=== PATIENT | male | born 1990 | race Two or more races ===

== ENCOUNTER 2020-03-27 16:32 | Outpatient (REF) | payer OTHER, SELFPAY ==
--- NOTE | 2020-03-27 | MR_ITS ---
EXAMINATION: MR LUMBAR SPINE WITHOUT CONTRAST CLINICAL INFORMATION: Low back pain. Radiculopathy. COMPARISON: None. TECHNIQUE: MRI of the lumbar spine was obtained using routine sequences without contrast. FINDINGS: VERTEBRAL BODIES AND PARASPINAL STRUCTURES: There is straightening of the normal lumbar lordosis. There is narrowing of and loss of signal from the intervertebral disc at L4-L5 and L5-S1. There are small Schmorl's nodes at multiple adjacent endplates in the lower thoracic and in the mid and upper lumbar spine. Vertebral body heights are maintained. No fractures are demonstrated. Overall, marrow signal is homogenous. The visualized retroperitoneal and pelvic structures are unremarkable. CONUS MEDULLARIS AND CAUDA EQUINA: Normal, terminating at the level of T12. The lower thoracic spinal cord appears normal. The cauda equina nerve roots and filum terminale appear normal. SPINAL LEVELS: L1-L2: The facet joints appear normal bilaterally. Disc contour is normal. There is no central stenosis or foraminal narrowing. L2-L3: The facet joints appear normal bilaterally. Disc contour is normal. There is no central stenosis or foraminal narrowing. L3-L4: The facet joints appear normal bilaterally. Disc contour is normal. There is no central stenosis or foraminal narrowing. L4-L5: The facet joints appear normal. There is a broad-based posterior disc protrusion with an annular fissure which distorts the ventral thecal sac and narrows the bilateral subarticular recesses. There is mild central stenosis. The neural foramina are patent bilaterally. L5-S1: The facet joints appear normal. There is a central and right paracentral disc protrusion with an annular fissure. There is no mass effect on the thecal sac, but there may be impingement on the traversing right S1 nerve root. The neural foramina are patent bilaterally. There is no central stenosis. MR/MR lumbar spine wo con IMPRESSION: 1. There is a posterior disc protrusion at L4-L5 with narrowing of the bilateral subarticular recesses and mild central stenosis. 2. At L5-S1 there is a central and right paracentral disc protrusion. There may be impingement on the traversing right S1 nerve root. There is no central stenosis.
== END 2020-03-27 16:33 | disposition home or self-care (01) ==
LOC: HO.MRI 16:32
PROVIDERS: PCP Nurse Practitioner Family; Visit Provider Nurse Practitioner Family
DX: M54.5 Low back pain (principal)
CPT/HCPCS: 72148

== ENCOUNTER 2020-03-28 13:31 | Outpatient (REF) | payer OTHER, SELFPAY ==
--- NOTE | 2020-03-28 14:41 | XR_ITS ---
EXAMINATION: CR X-RAY HAND THREE-VIEW BILATERAL CLINICAL INFORMATION: Abnormal on the unilateral findings and serum. COMPARISON: None TECHNIQUE: 3 views each of the bilateral hands were obtained. FINDINGS: There is no acute fracture or dislocation. The joint spaces are unremarkable. The carpal bones are normally aligned. The distal radius and ulna are intact. The soft tissues are unremarkable. XR/XR hand LT min 3V IMPRESSION: Unremarkable bilateral hands.
--- NOTE | 2020-03-28 14:41 | XR_ITS ---
EXAMINATION: CR X-RAY HAND THREE-VIEW BILATERAL CLINICAL INFORMATION: Abnormal on the unilateral findings and serum. COMPARISON: None TECHNIQUE: 3 views each of the bilateral hands were obtained. FINDINGS: There is no acute fracture or dislocation. The joint spaces are unremarkable. The carpal bones are normally aligned. The distal radius and ulna are intact. The soft tissues are unremarkable. XR/XR hand RT min 3V IMPRESSION: Unremarkable bilateral hands.
[2020-03-28 14:58] LABS: Basophils Absolute Auto 0.1 X10*3/uL (0.0-0.2); Basophils Percent Auto 0.9 % (0-2); Eosinophils Percent Auto 0.7 % (0-4); Hematocrit 44.8 % (42-52); Hemoglobin 14.9 g/dl (14.0-18.0); Imm Gran Abs Auto 0.01 X10*3/uL (0.00-0.03); Imm Gran Pct Auto 0.2 % (0.0-0.4); Lymphocytes Absolute Auto 1.6 X10*3/uL (1.2-4.9); Lymphocytes Percent Auto 29.6 % (20-40); Mean Corpuscular HGB Conc 33.3 g/dl (31.0-36.0); Mean Corpuscular Hemoglobin 31.8 pg (27.0-33.0); Mean Corpuscular Volume 95.5 fL (80-98); Mean Platelet Volume 10.6 fL (9.4-12.4); Monocytes Absolute Auto 0.5 X10*3/uL (0.1-1.2); Monocytes Percent Auto 8.4 % (2-11); Neutrophils Absolute Auto 3.2 X10*3/uL (2.0-8.3); Neutrophils Percent Auto 60.2 % (45-73); Platelet Count 196 X10*3/uL (160-400); Red Blood Count 4.69 X10*6/uL (4.60-5.80); Red Cell Distribution Width 12.3 % (11.0-16.0); White Blood Count 5.3 X10*3/uL (4.8-10.8)
[2020-03-28 14:59] LABS: MANUAL DIFF FLAG NO
[2020-03-28 15:29] LABS: Alanine Aminotransferase 27 U/L (0-40); Albumin Level 4.8 g/dL (3.5-5.0); Alkaline Phosphatase 56 U/L (39-117); Anion Gap 15 (12-20); Aspartate Amino Transferase 26 U/L (5-37); Bilirubin Total 0.7 mg/dL (0.0-1.0); Blood Urea Nitrogen 13 mg/dL (9-16); C Reactive Protein 0.09 mg/dL (< or = 0.50); Calcium 9.4 mg/dL (8.4-10.2); Carbon Dioxide 26 mmol/L (22-29); Chloride 102 mmol/L (96-108); Estimated Glomerular Filt Rate > 60; Glucose Random 100 mg/dL (60-115); Potassium 4.8 mmol/l (3.3-5.1); Rheumatoid Factor 43.7 IU/mL (<15.0); Sodium 138 mmol/L (135-145); Total Protein 8.3 g/dL (6.5-8.0)
[2020-03-28 15:57] LABS: Erythrocyte Sedimentation Rate 2 MM/HR (0-15)
[2020-03-29 08:24] LABS: HBsAGNum1 0.23 S/CO (0.00-0.99); Hepatitis A Antibody IgM 0.13 Index (0-0.79); Hepatitis B Surface Antigen Negative (Negative); ~HepC Num1 0.13 S/CO (0.00-0.79); ~Hepatitis A Antibody IgM Nonreactive (Nonreactive); ~Hepatitis C Antibody Nonreactive (Nonreactive)
[2020-03-29 08:27] LABS: HBS Num1 > 1000.00 mIU/mL (0-7.99); HBc Num1 0.08 S/CO (0.00-0.79); Hepatitis B Core Antibody Nonreactive (Nonreactive); ~Hepatitis B Surface Antibody REACTIVE (Nonreactive)
[2020-03-29 14:42] LABS: Complement C3 133 mg/dL (82-185)
[2020-03-30 12:03] LABS: Cyclic Citrullinated Peptide <16 UNITS
[2020-03-30 14:03] LABS: Anti DNA DS Antibody 1 IU/mL; Antibody to SS-A Antigen 1.6 POS AI (<1.0 NEG); Antibody to SS-B Antigen <1.0 NEG AI (<1.0 NEG); SM/Ribonucleoprotein Ab <1.0 NEG AI (<1.0 NEG); Smith Protein <1.0 NEG AI (<1.0 NEG)
[2020-03-30 21:47] LABS: Anti Nuclear Antibody Screen POSITIVE (NEGATIVE); Anti Nuclear Antibody Titer 1:40 titer
[2020-03-31 20:57] LABS: TS Negative Control Passed; TS Panel A 0; TS Panel B 1; TS Positive Control Passed; TSpotTB Negative (SeeBelow)
== END 2020-03-28 13:32 | disposition home or self-care (01) ==
LOC: HO.LAB 13:31
PROVIDERS: PCP Family Medicine; Visit Provider Student in an Organized Health Care Education/Training Program
DX: R76.8 Other specified abnormal immunological findings in serum (principal)
CPT/HCPCS: 36415; 73130; 80053; 85025; 85652; 86038; 86039; 86140; 86160; 86200; 86225; 86235; 86431; 86481; 86704; 86706; 86709; 86803; 87340; 99202

== ENCOUNTER → 2020-04-13 14:31 | Outpatient (BNVA) | payer OTHER, SELFPAY | PROVIDERS: PCP Family Medicine; Visit Provider Student in an Organized Health Care Education/Training Program | DX: Z13.89 Encounter for screening for other disorder (principal) ==

== ENCOUNTER → 2020-10-10 15:31 | Outpatient (BNVA) | payer OTHER, SELFPAY | PROVIDERS: PCP Internal Medicine Hematology & Oncology; Visit Provider Student in an Organized Health Care Education/Training Program | DX: M75.81 Other shoulder lesions, right shoulder (principal); M75.82 Other shoulder lesions, left shoulder; R76.8 Other specified abnormal immunological findings in serum | CPT/HCPCS: 99212 ==

== ENCOUNTER 2021-05-06 18:11 | Emergency (ER) | payer OTHER, SELFPAY ==
--- NOTE | ~2021-05-06 | XR_ITS ---
EXAMINATION: XR WRIST, RIGHT XR FOREARM, RIGHT CLINICAL INFORMATION: Fall on ice. Deformity. COMPARISON: Hand radiograph dated 03/28/2020 TECHNIQUE: PA, lateral, and oblique views of the right wrist. AP and lateral views of the right forearm. FINDINGS: There is a transverse Colles fracture of the distal radius with one half shaft width of dorsal displacement of the distal fracture fragment as well as dorsal tilt of the distal radial articular surface (32 degrees). A few comminuted cortical fragments are evident posteriorly. No appreciable articular cortical involvement. Distal ulna is intact. Soft tissues are swollen. Carpal bones are normal. There is soft tissue swelling in the forearm. No proximal fractures are identified at the radius and ulna. Elbow is unremarkable. XR/XR forearm RT 2V IMPRESSION: Angulated, displaced transverse fracture of the distal radius without appreciable articular involvement.
--- NOTE | ~2021-05-06 | XR_ITS ---
EXAMINATION: XR WRIST, RIGHT CLINICAL INFORMATION: Postreduction. COMPARISON: Same date at 6:58 PM TECHNIQUE: PA, lateral, and oblique views of the right wrist. FINDINGS: Splint material is in place. There is persistent dorsal displacement of the distal radial fracture fragment by two thirds of the shaft width (1.5 cm). There is associated fragment impaction. Angulation is improved as compared to prior. No new fractures. Soft tissues are swollen. XR/XR wrist RT min 3V IMPRESSION: Improved alignment of the distal radial fracture status post reduction with persistent dorsal displacement of the distal fracture fragment.
--- NOTE | ~2021-05-06 | XR_ITS ---
EXAMINATION: XR WRIST, RIGHT XR FOREARM, RIGHT CLINICAL INFORMATION: Fall on ice. Deformity. COMPARISON: Hand radiograph dated 03/28/2020 TECHNIQUE: PA, lateral, and oblique views of the right wrist. AP and lateral views of the right forearm. FINDINGS: There is a transverse Colles fracture of the distal radius with one half shaft width of dorsal displacement of the distal fracture fragment as well as dorsal tilt of the distal radial articular surface (32 degrees). A few comminuted cortical fragments are evident posteriorly. No appreciable articular cortical involvement. Distal ulna is intact. Soft tissues are swollen. Carpal bones are normal. There is soft tissue swelling in the forearm. No proximal fractures are identified at the radius and ulna. Elbow is unremarkable. XR/XR wrist RT 2V IMPRESSION: Angulated, displaced transverse fracture of the distal radius without appreciable articular involvement.
[2021-05-06 18:42] VITALS: BP 134/94; PULSE 115; RESP 20; TEMP 36.6; O2SAT 99; BMI 31.5
[2021-05-06] MEDS: Lidocaine HCl 1 % MPF 5 ML VIAL SUBCUT (20:20)
[2021-05-06] MEDS: Lidocaine HCl 1 % MPF 5 ML VIAL 10 ML SUBCUT (20:20)
--- NOTE | 2021-05-06 20:49 | ED_ITS ---
HPI - Extremity Problem General Chief complaint: Extremity Injury, Upper Stated complaint: broken arm? fell on arm Time Seen by Provider: 05/06/21 19:08 History of Present Illness HPI Narrative: Patient is a 31-year-old male status post accidental fall on an outstretched hand. Complaining of pain to the right wrist area. No head injury. Not on blood thinners. Patient tripped in his house. No significant past medical history. No coughing no congestion or upper respiratory symptoms. No diaphoresis. Related Data Previous Rx's Medication Instructions Recorded ibuprofen 400 mg tablet 400 mg PO Q6H PRN #20 tab 05/06/21 oxycodone 5 mg tablet 5 mg PO Q8H PRN #7 tab 05/06/21 Allergies Allergy/AdvReac Type Severity Reaction Status Date / Time No Known Allergies Allergy Verified 10/10/20 15:34 [No Known Allergies*] Review of Systems Verdana 4l Review of Systems: Verdana 4d No fever no chills no chest Verdana 4d pain or shortness of breath no nausea no vomiting. No focal weakness Verdana 4d Yes all other systems are reviewed and are negative [facility] Past Medical History Attestation statement: The following information was validated with the patient. Medical History JERRICA positive PTSD (post-traumatic stress disorder) Surgical History No significant past surgical history Social History Social History Alcohol intake: current Alcohol intake frequency: a few times a week Alcohol type: wine Cigarettes Per Day: 5 Advance Directives: No Physical Exam Verdana 4l Vital Signs: Verdana 4d Verdana 4d Vital Signs: Verdana 4d Verdana 4Bd Last Vital Signs Verdana 4d Crystal Cutter New 4d Crystal Cutter New 4d Temp 98 F 05/06/21 18:42 Crystal Cutter New 4d Pulse 115 H 05/06/21 18:42 Crystal Cutter New 4d Resp 20 05/06/21 18:42 BP 134/94 H 05/06/21 18:42 Pulse Ox 99 05/06/21 18:42 BMI result Body Mass Index 31.5 Appearance: Alert. Oriented X3. No acute distress. Eyes: Pupils equal, round and reactive to light. ENT: Pharynx normal. Neck: Normal inspection. Neck supple. No lymph nodes noted. No crepitus CVS: Normal heart rate and rhythm. Pulses normal. Normal S1 and S2 Respiratory: No respiratory distress. Breath sounds normal. No Wheezing. No rales Abdomen: Soft and nontender. No rigidity. No distention. good BS x4 Skin: Skin warm and dry. Normal skin color. Normal skin turgor. Extremities: Deformity to the distal right wrist. Distal sensation over the median radial ulnar nerve intact. Moving the finger intact. Capillary refill intact. Neurovascular intact to all extremities. No Lacerations. No Rash Neuro: Oriented X 3. No motor deficit. No sensory deficit. Moving all extermities. No slurred speech MDM - Extremity (Nontraumatic) MDM Narrative Medical decision making narrative: X-ray showed a distal radius fracture. The skin was intact distal neurovascularly intact. Patient well-appearing. After consent was obtained. A hematoma block was applied to the wrist. 5 cc of lidocaine was used. The skin was cleaned with Betadine subsequently a 23 gauge needle was inserted. On draw back there is positive blood. 5 cc of the lidocaine was injected. Good anesthesia was achieved. Attempted to reduce the wrist using hyper extension and then full extension. Patient was then placed in a sugar-tong splint. Post reduction x-ray showed the fracture not dramatically improved. The finding was discussed with orthopedics. Will leave the splint in place and have patient follow-up with Ortho tomorrow morning. In stable condition. Discharge Plan Discharge Clinical Impression: Colles' fracture Patient Disposition: Home, Self-Care Instructions: Wrist Fracture in Adults (ED), Splint Care (ED) Prescriptions: New ibuprofen 400 mg tablet 400 mg PO Q6H PRN (Reason: pain) Qty: 20 0RF oxycodone 5 mg tablet 5 mg PO Q8H PRN (Reason: pain) Qty: 7 0RF Referrals: Joon Rodriguez MD [Physician] - 1 day
[2021-05-06 21:07] VITALS: BP 119/82; PULSE 95; RESP 18; TEMP 36.8; O2SAT 97
[2021-05-06] MEDS: HYDROmorphone HCl 2 MG TABLET PO (21:30)
--- NOTE | 2021-05-06 22:02 | PC.NURSE ---
i ASSUMED CARE OF THIS PT UPON HIS ARRIVAL TO BED 16 WHERE HE PRESENTED S/P rue XRAY FOR EVALUATION OF r WRIST/fa PAIN S/O SLIP AND FALL OUTSIDE PRIOR TO ARRVIAL. tHERE IS OBVIOUS SWELLING NOTED TO r WRIST. pT WAS ADMINISTERED A BLOCKING AGENT AND FRACTURE WAS REDUCED AND SPLINTED.
== END 2021-05-06 22:03 | disposition home or self-care (01) ==
PROVIDERS: Emergency Provider Emergency Medicine Emergency Medical Services; PCP Internal Medicine Endocrinology, Diabetes & Metabolism
DX: S52.531A Colles' fracture of right radius, initial encounter for closed fracture (principal); W01.0XXA Fall on same level from slipping, tripping and stumbling without subsequent striking against object, initial encounter; Y93.9 Activity, unspecified; Y92.9 Unspecified place or not applicable; Y99.9 Unspecified external cause status; Z79.899 Other long term (current) drug therapy
CPT/HCPCS: 73090; 73100; 73110; 96372; 99284

== ENCOUNTER 2021-05-09 12:12 | Outpatient (REF) | payer OTHER, SELFPAY ==
--- NOTE | ~2021-05-09 | XR_ITS ---
EXAMINATION: XR WRIST, RIGHT CLINICAL INFORMATION: Fracture, follow-up COMPARISON: Radiographs right wrist 05/06/2021, TECHNIQUE: PA, lateral, and oblique views of the right wrist. FINDINGS: There is a fracture distal radius with dorsal displacement distal fracture fragment by at least one half bone diameter and mild impaction. The oblique view suggests additional fine linear intra-articular extension on the medial side distal radial fracture fragment. There is an overlying fiberglass splint. No dislocation or destructive process. Remainder of the bony structures appear intact. XR/XR wrist RT min 3V IMPRESSION: Displaced fracture distal right radius with probable intra-articular extension and overlying fiberglass splint.
== END 2021-05-09 12:13 | disposition home or self-care (01) ==
LOC: HO.HOSX 12:12
PROVIDERS: PCP Internal Medicine Endocrinology, Diabetes & Metabolism; Visit Provider Orthopaedic Surgery
DX: S52.501A Unspecified fracture of the lower end of right radius, initial encounter for closed fracture (principal)
CPT/HCPCS: 73110; 99202

== ENCOUNTER 2021-05-10 08:08 | Day surgery (SDC) | payer OTHER, SELFPAY ==
[2021-05-10] VITALS (9 sets, daily range): BP systolic 110–134; BP diastolic 68–77; PULSE 56–71; RESP 16–18; TEMP 36.1–36.4; O2SAT 93–97; BMI 31.5
--- NOTE | ~2021-05-10 | FL_ITS ---
EXAMINATION: XR FLUOROSCOPY WITH IMAGES CLINICAL INFORMATION: Reduction distal radius radial fracture. COMPARISON: Radiographs right wrist 05/09/2021, 05/06/2021 TECHNIQUE: Fluoroscopy performed by Dr. Karen Lema. Fluoroscopy time: 1.16 minutes DAP: [id number] Images: 4 FINDINGS: Distal radial fracture is reduced with volar side plate and screws. Fracture fragments are in near-anatomic alignment. Visualized hardware appear intact. FL/FL guidance in OR IMPRESSION: Fluoroscopy for orthopedic procedure.
[2021-05-10] MEDS: Lactated Ringers 1,000 ML 80 ML IVCONT (09:00)
--- NOTE | 2021-05-10 10:11 | HO.ANESPROP2 ---
HPI - Anesthesia Eval Consult details Narrative: 31 M for ORIF right radius PMFSH Active Problems Active Problems: All Active Problems (Updated 05/09/21 @ 12:52 by Karen Lema MD) Distal radius fracture, right (Acute) Tendinitis of both rotator cuffs (Acute) Elevated rheumatoid factor (Acute) JERRICA positive (Acute) Past Medical History Medical History JERRICA positive PTSD (post-traumatic stress disorder) Family History Family history of problems with anesthesia: No Surgical History Surgical History No significant past surgical history History of Problems with Anesthesia: No Social History Social History (Updated 05/09/21 @ 12:54 by GUANAKO Resendez) Alcohol intake: current Alcohol intake frequency: a few times a week Alcohol type: wine Patient Tobacco Use Status: Former Tobacco user Cigarettes Per Day: 5 Use of substances other than those prescribed or required for medical reasons: No Are you DNR?: No Advance Directives: No Advance Directives Information Provided: Yes Current occupational status: employed 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 Allergies Allergy/AdvReac Type Severity Reaction Status Date / Time No Known Allergies Allergy Verified 05/10/21 08:37 [No Known Allergies*] Exam Exam Date and Time: May 10, 2021 1011 Height,Weight and Vital Signs: Height 5 ft 10 in Weight 99.79 kg Last Vital Signs Temp 97.6 F 05/10/21 08:40 Pulse 58 05/10/21 08:40 Resp 18 05/10/21 08:40 BP 134/75 05/10/21 08:40 Pulse Ox 97 05/10/21 08:40 Airway Mallampati Class: III TM Dist: >3cm Neck ROM: Limited Loose/Missing/Broken Teeth: Yes (Chipped lower ) Heart: rrr Lungs: bl breath sounds Assessment and Plan Assessment Anesthesia Assessment: Anesthesia Plan Discussed and Chart Reviewed Final Anesthetic Review Family History of Problems with Anesthesia: No History of Problems with Anesthesia: No NPO: Yes ASA Class: II Final Preanesthetic Review: Meds/Allgs Chart Reviewed, Consent Obtained/Reviewed and Anes Risks/Benef Reviewed Patient Risk: Intermediate Procedure Risk: Intermediate Assessment/Block/Sedation in SS: Assess/Block/Sedation-SS Anesthetic Plan Anesthetic Plan: GA and Regional Block Disposition: Standard PACU
--- NOTE | 2021-05-10 10:54 | MHC.SHP ---
Pre-Procedural Eval Section A Date of Service: 05/10/21 The patient is an INPATIENT: No Changes since office visit: No Cold of Flu in the past 2 weeks, No New Medical Problems, No Changes in Medication and No Patient answered all questions The History & Physical has been completed within 30 days and I have reviewed it.: Yes Section B Chief Complaint: fx of lower end right radius Allergies: Allergies Allergy/AdvReac Type Severity Reaction Status Date / Time No Known Allergies Allergy Verified 05/10/21 08:37 [No Known Allergies*] Plan I have reviewed the history and physical and performed a pertinent physical examination on my patient. No changes have occurred unless specified.
--- NOTE | 2021-05-10 11:00 | P.OP_ITS ---
Operative Note Operative Note Date of Service: 05/10/21 Narrative: Operative Note Narrative: Preop diagnosis: 1.right Distal radius fracture , intra-articular Postop diagnosis: Same Procedure: 1. Right Distal radius fracture open reduction internal fixation, 2 part intra-articular Surgeon: Karen Lema MD Anesthesia: Mac plus regional block Findings: [ ] Implants: A 3 hole Accu Med volar locking plate, with [ ] 2.3 mm locking pegs/screws, and 3 3.5 mm cortical screws Tourniquet time: [ ] minutes EBL: 5.0 ml Specimen: None Drains: None Complications: None Disposition: Brought to the recovery room in stable condition Plan: Follow-up in 10-14 days for wound check, suture removal and postop radiographs The patient will be placed in either a short-arm cast or a volar wrist splint. Encouraged no lifting of anything heavier than a cell phone. Please encourage active and passive range of motion of the digits. Follow-up at 4-5 weeks postop for repeat radiographs. Indications: The patient is a 31 year old man with right intra-articular distal radius fracture with essentially 100% dorsal translocation of the distal radius . The risks and benefits of operative treatment, including but not limited to risk of damage to blood vessels, nerves, tendons, infection, recurrence, persistent pain or numbness, incomplete resolution of preoperative symptoms, or need for further surgery were discussed with the patient and they wished to proceed with surgery. Procedure: Once consent was obtained patient was brought back to the operating suite and placed in the operating table in a supine position. A regional block was performed by the anesthesia team. Perioperative antibiotics and anesthesia was administered by the anesthesia team. A tourniquet was applied to the proximal aspect of the right upper extremity and the limb was prepped and draped in a standard surgical fashion. The limb was elevated exsanguinated with Esmarch bandage and the tourniquet inflated to 250 mm of mercury for a total tourniquet time of [ ] minutes. The FluoroScan was used throughout the case to assess our reduction, and facilitate implant placement. A gentle closed reduction was 1st performed on the patient's right distal radius fracture. Was assessed radiographically before proceeding with the reduction internal fixation. I then made an 8 cm longitudinal incision over the distal aspect of the flexor carpi radialis tendon. The incision was made through the skin to the subcutaneous tissue using a 15. Blade. Then carefully dissected down to flexor carpi radialis tendon she tenotomy scissors. The FCR tendon sheath was then incised longitudinally using tenotomy scissors under direct visualization. The FCR tendon was then retracted ulnarly. I then made a longitudinal incision in the volar forearm fascia through the floor of FCR tendon sheath using tenotomy scissors under direct visualization. I identified the interval between the radial artery and the flexor tendons. This interval was developed further with my index finger, releasing some of the muscular fibers of the flexor pollicis longus. A dull weatlander retractor was then placed. I then created an ulnarly based flap of the pronator quadratus by releasing the radial and distal edges using a 15. Blade. A Sarmiento elevator was used to elevate the pronator quadratus from the volar surface of the distal radius. This then revealed to us our distal radius fr acture. An open reduction was then performed on our distal radius fracture. I then placed a short [narrow] 3 hole Accu Med volar locking plate on the volar surface of the distal radius. I placed a single K-wire through the distal aspect of the plate and into the distal radius. This was assessed using fluoroscopic images. I was satisfied with the placement of our plate. I then placed [ ] 2.3 mm locking screws/pegs in the distal aspect of the plate and distal radius by 1st drilling bicortically with a 1.8 mm drill bit, measuring with a depth gauge, and placing the appropriate length locking screws/pegs. The placement of our plate and screws was then assessed again using fluoroscopic images. The once satisfied with the placement of the volar locking plate and screws on the distal aspect of the distal radius, the plate was then reduced to the shaft of the radius. I then placed 3 3.5 mm cortical screws to the proximal aspect of the plate and into the shaft of the radius. This was done by 1st drilling bicortically with a 2.8 mm drill bit, measuring with a depth gauge, and placing the appropriate length screw. Final radiographs were then obtained. The DRUJ was assessed and found to be stable on exam. I was satisfied with our reduction and placement of all implants. At this point the wound was irrigated with normal saline. The pronator quadratus was reduced back over the volar locking plate using some 3-0 Vicryl suture material. The tourniquet was then deflated and hemostasis was obtained with a brief period of local pressure and bipolar monopolar electrocautery. The subcutaneous layer was then reapproximated using some 4-0 Vicryl suture, and the skin edges were reapproximated using some 5 0 Prolene suture. The wound was then infiltrated with some 1% lidocaine with epinephrine postop pain control. A sterile dressing and a short dorsal splint allowing for active flexion and extension of the digits was applied. The patient appears to have tolerated the procedure well and with no complications. All digits were well vascularized conclusion of the case.
== END 2021-05-10 15:25 ==
LOC: HO.SSS 08:09
PROVIDERS: PCP Nurse Practitioner Family; Visit Provider Orthopaedic Surgery
PROC: (CPT 25608; principal; 2021-05-10 09:30)
DX: S52.571A Other intraarticular fracture of lower end of right radius, initial encounter for closed fracture (principal); W00.0XXA Fall on same level due to ice and snow, initial encounter; Y93.K1 Activity, walking an animal; Y92.9 Unspecified place or not applicable; Y99.8 Other external cause status; F43.10 Post-traumatic stress disorder, unspecified; R76.0 Raised antibody titer
CPT/HCPCS: 25608; C1713; C1769; J0690; J1100; J1170; J2250; J2405; J3010

== ENCOUNTER 2021-05-23 11:13 | Outpatient (REF) | payer OTHER, SELFPAY ==
--- NOTE | ~2021-05-23 | XR_ITS ---
EXAMINATION: XR WRIST, RIGHT CLINICAL INFORMATION: Fracture COMPARISON: Previous x-rays most recent 05/10/2020 TECHNIQUE: PA, lateral, and oblique views of the right wrist. FINDINGS: There is a plate and screws transfixing the right distal radius fracture. Hardware and alignment appears unchanged. Fracture lines are still seen. No other fracture is seen. Joint spaces are normal. There is overlying soft tissue swelling. XR/XR wrist RT min 3V IMPRESSION: ORIF of right distal radius fracture.
== END 2021-05-23 11:14 | disposition home or self-care (01) ==
LOC: HO.HOSX 11:13
PROVIDERS: Visit Provider Physician Assistant
DX: S52.501D Unspecified fracture of the lower end of right radius, subsequent encounter for closed fracture with routine healing (principal)
CPT/HCPCS: 29085; 73110; 99212

== ENCOUNTER 2021-06-04 12:06 | Outpatient (REF) | payer OTHER, SELFPAY ==
[2021-06-05 13:08] LABS: H Pylori Breath Test Negative (Negative)
== END 2021-06-04 12:07 | disposition home or self-care (01) ==
LOC: HO.LNP 12:06
PROVIDERS: PCP Internal Medicine Endocrinology, Diabetes & Metabolism; Visit Provider Nurse Practitioner Family
DX: R10.9 Unspecified abdominal pain (principal); K21.9 Gastro-esophageal reflux disease without esophagitis; K58.1 Irritable bowel syndrome with constipation; R14.0 Abdominal distension (gaseous)
CPT/HCPCS: 83013; 99202

== ENCOUNTER → 2021-06-12 12:32 | Outpatient (BNVA) | payer OTHER, SELFPAY | PROVIDERS: PCP Internal Medicine Endocrinology, Diabetes & Metabolism; Visit Provider Physician Assistant | DX: S52.501D Unspecified fracture of the lower end of right radius, subsequent encounter for closed fracture with routine healing (principal) | CPT/HCPCS: 29085 ==

== ENCOUNTER 2021-06-27 08:41 | Outpatient (REF) | payer OTHER, SELFPAY ==
--- NOTE | ~2021-06-27 | XR_ITS ---
EXAMINATION: XR WRIST, RIGHT CLINICAL INFORMATION: Pain in right wrist. COMPARISON: Right wrist 05/20/2021 TECHNIQUE: PA, lateral, and oblique views of the right wrist. FINDINGS: There is a comminuted distal radial fracture stabilized with volar plate and screws with fracture fragment in alignment. No change since 05/23/2021 exam. No new fractures seen. XR/XR wrist RT min 3V IMPRESSION: Stabilized distal radial comminuted fracture with volar plate and screws.
== END 2021-06-27 08:42 | disposition home or self-care (01) ==
LOC: HO.HOSX 08:41
PROVIDERS: Visit Provider Orthopaedic Surgery
DX: M25.531 Pain in right wrist (principal); S52.571A Other intraarticular fracture of lower end of right radius, initial encounter for closed fracture; W00.0XXA Fall on same level due to ice and snow, initial encounter; Y93.89 Activity, other specified; Y92.89 Other specified places as the place of occurrence of the external cause; Y99.0 Civilian activity done for income or pay; Z87.891 Personal history of nicotine dependence; Z79.1 Long term (current) use of non-steroidal anti-inflammatories (NSAID); Z79.891 Long term (current) use of opiate analgesic; Z79.899 Other long term (current) drug therapy
CPT/HCPCS: 73110; 99212

== ENCOUNTER 2021-07-25 07:08 | Outpatient (REF) | payer OTHER, SELFPAY ==
--- NOTE | ~2021-07-25 | XR_ITS ---
EXAMINATION: XR WRIST, RIGHT CLINICAL INFORMATION: Right wrist pain. COMPARISON: 06/27/2021 right wrist radiographs. TECHNIQUE: PA, lateral, and oblique views of the right wrist. FINDINGS: The patient is status post distal radial ORIF transfixing a comminuted distal radial fracture with good anatomic alignment and no evidence for hardware malfunction. The fracture lines are still visible without significant interval change. XR/XR wrist RT min 3V IMPRESSION: Good anatomic alignment without hardware abnormality or significant change.
== END 2021-07-25 07:09 | disposition home or self-care (01) ==
LOC: HO.HOSX 07:08
PROVIDERS: Visit Provider Physician Assistant
DX: S52.501D Unspecified fracture of the lower end of right radius, subsequent encounter for closed fracture with routine healing (principal)
CPT/HCPCS: 73110; 99212

== ENCOUNTER 2021-09-18 09:17 | Outpatient (REF) | payer OTHER, SELFPAY ==
--- NOTE | ~2021-09-18 | XR_ITS ---
EXAMINATION: XR WRIST, RIGHT CLINICAL INFORMATION: Follow-up fracture COMPARISON: Previous x-rays most recent June 2021 TECHNIQUE: PA, lateral, and oblique views of the right wrist. FINDINGS: There is ORIF of right distal radius fracture. Orthopedic hardware appears intact. Alignment is unchanged. Fracture lines appear more indistinct suggestive of evidence of healing. There are small soft tissue calcifications or ossifications adjacent to the ulnar styloid. Soft tissues are otherwise unremarkable. XR/XR wrist RT min 3V IMPRESSION: Healing right distal radius fracture.
== END 2021-09-18 09:18 | disposition home or self-care (01) ==
LOC: HO.HOSX 09:17
PROVIDERS: Visit Provider Orthopaedic Surgery
DX: S52.501D Unspecified fracture of the lower end of right radius, subsequent encounter for closed fracture with routine healing (principal)
CPT/HCPCS: 73110; 99212

== ENCOUNTER 2021-12-31 12:11 | Emergency (ER) | payer OTHER, SELFPAY ==
[2021-12-31 12:40] VITALS: BP 136/78; PULSE 76; RESP 18; TEMP 36.9; BMI 31.5
--- NOTE | 2021-12-31 15:33 | ED.BACK ---
HPI - Back Pain/Injury General Chief Complaint: Back Pain/Injury Stated Complaint: Back pain sent from [place] Time Seen by Provider: 12/31/21 15:10 Source: patient Mode of arrival: wheelchair Limitations: no limitations History of Present Illness HPI Narrative: Patient presents emergency department for evaluation of diffuse lower back pain right greater than the left. He states that yesterday he was bending forward and upon standing he felt sudden onset of sharp pain to the lower back. Radiates intermittently to the bilateral legs with weight-bearing. He reports a history of similar pain in the past. Over the past approximate 10 years has episodes of severe back pain every 3-6 months. Denies anything ever having worked for his pain in the past. He is unaware of any known injury to his back. Today he trialed ibuprofen without improvement. Yesterday he trialed oxycodone that was left over from a wrist fracture which did not help his pain either. Patient contacted his primary care doctor and was advised to come to the emergency department. Denies fevers, chills, burning with micturition, urinary frequency/urgency/hesitancy, bladder or bowel dysfunction, numbness or tingling of the perineum or bilateral legs. Denies any recent surgical procedures, any known immune compromising conditions, personal history of cancer, or IV drug usage. MD elicited complaint: back pain Related Data Previous Rx's Medication Instructions Recorded ibuprofen 400 mg tablet 400 mg PO Q6H PRN pain #20 tabs 05/06/21 ibuprofen 600 mg tablet 600 mg PO Q6-8H PRN pain #40 tabs 05/10/21 pantoprazole 40 mg tablet,delayed 40 mg PO DAILY #30 tabs 06/04/21 release sennosides 8.6 mg tablet (Natural 8.6 mg PO BEDTIME constipation #30 06/04/21 Senna Laxative) tabs diazepam 5 mg tablet 5 mg PO BID PRN muscle spasm #7 12/31/21 tabs Allergies Allergy/AdvReac Type Severity Reaction Status Date / Time No Known Allergies Allergy Verified 09/18/21 15:04 [No Known Allergies*] Review of Systems Review of Systems: Constitutional: No weight loss, fever, chills, weakness or fatigue. HEENT: No visual loss, blurred vision, double vision. No hearing loss, sneezing, congestion, runny nose or sore throat. Skin: No rash or itching. Cardiovascular: No chest pain, chest pressure or chest discomfort. No palpitations or pedal edema. Respiratory: No shortness of breath, cough or sputum production. Gastrointestinal: No anorexia, nausea, vomiting or diarrhea. No abdominal pain or blood in stool. Genitourinary: No burning micturition. No urinary frequency or incontinence. Neurologic: No headache, dizziness, syncope, unilateral weakness, ataxia, numbness or tingling in the extremities. No change in bowel or bladder control. Musculoskeletal: + Back pain as noted in HPI. No joint pain or stiffness. Hematologic: No bleeding or bruising. Lymphatics: No enlarged lymph nodes. Psychiatric:No depression or anxiety. Endocrine: No polyuria or polydipsia. Yes all other systems are reviewed and are negative [facility] Past Medical History Attestation statement: The following information was validated with the patient. 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 Blood pressure normal.? Heart rate normal.? Respiration rate normal. Temperature normal.? Oxygen saturation normal. Appearance: Alert.?Oriented to person, place and time. No acute distress.?Normal affect. Eyes: Pupils equal, round and reactive to light.? ENT: Pharynx normal.?? Neck: Normal inspection.? Neck supple.?? CVS: Heart sounds normal. Normal heart rate and rhythm.? Pulses normal; bilateral radial pulses 2+, bilateral posterior tibial/dorsalis pedis pulses 2+.? Respiratory: No respiratory distress.? Lung sounds clear to auscultation bilaterally?? Abdomen: Soft and non-tender. Normoactive bowel sounds. No pulsatile mass.?? Skin: Skin warm and dry.? Normal skin color.? Normal skin turgor.?? Extremities: No lower extremity edema.? No calf ttp? Back: + moderate paraspinal muscular tenderness from lumbar region to coccyx. No CVA tenderness. No midline spinal tenderness, step-off's, or deformity. Decreased ROM to bilateral lower extremities. Straight leg test positive on right with minimal movement; Straight leg test positive on left with minimal movement. No rashes, lesions, areas of induration or fluctuance, or signs of infection noted. Neuro: Moves all extremities spontaneously. Sensation to light touch intact bilaterally. Patellar and Achilles reflex 2+ bilaterally. Patient with significant difficulty transferring from wheelchair requiring to assist from staff. No focal neuro deficits. Course Course Course Narrative: Patient is a 31-year-old male with a past medical history PTSD, chronic lower back pain presenting to emergency department today for evaluation of back pain. Onset was yesterday precipitated by bending forward and sudden pain upon standing. Pain is diffuse across the lower back, has palpable tenderness of the paraspinal muscles, at this time pain is most consistent with muscular pain, although cannot completely exclude herniated disc. On neurological exam there are no deficits. Not consistent with spinal fracture, spinal infection, epidural abscess, AAA, or dissection. No high risk past medical history including incontinence, fever, immunosuppression, recent surgery or lumbar puncture, coagulopathy, significant trauma, recent unintentional weight loss, pulsatile mass, history of cancer, history of TB, history of IV drug use that would warrant MRI or CT. Not consistent with pyelonephritis, urinary tract infection, renal calculi. On exam no concern for cauda equina syndrome. Of note patient underwent lumbar spine MRI in February 2020, denies having any more recent MRIs, revealed disc protrusion at L4-L5 and mild central stenosis as well as disc protrusion at L5-S1 with possible nerve root impingement and no central stenosis. At this time will trial diazepam orally and re-evaluate Reevaluation(s) Reevaluation #1: Spoke with patient at this time, he is requesting to have an MRI obtained as he was advised by his primary care provider to come to the emergency department to have an MRI done. Discussed with patient at this time there is no indications for an MRI. Patient declined having rectal examination performed, stating that these have been performed in the past without any abnormalities. Again, based on current available physical exam findings there are no neurological deficits. Patient received diazepam approximately 40 minutes ago without significant improvement at this time. Time: 16:42 Reevaluation #2: Patient noted to be ambulating at this time with slow steady gait and the use of a cane, and a visitor by his side. Reports improvement in pain after diazepam. No imaging is currently indicated at this time. Plan for discharge home with short prescription for diazepam, reviewed worrisome signs and symptoms to return back to the emergency department for, and follow-up with primary care provider, and patient agreed with plan. Discharged home in stable condition. Time: 17:27 MDM - Back Pain/Injury Medical Records Attestation: I reviewed the patient's medical records. Discharge Plan Discharge Clinical Impression: Lumbar radiculopathy Patient Disposition: Home, Self-Care Instructions: Lumbar Radiculopathy (ED), Lower Back Exercises (ED) Additional Instructions: You can take ibuprofen 200 mg, 3 tablets (600mg) every 6-8 hours as needed for pain, in addition to Tylenol 500 mg, 2 tablets (1,000mg) every 4-6 hours as needed for pain, but not to exceed 3 doses daily (3,000mg).? You have been given a new prescription for diazepam to use as needed for severe pain. This medication may make you drowsy, you should not drive, drink alcohol, operate machinery, or work while taking this medication. Please contact your primary care provider and arrange for a follow-up visit. Return to the emergency department with any new or significantly worsening symptoms or concerns Prescriptions: New diazepam 5 mg tablet 5 mg PO BID PRN (Reason: muscle spasm) Qty: 7 0RF No Action ibuprofen 400 mg tablet 400 mg PO Q6H PRN (Reason: pain) Qty: 20 0RF ibuprofen 600 mg tablet 600 mg PO Q6-8H PRN (Reason: pain) Qty: 40 0RF sennosides [Natural Senna Laxative] 8.6 mg tablet 8.6 mg PO BEDTIME Qty: 30 3RF pantoprazole 40 mg tablet,delayed release (DR/EC) 40 mg PO DAILY Qty: 30 2RF Rx Instructions: take one tablet half an hour before breakfast
--- OUTSIDE RECORDS SUMMARY | 2021-12-31 15:55 | XMS_ITS | Encounter Summary ---
:1990 Author Organization [facility] Address [address] [place] [id number] Support Name Relationship Address Phone RESHMA ROUSE Unavailable [address] [place] [address] RESHMA ROUSE Unavailable [address] [place] [address] Selected Encounter This section includes the information on record at [place] for the Encounter. Date/Time Encounter Type Encounter Reason Provider Source Description Feb 02, 2021 PSYCL TST EVAL PSYCHOLOGICAL ICD-10-CM MALINOFSKY,TER 10:30 AM PHYS/QHP EA TESTING F43.12 JESSICA Post-traumatic stress disorder, chronic with Provider Comments: Chronic post-traumatic stress disorder following combat ([facility] [id number]) IHE Encounter Template Text not used by [facility] Assessments - Encounter Diagnoses This section includes the primary and secondary diagnoses documented for the Encounter. 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 This section includes future appointments and future orders which are active, pending orscheduled.Future Appointments This section includes appointments that were scheduled to occur 6 months from the date of the Encounter, up to a maximum of 20 appointments. The data comes from all [place] treatment facilities. Appointment Date/Time Appointment Type Appointment Facili ty Name Feb 28, 2021 11:00 AM AMBULATORY - PSYCHIATRY [place] [facility] [place] [facility] Mar 07, 2021 01:00 PM AMBULATORY - PSYCHIATRY [place] [facility] [place] [facility] Mar 14, 2021 01:00 PM AMBULATORY - PSYCHIATRY [place] [facility] [place] [facility] Apr 27, 2021 11:30 AM AMBULATORY - MEDICINE [place] [facility] [place] [facility] May 07, 2021 08:15 AM AMBULATORY - REHAB MEDICINE [place] [facility] [place] [facility] May 09, 2021 12:15 PM AMBULATORY - MEDICINE [place] [facility] [place] [facility] Jun 04, 2021 12:00 PM AMBULATORY - MEDICINE [place] [facility] [place] [facility] Social History: Smoking Status (Most current) and Tobacco Use (All prior to encounter date) This section includes the most current, and the historical, smoking and tobacco-related health factors from the [facility] facility where the Encounter took place.Current Smoking Status This section includes the most current smoking, or tobacco-related health factor, from the [place] facility where the Encounter took place. Date/Time Current Smoking Status Comment Facility August 03, 2020 02:00 PM VA-TOBACCO USER EVERY DAY [facility] Tobacco Use History This section includes a history of the smoking, or tobacco- related health factors, that were collected on or before the date of the Encounter. The data comes from the [place] facility where the Encounter took place. 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 August 03, 2020 02:00 PM VA-TOBACCO USER EVERY DAY [facility] August 10, 2019 01:26 PM VA-TOBACCO NEVER USED [facility] Jul 15, 2018 03:43 PM VA-TOBACCO FORMER USER [facility] Jul 15, 2018 03:43 PM VA-TOBACCO QUIT 1 TO < 5 V A CNTRL WSTRN YRS [facility] August 22, 2017 03:08 PM QUIT TOBACCO USE 1-7 VA CN TRL WSTRN YEARS AGO [facility] August 22, 2017 03:08 PM V1-QUIT TOBACCO USE > 1 VA [facility] W[facility] YEAR AGO [facility] Dec 31, 2016 01:45 PM QUIT TOBACCO USE IN PAST V A CNTRL WSTRN YEAR quit 11/21/16 [facility] Nov 20, 2016 08:15 PM TOBACCO INPATIENT [facility] DECLINES MEDS [facility] Jun 26, 2016 07:05 AM CURRENT SMOKER [facility] Jun 26, 2016 07:05 AM V1-PT NOT INTERESTED IN [facility] QUIT TOBACCO USE [facility] Feb 28, 2014 01:16 PM CURRENT SMOKER [facility] W STR[facility] < 1 PP week [facility] Feb 28, 2014 01:16 PM V1-PT DECLINES REF TO [facility] C [facility] TOBACCO CESS [facility] Feb 28, 2014 01:16 PM V1-PT DECLINES TOBACCO [facility] CESSATION MEDS [facility] Feb 28, 2014 01:16 PM V1-PT NOT INTERESTED IN [facility] QUIT TOBACCO USE [facility] August 17, 2013 09:43 AM V1-PT DECLINES REF TO VA C [facility] TOBACCO CESS [facility] August 17, 2013 09:43 AM V1-PT DECLINES TOBACCO [facility] CESSATION MEDS [facility] August 17, 2013 09:43 AM V1-PT THINKING ABOUT QUIT [facility] TOBACCO USE [facility] Jan 28, 2013 09:57 AM CURRENT SMOKER [facility] [place] [facility] Jan 28, 2013 09:57 AM V1-PT DECLINES REF TO VA C N[facility]L [facility] TOBACCO CESS [facility] Jan 28, 2013 09:57 AM V1-PT DECLINES TOBACCO [facility] CESSATION MEDS [facility] Jan 28, 2013 09:57 AM V1-PT NOT INTERESTED IN [facility] QUIT TOBACCO USE [facility] Oct 18, 2011 02:45 PM QUIT TOBACCO USE IN PAST V A CNTRL WSTRN YEAR [facility] Oct 18, 2011 12:56 PM CURRENT SMOKER [facility] half pack a week [facility] Encounter Notes: All associated encounter notes This section contains the clinical notes associated to the Encounter. Date/Time Encounter Note(s) Provider Source Feb 02, 2021 10:32 MENTAL HEALTH CONSULT: PREETI MEDRANO [place] [facility] AM LOCAL TITLE: CONSULT REPORT/NEUROPSYCHOLOGY [facility] STANDARD TITLE: MENTAL HEALTH CONSULT DATE OF NOTE: FEB 02, 2021@10:32 ENTRY DATE: FEB 02, 2021@10:32:52 AUTHOR: PREETI MEDRANO EXP COSIGNER: URGENCY: STATUS: COMPLETED NEUROPSYCHOLOGY CONSULTATION Name: GRAYSON ROUSE ID: [id number] : 1990 (age 30) HUSAIN: 02/02/2021 EXAMINER: Preeti Medrano, PhD MODALITY: in person in clinic PROCEDURES: Interview Cognitive Tests: Jlioim-Eevjbm-Qefxlzfkjs (from WAIS-4) D-KEFS Echo Test Personality Inventory: Personality Assessment In ventory Dissociation Inventory: Multidimensional Invento ry of Dissociation (MID 6.0) Symptom Validity: embedded symptom validity test s REFERRAL CONCERN: Grayson Rouse (age 30) was referred b y Dr. aKren Kidd, psychologist. She specified: Vet reports unusua l symptoms; ruling out psychosis and use of validit y measures would be helpful. Vet is very focused on obtaining a diagnosis of and treatment for ADHD. Treatment is deemed inappropriate due to the possibility of activati ng a Vet who has extensive violent fantasies. ADHD testing is not part of t his request. RISK ASSESSMENT: NO SI/HI ideation in the past month. Further, Quick icidality per CARLOS is in the normal range (T47). ASSESSMENT CONCLUSION 1. Grayson Rouse presented straightfo rwardly, within normal limits in interview. 2. Brief cognitive testing revealed intact, norm al scores for working memory, procedural memory, and capacity to learn and sustain rule-following after only a single presentation of the rules. 3. He responded validly to both personality and dissociation inventories. Personality and disociation inventories together suggest the dissociative subtype of PTSD, with auditory hallucinations. I n addition, his particular dissociative experience includes depersonalizati on, time loss, partially- dissociated angry and physic ally aggressive alter, dissociative amnesia, general feeling of memory loss. 4. He has underlying identity confusion and auto biographical memory concerns. He endorsed symptoms of affective inst ability, depression, and anxiety, but is not immediately aware of mood sy mptoms in interview. Obvious manic disorder was ruled out in interview and pe rsonality inventory. INTERVIEW: 's Account of the Concerning Referral Is marion: He has not had physical fight in a long time . No one is going out during the coronavirus. I'll attempt to talk to the person first and buy them a drink afterwards. I have not gone out looking for a fight in a year. I almost did a few weeks ago, when I was cutting my hair, but my gf kept me back. I get this itch inside my head, like I need to. SYMPTOMS and History of Present Illness: (1) Incident with loss of awareness: I was confused why the police were after me [at one time]. (2) Aggressive episodes: like cutting my hair, one of the most common times, I get very aggressive. If there's a knife there, I'll cut myself up crazy, while I'm stuck in the bathroom. Then I'd go to the bad parts of [place] and try to fight someone. I start talking to mys elf. It gets pretty bad. I feel like I change completely and I'm ok with wh at's going on. (3) Hears voices when driving: He hears voices ( a psychotic symptom) when he drives a lot. There's a lot of screaming. The A dderall made that go away. He said he did not have the symptom previously i n his life. 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 I got donald k in 2011. Driving in general makes me nervous. If I can get my gf to drive, I will. T he screaming voices are experienced only when he is driving, no other ti me. It doesn't matter what vehicle he is driving.He did not hear sc reaming [the psychotic symptom] during his deployment. 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 I feel like I am there although he continues to know where he is in the present moment. About the frequency of Flashbacks, not so much . (5) Lower back pain: He has lower back pain and had to take medical leave for one month recently. He still has pain. 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 One time, I was hammering away, and someone screamed ---they're shooting at you---and I did not realize it. I liked it over there--it was re ally fun. He described liking feeling/living on the edge, where it feels like something's going wrong [he leans to one side] and then it's ok again. [facility]ERANS CURRENT CHIEF COMPLAINT: I asked for an ADHD test. Dr. Kidd wants to do a different test first. Dr. Galeas prescribed Adderall. Dr. Schofield wa nts to go a different route. 's Account of his Medication History: He is not taking any medication at this point. He has been off Adderall for one year. He tried another medication but feels he did not get benefit from it. [place]'s Account of his ADHD history: He never was diagnosed with ADHD. With Dr. Galeas, we tried a lot of things and a lot of things did not work. When I was at school, someone mentioned Adderall . Dr. Galeas was willing to try. We saw improvements, and so he was willing to let me continue it. EDUCATIONAL HISTORY: Completed high school at the typical age. 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 ..................................... CAVEAT: Early Background History: Towards a clear presentation to of the dissociation inventory, as much as possible without bias; an d for clarity in this report, early background life history was not obtained today. See the followin g article for a comprehensive review and rationale for this decision: Cognitive Processes in Disso ciation: An Analysis of Core Theoretical Assumptions by MONICA Sauceda SO Lilienfeld, H. Mer ckelbach): Psychological Bulletin, 2008, Vol 134. .................................... 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 Unless I do it 20 ti mes, it doesn't stick. The other [prior] jobs were easier because they were repetitive [manual labor] even in [place]. BEHAVIORAL OBSERVATIONS: Appearance: WNL grooming/hygiene/attire appears stated age Motor : WNL fine/gross motor ambulation Speech/Language: WNL expressive/receptive nonverbals Interpersonal: WNL eye contact Thoughts: WNL logical/linear Perceptual/flashbacks: WNL no intrusions in sess ion Reality testing: WNL during interview/test no intrusions in session Behavior: WNL in this session ................................................................................ COGNITIVE TEST RESULTS: Letter-Number Sequencing (a working memory task) raw score = 20 scaled score= 10 percentile=50 ra ting=Average ................................ D-KEFS Echo Test (an executive function and pro cedural memory task) Total Achievement Score = 19 scaled score=11 per centile=63 rating=Average Mean First Move Time = 5.22 scaled score=9 perce ntile=37 rating=Average Total Rule Violations = 0 Oarll-Mfqquebovv-lpx-Item Ratio = 0 scaled score =11+ percentile=63+ rating=Average ................................................................................ PERSONALITY INVENTORY RESULTS: Personality Assessment Inventory The results are available in [employer] . Embedded symptom validity criteria are within no rmal limits, per indices of malingering and defensiveness. [place]'s responses have a h igh NIM (negative impression management) and low PIM (positive impression management). [place]'s responses statistically best m atch the following clinical diagnostic samples (highest at top, in order): PTSD Auditory hallucinations Treatment with antipsychotic medication Schizophrenia Persecutory delusion Anxiety Disorder Cluster 2 Dysthymia Among the subscales, the following are clinicall y elevated (above T70 or closely approaching T70): Conversion subscales: somatization and health c oncerns, but not conversion Anxiety subscales: cognitive, affective, physio logical Anxiety-related disorders: traumatic stress, bu t not OCD nor phobias Depression subscales: cognitive, affective, phy siological Paranoia subscale: Resentment Schizophrenia subscale: social detachment and t hought disorder but not psychotic experiences Borderline subscales: affective instability, se lf-harm, identity problem but not negative relationships Aggression subscales: aggressive attitude and p hysical aggression but not verbal aggression. The following are entirely within normal limits: All taryn subscales (activity level, grandiosit y, irritability) All antisocial subscales (antisocial behaviors, egocentricity, stimulus-seeking) ................................................................................ DISSOCIATION INVENTORY RESULTS: Multidimensional Inventory of Dissociation Embedded symptom validity results are well withi n acceptable limits. [place]'s responses are NOT typical for PTSD, ty pe I (classic subtype). There is partial dissociative experience. He has concerns about his au tobiographical memory, amnestic disorientation, and general distress about his memory. He has elevations in the following areas: General Dissociation Symptoms: Memory problems Partial Dissociation (Intrusions): Thought insertion 'Made'/Intrusive emotions 'Made'/Intrusive impulses Self-puzzlement Full Dissociation (Amnesia): Time Loss Told of Actions Dissociation Scales: Depersonalization Parts and Alters Scales: I have parts. Angry parts. Characterological Scales: Identity Confusion Functionality/Impairment Cognitive Distraction ASSESSMENT CONCLUSION REFERRAL CONCERN: Grayson Rouse (age 30) was referred b y Dr. Karen Kidd, psychologist. She specified: Vet reports unusua l symptoms; ruling out psychosis and use of validit y measures would be helpful. Vet is very focused on obtaining a diagnosis of and treatment for ADHD. Treatment is deemed inappropriate due to the possibility of activati ng a Vet who has extensive violent fantasies. ADHD testing is not part of t his request. RISK ASSESSMENT: NO SI/HI ideation in the past month. Further, Quick icidality per CARLOS is in the normal range (T47). RESULTS: 1. Grayson Rouse presented straightfo rwardly, within normal limits in interview. 2. Brief cognitive testing revealed intact, norm al scores for working memory, procedural memory, and capacity to learn and sustain rule-following after only a single presentation of the rules. 3. He responded validly to both personality and dissociation inventories. Personality and disociation inventories together suggest the dissociative subtype of PTSD, with auditory hallucinations. I n addition, his particular dissociative experience includes depersonalizati on, time loss, partially- dissociated angry and physic ally aggressive alter, dissociative amnesia, general feeling of memory loss. 4. He has underlying identity confusion and auto biographical memory concerns. He endorsed symptoms of affective inst ability, depression, and anxiety, but is not immediately aware of mood sy mptoms in interview. Obvious manic disorder was ruled out in interview and pe rsonality inventory. 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
--- OUTSIDE RECORDS SUMMARY | 2021-12-31 15:55 | XMS_ITS | Encounter Summary ---
:1990 Author Organization Department [facility] rs Address [address] [place] [id number] Support Name Relationship Address Phone RESHMA BARROW Unavailable [address] [place] [address] RESHMA BARROW Unavailable [address] [place] [address] Selected Encounter This section includes the information on record at OR for the Encounter. Date/Time Encounter Type Encounter Reason Provider Source Description Feb 07, 2021 07:43 Outpatient PRIMARY NITIN RENDON AM Encounter CARE/MEDICINE DHRUV Juan Jose Encounter Template Text not used by OR Plan of Treatment: Future Appointments (+ 6 months) and Future Tests (+/- 45 days) The Plan of Treatment section includes future care activities for the patient from all OR treatmentfacilities. This section includes future appointments and future orders which are active, pending orscheduled.Future Appointments This section includes appointments that were scheduled to occur 6 months from the date of the Encounter, up to a maximum of 20 appointments. The data comes from all OR treatment facilities. Appointment Date/Time Appointment Type Appointment Facili ty Name Feb 28, 2021 11:00 AM AMBULATORY - PSYCHIATRY [place] [facility] [place] [facility] Mar 07, 2021 01:00 PM AMBULATORY - PSYCHIATRY [place] [facility] [place] [facility] Mar 14, 2021 01:00 PM AMBULATORY - PSYCHIATRY [place] [facility] [place] [facility] Apr 27, 2021 11:30 AM AMBULATORY - MEDICINE [place] [facility] [facility] May 07, 2021 08:15 AM AMBULATORY - REHAB MEDICINE [place] [facility] [place] [facility] [place] [facility] May 09, 2021 12:15 PM AMBULATORY - MEDICINE [place] [facility] [facility] Jun 04, 2021 12:00 PM [facility] Social History: Smoking Status (Most current) and Tobacco Use (All prior to encounter date) This section includes the most current, and the historical, smoking and tobacco-related health factors from the OR facility where the Encounter took place.Current Smoking Status This section includes the most current smoking, or tobacco-related health factor, from the OR facility where the Encounter took place. Date/Time Current Smoking Status Comment Facility August 03, 2020 02:00 PM VA-TOBACCO USER EVERY DAY [facility] Tobacco Use History This section includes a history of the smoking, or tobacco- related health factors, that were collected on or before the date of the Encounter. The data comes from the OR facility where the Encounter took place. 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 [facility] [place] [facility] August 03, 2020 02:00 PM VA-TOBACCO USE MED NO OR C [facility] [place] [facility] August 03, 2020 02:00 PM VA-TOBACCO USE WI 30 MIN V A [facility] [place] [facility] August 03, 2020 02:00 PM VA-TOBACCO USER EVERY DAY [facility] [place] [facility] August 10, 2019 01:26 PM VA-TOBACCO NEVER USED VA C [facility] [place] [facility] Jul 15, 2018 03:43 PM VA-TOBACCO FORMER USER [facility] [place] [facility] Jul 15, 2018 03:43 PM VA-TOBACCO QUIT 1 TO < 5 [facility] August 22, 2017 03:08 PM QUIT TOBACCO USE 1-7 [facility] August 22, 2017 03:08 PM V1-QUIT TOBACCO USE > 1 [facility] Dec 31, 2016 01:45 PM QUIT TOBACCO USE IN PAST V A CNTRL W[facility] YEAR quit 11/21/16 [place] [facility] Nov 20, 2016 08:15 PM TOBACCO INPATIENT [facility] DECL[place]ES [facility]S [place] [facility] Jun 26, 2016 07:05 AM CURRENT SMOKER [facility] [place] [facility] Jun 26, 2016 07:05 AM V1-PT NOT INTERESTED IN [facility] QUIT TOBACCO USE [place] [facility] Feb 28, 2014 01:16 PM CURRENT SMOKER VA [facility] < 1 PP week [facility] Feb 28, 2014 01:16 PM V1-PT DECLINES REF TO [facility] C [facility] TOBACCO CESS [facility] [place] Feb 28, 2014 01:16 PM V1-PT DECLINES TOBACCO [facility] Feb 28, 2014 01:16 PM V1-PT NOT INTERESTED IN VA [facility] QUIT TOBACCO USE [facility] August 17, 2013 09:43 AM V1-PT DECLINES REF TO [facility] C [facility]BACCO [facility]ESS [facility] August 17, 2013 09:43 AM V1-PT DECLINES TOBACCO [facility] CESSATION MEDS [facility] August 17, 2013 09:43 AM V1-PT THINKING ABOUT QUIT [facility] TOBACCO USE [facility] Jan 28, 2013 09:57 AM CURRENT SMOKER [facility] [place] [facility] Jan 28, 2013 09:57 AM V1-PT DECLINES REF TO VA C [facility]BACCO [facility]ESS [facility] Jan 28, 2013 09:57 AM V1-PT DECLINES TOBACCO [facility] Jan 28, 2013 09:57 AM V1-PT NOT INTERESTED IN VA [facility] QUIT TOBACCO USE [facility] Oct 18, 2011 02:45 PM QUIT TOBACCO USE IN PAST V A CNTRL W[facility]N YEAR [facility] Oct 18, 2011 12:56 PM CURRENT SMOKER VA CN[facility] W [facility] half pack a week [facility] Encounter Notes: All associated encounter notes This section contains the clinical notes associated to the Encounter. Date/Time Encounter Note(s) Provider Source Feb 07, 2021 07:43 AM PRIMARY CARE SECURE MESSAGING: NATALIE RENDON [facility] LOCAL TITLE: PRIMARY CARE SECURE MESSAGING LIOR RAMOS [facility] STANDARD TITLE: PRIMARY CARE SECURE MESSAGING DATE OF NOTE: FEB 07, 2021@07:43:23 ENTRY DATE: FEB 07, 2021@07:43:24 AUTHOR: NITIN RENDON EXP COSIGNER: URGENCY: STATUS: COMPLETED PRIMARY CARE SECURE MESSAGING Has ADDENDA * ------Original Message Sent: 02/07/2021 07:23 AM From: DRAGAN BARROW To: Valeria LUQUE[facility] Subject: Viagra Good morning, I have talk with Dr. Max tapia about using Viagra in the past and I believe if I remember correct that he said I w ould just need to ask and I could get it ordered for me. I would like to kno w if I can get it ordered for me and I can pick it up at the OR today. Thank y jr /martita/ JOHN CALDERA REGISTERED NURSE Signed: 02/07/2021 07:43 Receipt Acknowledged By: 02/07/2021 07:56 /martita/ CASSIUS Flowers DNP, [facility] Primary Care Nurse Practitioner 02/07/2021 ADDENDUM STATUS: COMPLETED please order viagra for to pick out hand @ [facility] pavithra /martita/ JOHN CALDERA REGISTERED NURSE Signed: 02/07/2021 10:21 Receipt Acknowledged By: 02/07/2021 10:56 /martita/ CASSIUS Flowers DNP, [facility] Primary Care Nurse Practitioner 02/07/2021 ADDENDUM STATUS: COMPLETED Telephone call to , he is having issues w ith ED, no pain. Able to acheive, not maintain. Edcuated on use of silden afil, he is in agreement with trial. /martita/ PEBBLES Flowers DNP-NATALIE, [facility] Primary Care Nurse Practitioner Signed: 02/07/2021 10:57
--- OUTSIDE RECORDS SUMMARY | 2021-12-31 15:55 | XMS_ITS | Continuity of Care Document ---
:1990 Author Organization [facility] Care Team Providers Name Role Phone [facility] Unavailable Unavailable Problems Combined list of problems from Department of Defense and Veterans Affairs facilities. It does not include entries that were removed or entered in error. 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 Patient has had a complete Urological evaluation with Renal US, CT Scan of Abd and Pelvis and Cystoscopy which were all normal. REC : No further Urological evaluation. Would recommmend that the patient be referred to Nephrology. Patient counselled on the above. All questions were answered. Patient verbalized understanding. He will f/u with primary care for possible referral. 20mins. blood in urine Active Condition Possible DoD nephrolithiasis.Wi ll refer to [facility], Dr. Rodríguez Oct, Friday at 1300 upper respiratory Inactive Condition HYDRATE D oD infection acute cystitis acute Inactive Condition DoD acute nephritis Inactive Condition DoD visit for: Active Condition DoD services physical visit for: Inactive Condition DoD administrative purpose Adult screening Active Condition Apr 14 0 [facility] status Entered By: CAMERON ALLEN [facility] Comment: 04/12/2019 H CS - Pre op screening EKG- NSR/ cxr - neg Alcohol abuse Active Condition [facility] CNT RL (SNOMED CT [facility]N [id number]) [place] [facility] Chronic Active Condition Oct 14, 2018 [facility] C NTRL post-traumatic Entered By: CARLOS RN stress disorder MARY TRAVISCHUSEANTOLIN following Comment: Re viewed HCS combat Depersonalization Active Condition [facility] disorder [facility] [place] [facility] Depressive disorder Active Condition Oct 14, 2018 [facility] Entered By: HUGH TRAVIS,MARY H [place] Comment: Reviewed HC S Diarrhea Active Condition [facility] [place] [facility] Erectile Active Condition [facility] dysfunction [facility] [place] [facility] Hyperlipidemia Active Condition [facility] CN TRL [facility] [place] [facility] Hypersomnia Active Condition [facility] [place] [facility] Intermittent Active Condition Oct 14, 2018 V A CNTRL explosive disorder Entered By: HUGH TRAVIS,MARY H [place] Comment: Reviewed HC S Joint pain Active Condition [facility] [place] [facility] Low back pain Active Condition [facility] CNT RL [facility] [place] [facility] Reduced libido Active Condition [facility] CN TRL [facility] [place] [facility] Tinnitus Active Condition [facility] [place] [facility] Attention deficit Inactive Condition 10/09/2020 Oct 14, 2018 [facility] hyperactivity Entered By: JOJO N jelly, THADDEUS,MARY H [place] predominantly Comment: Reviewe d HCS inattentive type Apr 07, 2019 Entered By: CAMERON FENG Comment: AMPHETAMINE/DEXTRO AMPHET 30MG SA CAP ( UDS/ M[place] - ordered 04/07/2019 Oct 09, 2020 Entered By: JOSÉ SINGH Comment: This diagnosis being inactivated due to clinical inadvisibility of treating for ADHD Hematuria, Inactive Condition 08/22/2017 Oct 18, 2011 [facility] unspecified Entered By: GEORGE LOZANO Comment: -- gross HC S hematuria 2007 with negative evaluation HOUSING/ECONO Inactive Condition 08/22/2017 [facility] CIRCUM NEC [facility] [place] [facility] Knee: arthralgia Inactive Condition 07/21/2018 [facility] [place] [facility] Liver function Inactive Condition 08/22/2017 [facility] C [facility]L tests abnormal [facility] [place] [facility] Neck Pain Inactive Condition 07/21/2018 [facility] [place] [facility] Tobacco dependence, Inactive Condition 08/22/2017 [facility] continuous (SNOMED W STRN CT [id number]) [place] [facility] Diagnosis: Active Diagnosis [facility] ICD-10-CM Z02.89 WST RN Encounter for other [place] administrative HCS examinationswith Provider Comments: Encounter for other Administrative Examinations Diagnosis: Active Diagnosis [facility] ICD-10-CM M79.642 WS TRN Pain in left [place] handwith Provider HC S Comments: Pain in left Hand Diagnosis: Active Diagnosis [facility] ICD-10-CM M25.542 WS TRN Pain in joints of [place] left handwith HCS Provider Comments: Pain in joints of left hand Diagnosis: Active Diagnosis [facility] ICD-10-CM I10 WSTRN Essential (primary) [place] hypertensionwith HCS Provider Comments: Hypertension Diagnosis: Active Diagnosis [facility] ICD-10-CM R19.7 WSTR N Diarrhea, [place] unspecifiedwith [facility] Provider Comments: Diarrhea (SNOMED CT [id number]) Diagnosis: Active Diagnosis [facility] ICD-10-CM F48.1 WSTR N Depersonalization-d [place] erealization HCS syndromewith Provider Comments: Depersonalization disorder ([facility] [id number]) Diagnosis: Active Diagnosis [facility] ICD-10-CM F43.12 WST RN Post-traumatic [place] stress disorder, [facility] chronicwith Provider Comments: Chronic post-traumatic stress disorder following combat ([facility] [id number]) Diagnosis: Active Diagnosis [facility] ICD-10-CM M25.50 WST RN Pain in unspecified [place] jointwith Provider H CS Comments: Joint pain ([facility] [id number]) Diagnosis: Active Diagnosis [facility] ICD-10-CM Z23 WSTRN Encounter for [place] immunizationwith [facility] Provider Comments: Encounter for Immunization Diagnosis: Active Diagnosis [facility] ICD-10-CM M54.5 Low WSTRN back painwith [place] Provider Comments: H CS Low back pain ([facility] [id number]) Diagnosis: Active Diagnosis [facility] ICD-10-CM F90.8 WSTR N Attention-deficit [place] hyperactivity HCS disorder, other typewith Provider Comments: Attention deficit hyperactivity disorder, predominantly inattentive type ([facility] [phone]) Medications Combined list of outpatient medications from Department of Defense and Veterans Affairs facilities. Medications provided include 1) outpatient medications from the last 15 months, and 2) patient-reported medications. Medication Details Route Status Patient Prescription Prescription Last Ordering Order Source Instructions Expires Number Dispense Provider Date Date CYCLOBENZAP TAKE ONE ORAL 11/05/2020 [id number] Juliette REID, 10/06/ [facility] RINE HCL TABLET 1 [facility] 2020 CNTRL 10MG TAB BY MOUTH WSTRN AT [place] BEDTIME SETS HCS NEEDED MELATONIN TAKE TWO ORAL ACTIVE 09/26/2022 [id number] FRANCOISE N, 09/27/ VA 1MG CAP/TAB CAPSULE/ 2 [facility] 2021 C NTRL TABLET WSTRN BY MOUTH [place] AT SETS BEDTIME HCS NEEDED SILDENAFIL TAKE ONE ORAL DISCONT 04/28/2022 [id number] SULOBDULIO LOMAS, 04/27/ VA CITRATE TABLET INUED 2 [facility] 2021 CNTRL 100MG TAB BY MOUTH WSTRN ONCE [place] DAILY SETS NEEDED HCS TAKE 1 HOUR PRIOR TO SEXUAL ACTIVITY SILDENAFIL TAKE ONE ORAL ACTIVE 12/11/2022 [id number] SULOBDULIOV AN, 12/10/ VA CITRATE TABLET 2 [facility] 2021 CNTRL 50MG TAB BY MOUTH WSTRN ONCE [place]ILY [place] NEEDED HCS TAKE 1 HOUR PRIOR TO SEXUAL ACTIVITY SILDENAFIL TAKE ONE ORAL DISCONT 02/08/2022 [id number] SULLI VAN, 02/07/ VA CITRATE TABLET INUED 1 [facility] 2020 CNTRL 50MG TAB BY MOUTH (EDIT) WSTRN ONCE [place] DAILY SETS NEEDED HCS TAKE 1 HOUR PRIOR TO SEXUAL ACTIVITY Allergies, Adverse Reactions, Alerts Combined list of allergies from Department of Defense and Veterans Affairs facilities. It does not include entries that were removed or entered in error. Substance Category Reaction Severity Reaction Status Date Comments S ource type Reported No Known Drug Drug active [facility] Allergies allergy allergy [address] [place] [address] on Immunizations Combined list of available immunizations from the Department of Defense and Veterans Affairs facilities. Immunization Series Date Administered Site Reaction Lot CVX Drug St atus Comments Source Given By Number Code Engine Specialist COVID-19 2 complet MOD; VA (MODERNA), 2020 ed [id number]; CNTRL MUKESH, LNP-S, 02 WSTRN PF, 100 1 [place] MCG/0.5 ML SET S DOSE HCS COVID-19 1 complet MOD; [facility] (MODERNA), 2020 ed [id number]; CNTRL MRNA, LNP-S, 02 WSTRN PF, 100 1 [place] MCG/0.5 ML SET S DOSE HCS INFLUENZA, complet Site: [facility] INJECTABLE, 2019 ed Left CN TRL QUADRIVALENT, Deltoi d WSTRN PRESERVATIVE M ASSCHU FREE SETS HCS FLU,3 YRS complet P ROVIDE (HISTORICAL) 2011 ed N CE [facility] anthrax 3 04/22/ [id number] 24 (EBS) complet anthrax DoD vaccine 2011 ed vaccine FLU,3 YRS complet V A (HISTORICAL) 2010 ed C NTRL [facility]N [place] [facility] Influenza, 0 01/16/ UNK 140 MedImmune, complet I nfluenza DoD seasonal, 2010 Inc. (MED) ed , injectable, seasonal , preservative injecta bl free e, preservat carmelo free vaccinia 0 12/10/ UNK 75 (IZABELA) complet vaccinia DoD (smallpox) 2010 ed (smallpox vaccine ) vaccine DTAP, complet PROVI DE UNSPECIFIED 2010 ed NC E FORMULATION [facility] anthrax 2 11/05/ UNK 24 (EBS) complet anthrax D oD vaccine 2010 ed vaccine anthrax 1 09/25/ UNK 24 (EBS) complet anthrax D oD vaccine 2010 ed vaccine tetanus and 0 08/18/ UNK 09 Unknown (UNK) compl et tetanus DoD diphtheria 2010 ed and toxoids, diphtheri adsorbed, a preservative toxoids , free, for adsorbed, adult use (2 preserv at Lf of tetanus carmelo fr ee, toxoid and 2 for walt lt Lf of use (2 Lf diphtheria of toxoid) tetanus toxoid and 2 Lf of diphtheri a toxoid) typhoid Vi 1 07/30/ UNK 101 [facility] complet typhoid DoD capsular 2010 (WAL) ed Vi polysaccharid capsul ar e vaccine polysacch aride vaccine TD(ADULT) complet V A UNSPECIFIED 2010 ed CN TRL FORMULATION WS TRN [place] [facility] influenza 0 02/16/ UNK 111 MedImmune, complet in fluenza DoD virus 2010 Inc. (MED) ed virus vaccine, vaccine, live, live, attenuated, attenuat e for d, for intranasal intranasa use l use influenza 0 01/22/ [id number] 111 MedImmune, complet influenza DoD virus 2009 Inc. (MED) ed virus vaccine, vaccine, live, live, attenuated, attenuat e for d, for intranasal intranasa use l use influenza 0 02/04/ [id number] 111 MedImmune, complet influenza DoD virus 2008 Inc. (MED) ed virus vaccine, vaccine, live, live, attenuated, attenuat e for d, for intranasal intranasa use l use hepatitis A 3 10/30/ UNK 104 [employer] complet hepatitis DoD and hepatitis 2007 (SKB) ed A and B vaccine hepatitis B vaccine influenza 0 03/15/ UNK 111 (TRN) complet influen za DoD virus 2007 ed virus vaccine, vaccine, live, live, attenuated, attenuat e for d, for intranasal intranasa use l use measles, 0 11/13/ 0490M 03 (TRN) complet measles, DoD mumps and 2007 ed mumps and rubella virus rubell a vaccine virus vaccine poliovirus 0 11/13/ R0301 10 (TRN) complet poliov iru DoD vaccine, 2007 ed s inactivated vaccine, inactivat ed yellow fever 0 11/13/ [id number] 37 (TRN) complet ye llow DoD vaccine 2007 ed fever vaccine hepatitis A 2 11/13/ AHABB05 104 [employer] comple t hepatitis DoD and hepatitis 2007 AA (SKB) ed A and B vaccine hepatitis B vaccine tetanus and 0 10/15/ [id number] 09 (TRN) complet tet anus DoD diphtheria 2007 ed and toxoids, diphtheri adsorbed, a preservative toxoids , free, for adsorbed, adult use (2 preserv at Lf of tetanus carmelo fr ee, toxoid and 2 for walt lt Lf of use (2 Lf diphtheria of toxoid) tetanus toxoid and 2 Lf of diphtheri a toxoid) hepatitis A 1 10/15/ AHABB05 104 [employer] comple t hepatitis DoD and hepatitis 2007 5AA (SKB) ed A and B vaccine hepatitis B vaccine meningococcal 0 10/15/ [id number] 114 (TRN) complet m eningoco DoD polysaccharid 2007 ed ccal e (groups A, polysac ch C, Y and aride W-135) (groups diphtheria A, C, Y toxoid and conjugate W-135) vaccine diphtheri (MCV4P) a toxoid conjugate vaccine (MCV4P) DTAP, complet VA UNSPECIFIED 2006 ed CN TRL FORMULATION WS TRN [place] HCS Results Combined list of recent chemistry, hematology and other laboratory results from Department of Defense and Veterans Affairs, ranging from 15 months to all on record, depending upon the facility. Order Results Value Reference Date Interpretation Specimen Commen ts Source Name Range COVID-19 SARS-COV-2 N 03/26 Specimen Typ e: NASOPHARYNX [facility] CNTR SCREENING (COVID-19) /2020 Comment: T est performed on [employer] Genexpert at [facility]. This test is authorized for emergency use only. It is authorized for the duration of the declaration that circumstances exist just WSTRN PANEL RNA ifying the autho rization for detection and/or diagnosis of COVID- 19. Unless the authorization is terminated or revoked sooner. This test cannot rule out diseases caused by other bacterial or viral patho [place] (CEPHEID) [PRESENCE] gens. False negative results may occur if virus is present at levels below the analytical limit of detection. Negative results do not preclude SARS-CoV-2, infection and should not be used as the sole ba TS HCS IN sis for treatmen t or other patient management decisions. Viral nucleic acid may persist in vivo, independent of virus viability. Detection of analyte target(s) does not imply that the corresponding viru RESPIRATORY s(es) are in fectious or are the causative agents for clinical symptoms. Cepheid FLUVID: HCPs: https://www.fda.gov/media/019376/download Patients: https://www.fda.gov/media/565098/download SPECIMEN BY Ordering Pr ovider: EMORY SAMANIEGO KAT WITH Report Release d Date/Time: Mar 25, 2021 05:11 PM PROBE Reporting Lab: [facility] [place] [facility] DETECTION [address] [facility] [address] Performing Lab: [facility] [place] [facility] [address] [facility] [address] TESTOSTER TESTOSTERON 374.54 220.00 - 08/21 Specimen Type: SERUM [facility] CN[facility] ONE, E 892.00 /2020 No comment enter ed. WSTRN TOTAL [MASS/VOLUM Ordering Pr ovider: GEORGE LUQUE] IN SERUM Report Rele ased Date/Time: August 03, 2020 02:35 PM TS HCS OR PLASMA Reporting [facility] : [facility] [place] [facility] [address] [facility] [address] Performing Lab: [facility] [place] [facility] [address] [facility] [address] VITAMIN COBALAMIN 232 200 - 900 08/21 Specimen Typ e: [facility] B12 (VITAMIN /2020 No comment ente red. WSTRN B12) Ordering Provid er: GEORGE LUQUE [MASS/VOLUM Report Rele ased Date/Time: August 03, 2020 02:35 PM TS HCS E] IN SERUM Reporting L ab: [facility] [place] [facility] OR PLASMA [address] [facility] [address] Per[facility]: [facility] [address] [facility] [address] VITAMIN D 25-HYDROXYV 16 20 - 50 08/21 L Specimen T ype: SERUM [facility] (25-[place]) ITAMIN D3 /2020 No comment ent ered. WSTRN [MASS/VOLUM Ordering Pr ovider: GEORGE LUQUE] IN SERUM Report Rele ased Date/Time: August 03, 2020 02:35 PM TS HCS OR PLASMA Reporting Lab : [facility] [place] [facility] [address] [facility] [address] Performing Lab: [facility] [place] [facility] [address] [facility] [address] HEMOGLOBI HEMOGLOBIN 5.3 4.0 - 5.6 08/21 Specimen Type: BLOOD [facility] CNTRL N A1C A1C/HEMOGLO /2020 Comment: Te sting performed by NGSP certified [employer] with CV <2%. The [employer] HgA1C assay should not be used to diagnose or monitor diabetes in patients with altered red cell lifespan cardenas WSTRN PANEL BIN.TOTAL ch as homozygo us hemoglobin variants, Hb SC, HbF>5% and hemolytic anemia. Heterozygous variants do not affect this assay, HbAS, HbAC, HbAD, HbAE, AbA2 [place] IN BLOOD BY Ordering Pr ovider: GEORGE LUQUE TS HCS HPLC Report Released Date/Time: August 03, 2020 02:35 PM Reporting Lab: [facility] [place] [facility] [address] [facility] [address] Performing Lab: [facility] [place] [facility] [address] [facility] [address] TSH THYROTROPIN 2.42 0.35 - 05 Specimen Typ e: SERUM [facility] [UNITS/VOLU 5.00 No comment e ntered. WSTRN ME] IN Ordering Provid er: GEORGE LUQUE SERUM OR Report Release d Date/Time: August 03, 2020 02:35 PM TS HCS PLASMA Reporting Lab: [facility] [place] [facility] [address] [facility] [address] Performing Lab: [facility] [place] [facility] [address] [facility] [address] CBC LEUKOCYTES 5.58 4.50 - 05 Specimen Type : BLOOD [facility] CN[facility] [#/VOLUME] 11. No comment en tered. WSTRN IN BLOOD BY Ordering Pr ovider: GEORGE LUQUE [place] AUTOMATED Report Releas ed Date/Time: August 03, 2020 02:35 PM TS HCS COUNT Reporting Lab: [facility] [place] [facility] [address] [facility] [address] Performing Lab: [facility] [place] [facility] [address] [facility] [address] CBC ERYTHROCYTE 4.53 4.23 - 05/ Specimen Typ e: BLOOD [facility] CN[facility] S 5.66 No comment enter ed. WSTRN [#/VOLUME] Ordering Pro vider: GEORGE LUQUECHUSE IN BLOOD BY Report Rele ased Date/Time: August 03, 2020 02:35 PM TS HCS AUTOMATED Reporting Lab : [facility] [place] [facility] COUNT [address] [facility] [address] Performing Lab: [facility] [place] [facility] [address] [facility] [address] CBC HEMOGLOBIN 14.3 12.8 - 17 08/21 Specimen Ty pe: BLOOD [facility] [MASS/VOLUM /2020 No comment e ntered. WSTRN E] IN BLOOD Ordering Pr ovider: GEORGE LUQUE Report Released Date/Time: August 03, 2020 02:35 PM TS HCS Reporting Lab: [facility] [place] [facility] [address] [facility] [address] Performing Lab: [facility] [place] [facility] [address] [facility] [address] CBC HEMATOCRIT 43.5 39.2 - 08/21 Specimen Type : BLOOD [facility] [VOLUME 50.4 No comment enter ed. WSTRN FRACTION] Ordering Prov ider: GEORGE LUQUE OF BLOOD BY Report Rele ased Date/Time: August 03, 2020 02:35 PM TS HCS AUTOMATED Reporting Lab : [facility] [place] [facility] COUNT [address] [facility] [address] Performing Lab: [facility] [place] [facility] [address] [facility] [address] CBC MCV 96.0 82 - 99 08/21 Specimen Type: B LOOD [facility] [ENTITIC No comment ente red. WSTRN VOLUME] BY Ordering Pro vider: GEORGE LUQUE AUTOMATED Report Releas ed Date/Time: August 03, 2020 02:35 PM TS HCS COUNT Reporting Lab: [facility] [place] [facility] [address] [facility] [address] Performing Lab: [facility] [place] [facility] [address] [facility] [address] CBC MCHC 32.9 30.8 - 08/21 Specimen Type: B LOOD [facility] [MASS/VOLUM 35.1 No comment e ntered. WSTRN E] BY Ordering Provid er: GEORGE LUQUE AUTOMATED Report Releas ed Date/Time: August 03, 2020 02:35 PM TS HCS COUNT Reporting Lab: [facility] [place] [facility] [address] [facility] [address] Performing Lab: [facility] [place] [facility] [address] [facility] [address] CBC PLATELETS 239 140 - 360 05 Specimen Typ e: BLOOD [facility] [#/VOLUME] /2020 No comment en tered. WSTRN IN BLOOD BY Ordering Pr ovider: GEORGE LUQUE AUTOMATED Report Releas ed Date/Time: August 03, 2020 02:35 PM TS HCS COUNT Reporting Lab: [facility] [place] [facility] [address] [facility] [address] Performing Lab: [facility] [place] [facility] [address] [facility] [address] CBC ERYTHROCYTE 12.8 12.0 - 08/21 Specimen Typ e: BLOOD [facility] DISTRIBUTIO 16.0 No comment e ntered. WSTRN N WIDTH Ordering Provid er: GEORGE LUQUE [RATIO] BY Report Relea sed Date/Time: August 03, 2020 02:35 PM TS HCS AUTOMATED Reporting Lab : [facility] [place] [facility] COUNT [address] [facility] [address] Performing Lab: [facility] [place] [facility] [address] [facility] [address] CBC MCH 31.6 26.2 - 08/21 Specimen Type: B LOOD [facility] [ENTITIC 32.6 /2020 No comment ente red. WSTRN MASS] BY Ordering Provi saroj: GEORGE LUQUE AUTOMATED Report Releas ed Date/Time: August 03, 2020 02:35 PM TS HCS COUNT Reporting Lab: [facility] [place] [facility] [address] [facility] [address] Performing Lab: [facility] [place] [facility] [address] [facility] [address] LDL CHOLESTEROL 151 0 - 129 05/24 H Specimen Typ e: SERUM [facility] DIRECT IN LDL /2020 No comment enter ed. WSTRN [MASS/VOLUM Ordering Pr ovider: GEORGE LUQUE E] IN SERUM Report Rele ased Date/Time: August 03, 2020 02:35 PM TS HCS OR PLASMA Reporting Lab : [facility] BY DIRECT [address] [facility] [address] ASSAY Performing Lab: [facility] [address] [facility] [address] LIVER PROTEIN 8.3 6.0 - 8.3 05 Specimen Type: SERUM [facility] FUNCTION [MASS/VOLUM /2020 No comment entered. WSTRN E] IN SERUM Ordering Pr ovider: GEORGE LUQUECHUSE OR PLASMA Report Releas ed Date/Time: August 03, 2020 02:35 PM TS HCS Reporting Lab: [facility] [address] [facility] [address] Performing Lab: [facility] [address] LIVER ALBUMIN 4.3 3.5 - 5.0 08/21 Specimen Type: SERUM [facility] FUNCTION [MASS/VOLUM No comment entered. WSTRN E] IN SERUM Ordering Pr ovider: GEORGE LUQUECHUSE OR PLASMA Report Releas ed Date/Time: August 03, 2020 02:35 PM TS HCS Reporting Lab: [facility] [address] Performing Lab: [facility] [address] [address] LIVER ALKALINE 46 40 - 150 05 Specimen Type: SERUM [facility] FUNCTION PHOSPHATASE No comment entered. WSTRN [ENZYMATIC Ordering Pro vider: GEORGE LUQUE ACTIVITY/VO Report Rele ased Date/Time: August 03, 2020 02:35 PM TS [facility] LUME] IN Reporting Lab: [facility] WSTR[facility] SERUM OR [address] [place] [address] PLASMA Performing Lab: [facility] [address] LIVER ASPARTATE 29 5 - 34 05 Specimen Type: SERUM [facility] FUNCTION AMINOTRANSF /2020 No comment entered. WSTRN ERASE Ordering Provid er: GEORGE LUQUE [ENZYMATIC Report Relea sed Date/Time: August 03, 2020 02:35 PM TS HCS ACTIVITY/VO Reporting L ab: [facility] [place] [facility] LUME] IN [address] [facility] [address] SERUM OR Performing Lab : [facility] [place] [facility] PLASMA [address] [facility] [address] LIVER ALANINE 40 0 - 55 08/21 Specimen Type: S HILARY [facility] FUNCTION AMINOTRANSF /2020 No comment entered. WSTRN ERASE Ordering Provid er: GEORGE LUQUE [ENZYMATIC Report Relea sed Date/Time: August 03, 2020 02:35 PM TS HCS ACTIVITY/VO Reporting L ab: [facility] [place] [facility] LUME] IN [address] [facility] [address] SERUM OR Performing Lab : [facility] [place] [facility] PLASMA [address] [facility] [address] LIVER BILIRUBIN.T 0.5 0.2 - 1.2 08/21 Specimen T ype: SERUM [facility] FUNCTION OTAL /2020 No comment ente red. WSTRN [MASS/VOLUM Ordering Pr ovider: GEORGE LUQUE E] IN SERUM Report Rele ased Date/Time: August 03, 2020 02:35 PM TS HCS OR PLASMA Reporting Lab : [facility] [place] [facility] [address] [facility] [address] Performing Lab: [facility] [place] [facility] [address] [facility] [address] BASIC UREA 12 7 - 25 08/21 Specimen Type: S HILARY [facility] METABOLIC NITROGEN /2020 No comment en tered. WSTRN PANEL [MASS/VOLUM Ordering Pr ovider: GEORGE LUQUE (non-fast E] IN SERUM Report Re leased Date/Time: August 03, 2020 02:35 PM TS HCS ing) OR PLASMA Reporting Lab : [facility] [place] [facility] [facility] [address] [facility] [address] Performing Lab: [facility] [place] [facility] [address] [facility] [address] BASIC GLUCOSE 99 65 - 100 08/21 Specimen Type: SERUM [facility] METABOLIC [MASS/VOLUM /2020 No comment entered. WSTRN PANEL E] IN SERUM Ordering Pr ovider: GEORGE LUQUE (non-fast OR PLASMA Report Rele ased Date/Time: August 03, 2020 02:35 PM TS HCS ing) Reporting Lab: [facility] [address] [facility] [address] Performing Lab: [facility] [address] [facility] [address] BASIC SODIUM 141 135 - 145 08/21 Specimen Type: SERUM [facility] METABOLIC [MOLES/VOLU /2020 No comment entered. WSTRN PANEL ME] IN Ordering Provid er: GEORGE LUQUE (non-fast SERUM OR Report Relea sed Date/Time: August 03, 2020 02:35 PM TS HCS ing) PLASMA Reporting Lab: [facility] [address] [address] Performing Lab: [facility] [address] [address] BASIC POTASSIUM 4.8 3.5 - 5.0 08/21 Specimen Typ e: SERUM [facility] METABOLIC [MOLES/VOLU No comment entered. WSTRN PANEL ME] IN Ordering Provid er: GEORGE LUQUE (non-fast SERUM OR Report Relea sed Date/Time: August 03, 2020 02:35 PM TS HCS ing) PLASMA Reporting Lab: [facility] TRN [facility] [address] [facility] [address] Performing Lab: [facility] [address] [address] BASIC CHLORIDE 105 100 - 110 08/21 Specimen Type : SERUM [facility] METABOLIC [MOLES/VOLU No comment entered. WSTRN PANEL ME] IN Ordering Provid er: GEORGE LUQUE (non-fast SERUM OR Report Relea sed Date/Time: August 03, 2020 02:35 PM TS HCS ing) PLASMA Reporting Lab: [facility] [place] [address] [place] [address] Performing Lab: [facility] [place] [facility] [address] [facility] [address] BASIC CARBON 27 20 - 30 05/ Specimen Type: S HILARY [facility] METABOLIC DIOXIDE, /2020 No comment en tered. WSTRN PANEL TOTAL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
--- OUTSIDE RECORDS SUMMARY | 2021-12-31 15:56 | XMS_ITS | Encounter Summary ---
:1990 Author Organization Department [facility] rs Address [address] [place] [id number] Support Name Relationship Address Phone RESHMA BARROW Unavailable [address] [place] [address] RESHMA BARROW Unavailable [address] [place] [address] Selected Encounter This section includes the information on record at [place] for the Encounter. Date/Time Encounter Type Encounter Description Reason Provider Source August 24, 2021 11:53 Outpatient Encounter PRIMARY CARE/MEDICINE AM E Encounter Template Text not used by [place] Plan of Treatment: Future Appointments (+ 6 months) and Future Tests (+/- 45 days) The Plan of Treatment section includes future care activities for the patient from all [place] treatmentfacilities. This section includes future appointments and future orders which are active, pending orscheduled.Future Appointments This section includes appointments that were scheduled to occur 6 months from the date of the Encounter, up to a maximum of 20 appointments. The data comes from all [place] treatment facilities. Appointment Date/Time Appointment Type Appointment Facili ty Name August 28, 2021 11:00 AM AMBULATORY - REHAB MEDICINE [facility] Sep 13, 2021 10:00 AM [facility] [place] [facility] Sep 21, 2021 08:00 AM [facility] Nov 16, 2021 09:30 AM AMBULATORY MEDICINE [facility] Active, Pending, and Scheduled Orders This section includes a listing of several types of active, pending, and scheduled orders, including clinic medications orders, diagnostic test orders, procedure orders and consult orders; where the start date of the order is 45 days before the date of the Encounter or 45 days after the date of the Encounter. The data comes from all [place] treatment facilities. Test Date/Time Test Type Test Details Facility Name Oct 02, 2021 12:32 PM Consult Order MENTAL HEALTH/[facility] OUTPT [facility] [place] Cons [facility] Choice Social History: Smoking Status (Most current) and Tobacco Use (All prior to encounter date) This section includes the most current, and the historical, smoking and tobacco-related health factors from the [place] facility where the Encounter took place.Current Smoking Status This section includes the most current smoking, or tobacco-related health factor, from the [place] facility where the Encounter took place. Date/Time Current Smoking Status Comment Facility August 10, 2021 08:15 AM VA-TOBACCO FOR[facility] USER [place] [facility] Tobacco Use History This section includes a history of the smoking, or tobacco- related health factors, that were collected on or before the date of the Encounter. The data comes from the [place] facility where the Encounter took place. 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 [facility] [place] [facility] August 03, 2020 02:00 PM VA-TOBACCO USE MED NO [facility] [place] [facility] August 03, 2020 02:00 PM VA-TOBACCO USE WI 30 MIN V A CN[facility] OF WAKEUP [place] [facility] August 03, 2020 02:00 PM VA-TOBACCO USER EVERY DAY [facility] [place] [facility] August 10, 2019 01:26 PM VA-TOBACCO NEVER USED [facility] [place] [facility] Jul 15, 2018 03:43 PM VA-TOBACCO FORMER USER [facility] [place] [facility] Jul 15, 2018 03:43 PM VA-TOBACCO QUIT 1 TO < 5 [facility] August 22, 2017 03:08 PM QUIT TOBACCO USE 1-7 VA CN TRL [facility] YEARS AGO [facility] August 22, 2017 03:08 PM V1-QUIT TOBACCO USE > 1 [facility] Dec 31, 2016 01:45 PM QUIT TOBACCO USE IN PAST V A CN[facility]L W[facility] YEAR quit 11/21/16 [facility] Nov 20, 2016 08:15 PM TOBACCO INPATIENT [facility]ES [facility] Jun 26, 2016 07:05 AM CURRENT SMOKER [facility] Jun 26, 2016 07:05 AM V1-PT NOT INTERESTED IN [facility] QUIT [facility]BACCO USE [facility] Feb 28, 2014 01:16 PM CURRENT SMOKER VA [facility] < 1 PP week [facility] Feb 28, 2014 01:16 PM V1-PT DECLINES REF TO [facility] C [facility] TOBACCO CESS [facility] Feb 28, 2014 01:16 PM V1-PT DECLINES TOBACCO [facility] CESSATION MEDS [facility] Feb 28, 2014 01:16 PM V1-PT NOT INTERESTED IN [facility] QUIT TOBACCO USE [facility] August 17, 2013 09:43 AM V1-PT DECLINES REF TO [facility] C [facility] TOBACCO CESS [facility] August 17, 2013 09:43 AM V1-PT DECLINES TOBACCO [facility] CESSATION MEDS [facility] August 17, 2013 09:43 AM V1-PT THINKING ABOUT QUIT [facility]ACCO [facility] Jan 28, 2013 09:57 AM CURRENT SMOKER [facility] Jan 28, 2013 09:57 AM V1-PT DECLINES REF TO [facility] TOBACCO CESS [facility] Jan 28, 2013 09:57 AM V1-PT DECLINES TOBACCO [facility] CESSATION MEDS [facility] Jan 28, 2013 09:57 AM V1-PT NOT INTERESTED IN [facility] QUIT TOBACCO USE [facility] Oct 18, 2011 02:45 PM QUIT TOBACCO USE IN PAST V A CNTRL WSTRN YEAR [facility] Oct 18, 2011 12:56 PM CURRENT SMOKER [place] CNTR[facility] [place] STR[facility] half pack a week [facility] Radiology Reports: +/- 30 days of the encounter Radiology Reports For cases when an order for radiology services may have been completed prior to the date of the Encounter, the report list includes the Radiology Reports that were completed up to 30 days before date of the Encounter. For cases when an order for radiology services may have been completed after the date of the Encounter, the report list also includes the Radiology Reports that were completed up to 30days after date of the Encounter. The data comes from all [place] treatment facilities. Date/Time Radiology Report Provider Source August 10, 2021 09:38 AM HAND 3 OR MORE VIEWS(LEFT): EMMANUELLE BATRES [place] [facility] DRAGAN BARROW [phone] [phone] M [facility] Exm Date: AUGUST 10, 2021@09:38 Req Phys: ANGIE REID Pat Loc: CWM/NO/SICK C DIOMEDES KUO (Req'g Loc Img Loc: NHM/BUILDING 1 Service: Unknown (Case [id number] COMPLETE) HAND 3 OR MORE VIEWS(LEFT) ( RAD Detailed) CPT:08808 Proc Modifiers : LEFT CPT Modifiers : LT LEFT SIDE Reason for Study: L hand pain Clinical History: Report Status: Verified Date Reported: AUGUST 10, 2021 Date Verified: AUGUST 10, 2021 Diamond Die Polisher E-Sig:/ES/Emmanuelle Batres MD Report: EXAM: Left HAND, 3 VIEWS HISTORY: pain COMPARISON: None Impression: FINDINGS AND IMPRESSION: No acute fracture or dislocation. No significan t arthritic or degenerative changes. No focal soft tissue abno rmality. Primary Diagnostic Code: No immediate attention required Primary Interpreting Staff: Emmanuelle Batres MD, Chief of Imaging (Diamond Die Polisher ) /[facility] Encounter Notes: All associated encounter notes This section contains the clinical notes associated to the Encounter. Date/Time Encounter Note(s) Provider Source August 24, 2021 11:53 AM PRIMARY CARE NOTE: LILIYA DEVRIES [place] C [facility] LOCAL TITLE: WALK-IN NOTE PRIMARY CARE (T) [facility] STANDARD TITLE: PRIMARY CARE NOTE DATE OF NOTE: AUGUST 24, 2021@11:53 ENTRY DATE: AUGUST 24, 2021@11:53:26 AUTHOR: LILIYA DEVRIES EXP COSIGNER: URGENCY: STATUS: COMPLETED WALK-IN NOTE PRIMARY CARE (T) Has ADDENDA * <====Click to Start Advanced Medical Support [place] presents to the Primary Care clinic with the following request: [ ]Medication Renewal/Refill [ ]Consultation with Team RN [ ]Symptoms [ X ]Other requesting new hand brace for right h and The [place] states they are: [ ]Waiting [ X ]Not Waiting No Walk in visit scheduled with PACT Nurse [ X ] At this encounter the [place]'s demographi cs were verified. [ X ] At this encounter the 's Insurance information was verified. [ X ] At this encounter the below scheduled visi ts for the [place] were discussed and appointment reminder card wa s offered. Future appointments: 08/28/2021 11:00 CWM/NO/OCC UPATIONAL THERA 11/16/2021 09:30 CWM/NO/PACT 7 would like get a new brace for right juan d today if at all possible. Please call to discuss; [phone]. /martita/ LILIYA DEVRIES ADVANCED NATURAL GAS TECHNICIAN Signed: 08/24/2021 11:54 Receipt Acknowledged By: 08/24/2021 13:10 /martita/ HARRISON HUANG RN REGISTERED NURSE * AWAITING SIGNATURE * GEORGE LUQUE 08/24/2021 ADDENDUM STATUS: COMPLETED Spoke to who said his current on e that was issued on 06/28/2021 is very worn out and he would like replacement, prosthet ic request entered. /martita/ HARRISON HUANG RN REGISTERED NURSE Signed: 08/24/2021 13:10
--- OUTSIDE RECORDS SUMMARY | 2021-12-31 15:56 | XMS_ITS | Encounter Summary ---
:1990 Author Organization Department [facility] rs Address [address] [place] [id number] Support Name Relationship Address Phone RESHMA ROUSE Unavailable [address] [place] [address] RESHMA ROUSE Unavailable [address] [place] [address] Selected Encounter This section includes the information on record at [place] for the Encounter. Date/Time Encounter Type Encounter Reason Provider Source Description Dec 10, 2021 12:35 Outpatient PRIMARY PREET WHELAN PM Encounter CARE/MEDICINE A IHE Encounter Template Text not used by [place] Plan of Treatment: Future Appointments (+ 6 months) and Future Tests (+/- 45 days) The Plan of Treatment section includes future care activities for the patient from all [place] treatmentfacilities. This section includes future appointments and future orders which are active, pending orscheduled.Active, Pending, and Scheduled Orders This section includes a listing of several types of active, pending, and scheduled orders, including clinic medications orders, diagnostic test orders, procedure orders and consult orders; where the start date of the order is 45 days before the date of the Encounter or 45 days after the date of the Encounter. The data comes from all [place] treatment facilities. Test Date/Time Test Type Test Details Facility Name Nov 02, 2021 12:00 AM Laboratory - CBC BLOOD (LAV-BLOOD) [place] C [facility] Chemistry Order [facility] Nov 02, 2021 12:00 AM Laboratory - LIVER FUNCTION BLOOD CO CN T[facility] Chemistry Order (SST-SERUM) [facility] Nov 02, 2021 12:00 AM Laboratory - LIPID PANEL FASTING CO CNT RL [facility] Chemistry Order BLOOD (SST-SERUM) [facility] Nov 02, 2021 12:00 AM Laboratory - BASIC METABOLIC PANEL CO C [facility] Chemistry Order (fasting) BLOOD [facility] (SST-SERUM) Nov 02, 2021 12:00 AM Laboratory - THYROID T4 FREE(FT4) [facility] TRL WSTRN Chemistry Order BLOOD (SST-SERUM) [facility] Nov 02, 2021 12:00 AM Laboratory - TSH BLOOD (SST-SERUM) [facility] NTRL WSTRN Chemistry Order [facility] Nov 02, 2021 12:00 AM Laboratory - HEMOGLOBIN A1C PANEL [facility] TRL WSTRN Chemistry Order BLOOD (LAV-BLOOD) [facility] Social History: Smoking Status (Most current) and Tobacco Use (All prior to encounter date) This section includes the most current, and the historical, smoking and tobacco-related health factors from the [place] facility where the Encounter took place.Current Smoking Status This section includes the most current smoking, or tobacco-related health factor, from the [place] facility where the Encounter took place. Date/Time Current Smoking Status Comment Facility August 10, 2021 08:15 AM VA-TOBACCO FORMER USER [place] [facility] Tobacco Use History This section includes a history of the smoking, or tobacco- related health factors, that were collected on or before the date of the Encounter. The data comes from the [place] facility where the Encounter took place. 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 [facility] [place] [facility] August 03, 2020 02:00 PM VA-TOBACCO USE MED NO [facility] [place] [facility] August 03, 2020 02:00 PM VA-TOBACCO USE WI 30 MIN V A CN[facility] W[facility] OF [place] [facility] August 03, 2020 02:00 PM VA-TOBACCO USER EVERY DAY [facility] [place] [facility] August 10, 2019 01:26 PM VA-TOBACCO NEVER USED VA C [facility] [place] [facility] Jul 15, 2018 03:43 PM VA-TOBACCO FORMER USER [facility] [place] [facility] Jul 15, 2018 03:43 PM VA-TOBACCO QUIT 1 TO < 5 V [facility] Y[facility] August 22, 2017 03:08 PM QUIT TOBACCO USE 1-7 VA CN TRL [place] YEARS AGO [place] [facility] August 22, 2017 03:08 PM V1-QUIT TOBACCO USE > 1 VA [facility] YE[place] A[place] [facility] Dec 31, 2016 01:45 PM QUIT TOBACCO USE IN PAST V A CNTRL W[facility] YEAR quit 11/21/16 [facility] Nov 20, 2016 08:15 PM TOBACCO INPATIENT [facility] Jun 26, 2016 07:05 AM CURRENT SMOKER [facility] [place] [facility] Jun 26, 2016 07:05 AM V1-PT NOT INTERESTED IN [facility] QUIT TOBACCO USE [facility] Feb 28, 2014 01:16 PM CURRENT SMOKER [facility] < 1 PP week [facility] Feb 28, 2014 01:16 PM V1-PT DECLINES REF TO VA C [facility] Feb 28, 2014 01:16 PM V1-PT DECLINES TOBACCO [facility] CESSATION MEDS [facility] Feb 28, 2014 01:16 PM V1-PT NOT INTERESTED IN [facility] QUIT TOBACCO USE [place] [facility] August 17, 2013 09:43 AM V1-PT DECLINES REF TO VA C N[facility]L [facility] TOBACCO CESS [facility] August 17, 2013 09:43 AM V1-PT DECLINES TOBACCO [facility] CESSATION MED[facility] August 17, 2013 09:43 AM V1-PT THINKING ABOUT QUIT [facility] TOBACCO USE [facility] Jan 28, 2013 09:57 AM CURRENT SMOKER [facility] [place] [facility] Jan 28, 2013 09:57 AM V1-PT DECLINES REF TO VA C N[facility]L [facility] TOBACCO CESS [facility] [place] [facility] Jan 28, 2013 09:57 AM V1-PT DECLINES TOBACCO [facility] WSTRN CESSATION MEDS [facility] Jan 28, 2013 09:57 AM V1-PT NOT INTERESTED IN CO CNTRL [facility] QUIT TOBACCO USE [facility] Oct 18, 2011 02:45 PM QUIT TOBACCO USE IN PAST V A CNTRL WSTRN YEAR [facility] Oct 18, 2011 12:56 PM CURRENT SMOKER CO CNTR W STRN half pack a week [facility] Encounter Notes: All associated encounter notes This section contains the clinical notes associated to the Encounter. Date/Time Encounter Note(s) Provider Source Dec 10, 2021 12:35 PM PRIMARY CARE SECURE MESSAGING: Perez WHELAN [facility] WSTRN LOCAL TITLE: PRIMARY CARE SECURE MESSAGING [facility] STANDARD TITLE: PRIMARY CARE SECURE MESSAGING DATE OF NOTE: DEC 10, 2021@12:35 ENTRY DATE: DEC 10, 2021@13:35:24 AUTHOR: CHIQUIS WHELAN EXP COSIGNER: URGENCY: STATUS: COMPLETED PRIMARY CARE SECURE MESSAGING Has ADDENDA * ------Original Message Sent: 12/10/2021 12:47 PM ET From: DRAGAN ROUSE To: Valeria MOCTEZUMA_PRIMARY CARE_[facility] Subject: General:Viagra Good afternoon, I wanted to know if I can reques t 50-mg dose of Viagra or the VA equivalent to Viagra. If I could get ten for now and let you know if it helps me that would be great. Thank you. ------Original Message Sent: 12/10/2021 01:35 PM ET From: CHIQUIS WHELAN To: DRAGAN ROUSE Subject: General:Viagra Good Afternoon Mr. Rouse, I will alert RAUL Moctezuma to your request for renewal at the 50mg dose for mail delivery. I looks like you missed your l ast visit with RAUL Moctezuma on 11/16/21. I will have our [facility] reach out to you to resche dule. We have also ordered fasting labs to be done prior to the visit. Respectfully, Chiquis Whelan RN /es/ Chiquis Whelan MSN RN CNL Primary Care RN Signed: 12/10/2021 13:35 Receipt Acknowledged By: 12/10/2021 13:56 /martita/ IVELISSE BOWMAN Advanced Draw Frame Runner * AWAITING SIGNATURE * GEORGE MOCTEZUMA 12/10/2021 ADDENDUM STATUS: COMPLETED MSA left message to call back to r/s appt. /martita/ IVELISSE BOWMAN Advanced Draw Frame Runner Signed: 12/10/2021 13:56
--- OUTSIDE RECORDS SUMMARY | 2021-12-31 15:56 | XMS_ITS ---
:1990 Author Organization Department [facility] rs Address [address] [place] [id number] Support Name Relationship Address Phone RESHMA ROUSE Unavailable [address] [place] [address] RESHMA ROUSE Unavailable [address] [place] [address] Selected Encounter This section includes the information on record at [place] for the Encounter. Date/Time Encounter Type Encounter Reason Provider Source Description Oct 02, 2021 10:31 Outpatient PRIMARY PREET WHELAN AM Encounter CARE/MEDICINE A IHE Encounter Template Text not used by [place] Plan of Treatment: Future Appointments (+ 6 months) and Future Tests (+/- 45 days) The Plan of Treatment section includes future care activities for the patient from all [place] treatmentfacilities. This section includes future appointments and future orders which are active, pending orscheduled.Future Appointments This section includes appointments that were scheduled to occur 6 months from the date of the Encounter, up to a maximum of 20 appointments. The data comes from all [place] treatment facilities. Appointment Date/Time Appointment Type Appointment Facili ty Name Nov 16, 2021 09:30 AM AMBULATORY - MEDICINE [facility] [place] [facility] Active, Pending, and Scheduled Orders This section includes a listing of several types of active, pending, and scheduled orders, including clinic medications orders, diagnostic test orders, procedure orders and consult orders; where the start date of the order is 45 days before the date of the Encounter or 45 days after the date of the Encounter. The data comes from all [place] treatment facilities. Test Date/Time Test Type Test Details Facility Name Oct 02, 2021 12:32 PM Consult Order MENTAL HEALTH/NHM [facility] WSN OUTPT Cons [place] [facility] Insurance Broker's Choice Nov 02, 2021 12:00 AM Laboratory - CBC BLOOD (LAV-BLOOD) [place] C NTRL WSTRN Chemistry Order [facility] Nov 02, 2021 12:00 AM Laboratory - LIPID PANEL FASTING [place] CNT RL WSTRN Chemistry Order BLOOD (SST-SERUM) [facility] Nov 02, 2021 12:00 AM Laboratory - LIVER FUNCTION BLOOD [place] CN TRL WSTRN Chemistry Order (SST-SERUM) [facility] Nov 02, 2021 12:00 AM Laboratory - HEMOGLOBIN A1C PANEL [place] CN TRL WSTR[place] Chemistry Order BLOOD (LAV-BLOOD) [facility] Nov 02, 2021 12:00 AM Laboratory - BASIC METABOLIC PANEL [place] C NTRL WSTR[place] Chemistry [facility] (SST-SERUM) Nov 02, 2021 12:00 AM Laboratory - THYROID T4 FREE(FT4) [place] CN TRL WSTRN Chemistry Order BLOOD (SST-SERUM) [facility] Nov 02, 2021 12:00 AM Laboratory - TSH BLOOD (SST-SERUM) [facility] NTRL WSTRN Chemistry Order [facility] Social History: Smoking Status (Most current) and Tobacco Use (All prior to encounter date) This section includes the most current, and the historical, smoking and tobacco-related health factors from the [place] facility where the Encounter took place.Current Smoking Status This section includes the most current smoking, or tobacco-related health factor, from the [place] facility where the Encounter took place. Date/Time Current Smoking Status Comment Facility August 10, 2021 08:15 AM VA-TOBACCO [facility] Tobacco Use History This section includes a history of the smoking, or tobacco- related health factors, that were collected on or before the date of the Encounter. The data comes from the [place] facility where the Encounter took place. 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 CNTRL [place]STRN [place] [facility] August 03, 2020 02:00 PM VA-TOBACCO USE MED NO VA C NTRL W[place] [facility] August 03, 2020 02:00 PM VA-TOBACCO USE WI 30 MIN V A CNTRL WSTRN OF WAKEUP [facility] August 03, 2020 02:00 PM VA-TOBACCO USER EVERY DAY VA CNTRL [place]N [place] [facility] August 10, 2019 01:26 PM VA-TOBACCO NEVER USED [facility] C [facility] Jul 15, 2018 03:43 PM [facility]AC[facility] Jul 15, 2018 03:43 PM VA-TOBACCO QUIT 1 TO < 5 V A CNTRL [facility]STRN Y[facility] August 22, 2017 03:08 PM QUIT TOBACCO USE 1-7 VA CN TRL WSTRN YEARS AGO [facility] August 22, 2017 03:08 PM V1-QUIT TOBACCO USE > 1 [facility] CNTRL [facility] Dec 31, 2016 01:45 PM QUIT TOBACCO USE IN PAST V A CNTRL WSTRN YEAR quit 11/21/16 [facility] Nov 20, 2016 08:15 PM TOBACCO INPATIENT VA CNTRL WSTRN [facility]CLINES MED[facility] Jun 26, 2016 07:05 AM CURRENT SMOKER [facility] Jun 26, 2016 07:05 AM V1-PT NOT INTERESTED IN VA CNTRL WSTRN QUIT [facility]BACCO USE [facility] Feb 28, 2014 01:16 PM CURRENT SMOKER VA CNTRL W STRN < 1 PP week [facility] Feb 28, 2014 01:16 PM V1-PT DECLINES REF TO VA C NTRL WSTRN TOBACCO CESS [facility] Feb 28, 2014 01:16 PM V1-PT DECLINES TOBACCO VA CNTRL WSTRN CESSATION [facility]S [facility] Feb 28, 2014 01:16 PM V1-PT NOT INTERESTED IN VA CNTRL WSTRN QUIT [facility]BACCO USE [facility] August 17, 2013 09:43 AM V1-PT DECLINES REF TO VA C NTRL WSTRN [facility]BACCO CESS [facility] August 17, 2013 09:43 AM V1-PT DECLINES TOBACCO [facility] CNTRL [facility]ATION [facility] August 17, 2013 09:43 AM V1-PT THINKING ABOUT QUIT VA CNTRL WSTRN TOBACCO USE [place] [facility] Jan 28, 2013 09:57 AM CURRENT SMOKER VA CNTRL W STRN [place] [facility] Jan 28, 2013 09:57 AM V1-PT DECLINES REF TO VA C NTRL WSTR[facility]BACCO [facility]ESS [facility] Jan 28, 2013 09:57 AM V1-PT DECLINES TOBACCO [facility] CNTRL [facility]ATION [facility] Jan 28, 2013 09:57 AM V1-PT NOT INTERESTED IN VA CNTRL WSTRN QUIT [facility]BACCO [facility] Oct 18, 2011 02:45 PM QUIT TOBACCO USE IN PAST V A CNTRL WSTRN YEAR [facility] Oct 18, 2011 12:56 PM CURRENT SMOKER VA CNTRL W STRN half pack a week [facility] Encounter Notes: All associated encounter notes This section contains the clinical notes associated to the Encounter. Date/Time Encounter Note(s) Provider Source Oct 02, 2021 10:31 AM PRIMARY CARE SECURE MESSAGING: Perez WHELAN [place] CNTRL WSTRN LOCAL TITLE: PRIMARY CARE SECURE MESSAGING [facility] STANDARD TITLE: PRIMARY CARE SECURE MESSAGING DATE OF NOTE: OCT 02, 2021@10:31 ENTRY DATE: OCT 02, 2021@11:31:46 AUTHOR: MARCIE WHELAN EXP COSIGNER: URGENCY: STATUS: COMPLETED PRIMARY CARE SECURE MESSAGING Has ADDENDA * ------Original Message Sent: 09/30/2021 12:12 PM ET From: DRAGAN ROUSE To: Valeria LUQUE_PRIMARY CARE_[facility] Subject: Appointment:Therapist I would like to make an appointment for my ptsd. ------Original Message Sent: 10/02/2021 11:31 AM ET From: MARCIE WHELAN To: DRAGAN ROUSE Subject: Appointment:Therapist Lisette Mr. Rouse, I will alert the folks in Mental Health for you r desire to schedule an appointment with a therapist. They will contact you directly to schedule. 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 /malik BOTELLO Summer [employer] Coordinator MHSL Signed: 10/02/2021 11:42 Receipt Acknowledged By: 10/03/2021 11:20 /malik DOE Supervisory Medical Claims Manager 10/03/2021 ADDENDUM STATUS: COMPLETED was previously [facility], please review f or assignment. /malik DOE Supervisory Medical Claims Manager Signed: 10/03/2021 11:22 Receipt Acknowledged By: 10/03/2021 14:47 /martita/ Stefanie Belcher PsyD Staff Psychologist * AWAITING SIGNATURE * LAUREN REICH 10/03/2021 ADDENDUM STATUS: COMPLETED Alerted Radha Arreola to this request and CC sara fraser was forwarded to [facility] /martita/ Stefanie Belcher PsyD Staff Psychologist Signed: 10/03/2021 14:50
--- OUTSIDE RECORDS SUMMARY | 2021-12-31 15:56 | XMS_ITS | Encounter Summary ---
:1990 Author Organization Department [facility] rs Address [address] [place] [id number] Support Name Relationship Address Phone RESHMA BARROW Unavailable [address] [place] [address] RESHMA BARROW Unavailable [address] [place] [address] Selected Encounter This section includes the information on record at [place] for the Encounter. Date/Time Encounter Type Encounter Reason Provider Source Description August 28, 2021 08:26 Outpatient PRIMARY NAYELI HOGAN AM Encounter CARE/MEDICINE IHE Encounter Template Text not used by [place] Plan of Treatment: Future Appointments (+ 6 months) and Future Tests (+/- 45 days) The Plan of Treatment section includes future care activities for the patient from all [place] treatmentfacilities. This section includes future appointments and future orders which are active, pending orscheduled.Future Appointments This section includes appointments that were scheduled to occur 6 months from the date of the Encounter, up to a maximum of 20 appointments. The data comes from all [place] treatment facilities. Appointment Date/Time Appointment Type Appointment Facili ty Name Sep 13, 2021 10:00 AM AMBULATORY MEDICINE [facility] Sep 21, 2021 08:[address] [facility] MEDICINE [facility] Nov 16, 2021 09:[address] [facility] MEDICINE [facility] Active, Pending, and Scheduled Orders This section includes a listing of several types of active, pending, and scheduled orders, including clinic medications orders, diagnostic test orders, procedure orders and consult orders; where the start date of the order is 45 days before the date of the Encounter or 45 days after the date of the Encounter. The data comes from all [place] treatment facilities. Test Date/Time Test Type Test Details Facility Name Oct 02, 2021 12:32 PM Consult Order MENTAL HEALTH/[facility] OUTPT [place] Cons Delivery Technician's [facility] Choice Social History: Smoking Status (Most current) and Tobacco Use (All prior to encounter date) This section includes the most current, and the historical, smoking and tobacco-related health factors from the [place] facility where the Encounter took place.Current Smoking Status This section includes the most current smoking, or tobacco-related health factor, from the [place] facility where the Encounter took place. Date/Time Current Smoking Status Comment Facility August 10, 2021 08:15 AM VA-TOBACCO FOR[facility] USER [place] [facility] Tobacco Use History This section includes a history of the smoking, or tobacco- related health factors, that were collected on or before the date of the Encounter. The data comes from the [place] facility where the Encounter took place. 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 [place] [facility] August 03, 2020 02:00 PM VA-TOBACCO USE MED NO VA C NTRL [place] [facility] August 03, 2020 02:00 PM VA-TOBACCO USE WI 30 MIN V A CNTRL WSTRN OF [place] [facility] August 03, 2020 02:00 PM VA-TOBACCO USER EVERY DAY VA CNTRL [place] [facility] August 10, 2019 01:26 PM VA-TOBACCO NEVER USED VA C NTRL [place] [facility] Jul 15, 2018 03:43 PM VA-TOBACCO FORMER USER VA CNTRL [place]STR[place] [facility] Jul 15, 2018 03:43 PM VA-TOBACCO QUIT 1 TO < 5 V A CNTRL WSTRN YRS [place] [facility] August 22, 2017 03:08 PM QUIT TOBACCO USE 1-7 [facility] CN TRL [facility]STRN [facility] August 22, 2017 03:08 PM V1-QUIT TOBACCO USE > 1 [facility] Dec 31, 2016 01:45 PM QUIT TOBACCO USE IN PAST V A CNTRL WSTRN YEAR quit 11/21/16 [facility] Nov 20, 2016 08:15 PM TOBACCO INPATIENT [facility] Jun 26, 2016 07:05 AM CURRENT SMOKER [facility] Jun 26, 2016 07:05 AM V1-PT NOT INTERESTED IN VA CNTRL WSTRN QUIT [facility]ACCO [facility] Feb 28, 2014 01:16 PM CURRENT SMOKER VA CNTRL W STRN < 1 PP week [facility] Feb 28, 2014 01:16 PM V1-PT DECLINES REF TO VA C NTRL WSTRN [facility]ACCO [facility]ESS [facility] Feb 28, 2014 01:16 PM V1-PT DECLINES TOBACCO VA CNTRL WSTRN CESSATION MEDS [facility] Feb 28, 2014 01:16 PM V1-PT NOT INTERESTED IN VA CNTRL WSTRN QUIT TOBACCO USE [facility] August 17, 2013 09:43 AM V1-PT DECLINES REF TO VA C NTRL W[facility]ACCO [facility]ESS [facility] August 17, 2013 09:43 AM V1-PT DECLINES TOBACCO VA CNTRL WSTRN CESSATION MEDS [facility] August 17, 2013 09:43 AM V1-PT THINKING ABOUT QUIT VA CNTRL WSTRN TOBACCO USE [facility] Jan 28, 2013 09:57 AM CURRENT SMOKER [facility] Jan 28, 2013 09:57 AM V1-PT DECLINES REF TO VA C NTRL WSTRN [facility] Jan 28, 2013 09:57 AM V1-PT DECLINES TOBACCO [facility] CNTRL WSTRN [facility] Jan 28, 2013 09:57 AM V1-PT NOT INTERESTED IN VA CNTRL WSTRN QUIT TOBACCO USE [facility] Oct 18, 2011 02:45 PM QUIT TOBACCO USE IN PAST V A CNTRL WSTRN YEAR [facility] Oct 18, 2011 12:56 PM [facility] week [facility] Radiology Reports: +/- 30 days of the [...] the Encounter. The data comes from all [place] treatment facilities. Date/Time Radiology Report Provider Source August 10, 2021 09:38 AM HAND 3 OR MORE VIEWS(LEFT): EMMANUELLE BATRES [facility] DRAGAN BARROW [id number] [phone] M [facility] Exm Date: AUGUST 10, 2021@09:38 Req Phys: ANGIE REID Pat Loc: CWM/NO/SICK C DIOMEDES KUO (Req'g Loc Img Loc: NHM/BUILDING 1 Service: Unknown (Case [id number] COMPLETE) HAND 3 OR MORE VIEWS(LEFT) ( RAD Detailed) CPT:95655 Proc Modifiers : LEFT CPT Modifiers : LT LEFT SIDE Reason for Study: L hand pain Clinical History: Report Status: Verified Date Reported: AUGUST 10, 2021 Date Verified: AUGUST 10, 2021 Senior Front End Developer E-Sig:/ES/Emmanuelle Batres MD Report: EXAM: Left HAND, 3 VIEWS HISTORY: pain COMPARISON: None Impression: FINDINGS AND IMPRESSION: No acute fracture or dislocation. No significan t arthritic or degenerative changes. No focal soft tissue abno rmality. Primary Diagnostic Code: No immediate attention required Primary Interpreting Staff: Emmanuelle Batres MD, Chief of Imaging (Senior Front End Developer ) /on license of [facility] Encounter Notes: All associated encounter notes This section contains the clinical notes associated to the Encounter. Date/Time Encounter Note(s) Provider Source August 28, 2021 08:26 AM PRIMARY CARE SECURE MESSAGING: EVAN HOGAN [facility] W[facility] LOCAL TITLE: PRIMARY CARE SECURE MESSAGING [facility] STANDARD TITLE: PRIMARY CARE SECURE MESSAGING DATE OF NOTE: AUGUST 28, 2021@08:26 ENTRY DATE: AUGUST 28, 2021@09:26:53 AUTHOR: NAYELI HOGAN EXP COSIGNER: URGENCY: STATUS: COMPLETED ------Original Message Sent: 08/24/2021 08:29 AM ET From: DRAGAN BARROW To: Valeria LUQUE_PRIMARY CARE_[facility] Subject: General:Right hand brace Good morning, I wanted to know if I coul d get another brace for my right hand. [facility] is be coming very worn out and I would like to replace it if possible. Thank you ------Original Message Sent: 08/28/2021 09:26 AM ET From: NAYELI HOGAN To: DRAGAN BARROW Subject: General:Right hand brace Good morning This request was sent to prosthetics this jaime [facility] [employer] Nayeli Hogan RN /martita/ Nayeli Hogan RN, BSN PACT TEAM RN Signed: 08/28/2021 09:26
--- OUTSIDE RECORDS SUMMARY | 2021-12-31 15:56 | XMS_ITS ---
:1990 Author Organization Department of [facility] rs Address [address] [place] [id number] Support Name Relationship Address Phone RESHMA BARROW Unavailable [address] [place] [address] RESHMA BARROW Unavailable [address] [place] [address] Selected Encounter This section includes the information on record at [place] for the Encounter. Date/Time Encounter Type Encounter Reason Provider Source Description Sep 21, 2021 PURE TONE OCCUPATIONAL ICD-10-CM Z02.89 BRITTLESLIE 08:00 AM AUDIOMETRY AIR [facility] Encounter for other R administrative examinations with Provider Comments: Encounter for other Administrative Examinations IHE Encounter Template Text not used by [place] Assessments - Encounter Diagnoses This section includes the primary and secondary diagnoses documented for the Encounter. Date/Time Primary/Secondary Diagnosis Name Provider Source Diagnosis Sep 21, 2021 PRIMARY Encounter for other BRITT,LESLIE [facility] 08:23 AM administrative R [place] [facility] examinations Plan of Treatment: Future Appointments (+ 6 months) and Future Tests (+/- 45 days) The Plan of Treatment section includes future care activities for the patient from all [place] treatmentfacilities. This section includes future appointments and future orders which are active, pending orscheduled.Future Appointments This section includes appointments that were scheduled to occur 6 months from the date of the Encounter, up to a maximum of 20 appointments. The data comes from all [place] treatment facilities. Appointment Date/Time Appointment Type Appointment Facili ty Name Nov 16, 2021 09:30 AM AMBULATORY - MEDICINE [facility] Active, Pending, and Scheduled Orders This section includes a listing of several types of active, pending, and scheduled orders, including clinic medications orders, diagnostic test orders, procedure orders and consult orders; where the start date of the order is 45 days before the date of the Encounter or 45 days after the date of the Encounter. The data comes from all [place] treatment facilities. Test Date/Time Test Type Test Details Facility Name Oct 02, 2021 12:32 PM Consult Order MENTAL HEALTH/NHM [place] CNTRL WSTRN OUTPT Cons [facility] Upholsterer Apprentice's Choice Nov 02, 2021 12:00 AM Laboratory - CBC BLOOD (LAV-BLOOD) GA C NTRL WSTRN Chemistry Order SP [facility] Nov 02, 2021 12:00 AM Laboratory - LIPID PANEL FASTING [place] CNT RL WSTRN Chemistry Order BLOOD (SST-SERUM) [facility] Nov 02, 2021 12:00 AM Laboratory - LIVER FUNCTION BLOOD [facility] TRL WSTRN Chemistry Order (SST-SERUM) [facility] Nov 02, 2021 12:00 AM Laboratory - BASIC METABOLIC PANEL GA C NTRL WSTRN Chemistry Order (fasting) BLOOD [facility] (SST-SERUM) Nov 02, 2021 12:00 AM Laboratory - HEMOGLOBIN A1C PANEL GA CN TRL WSTRN Chemistry Order BLOOD (LAV-BLOOD) [facility] Nov 02, 2021 12:00 AM Laboratory - THYROID T4 FREE(FT4) [facility] TRL WSTRN Chemistry Order BLOOD (SST-SERUM) [facility] Nov 02, 2021 12:00 AM Laboratory - TSH BLOOD (SST-SERUM) [facility] NTRL WSTRN Chemistry Order [facility] Social History: Smoking Status (Most current) and Tobacco Use (All prior to encounter date) This section includes the most current, and the historical, smoking and tobacco-related health factors from the [place] facility where the Encounter took place.Current Smoking Status This section includes the most current smoking, or tobacco-related health factor, from the [place] facility where the Encounter took place. Date/Time Current Smoking Status Comment Facility August 10, 2021 08:15 AM VA-TOBACCO FORMER USER [facility] Tobacco Use History This section includes a history of the smoking, or tobacco- related health factors, that were collected on or before the date of the Encounter. The data comes from the [place] facility where the Encounter took place. Date/Time Smoking Status/Tobacco Comment Facility Use August 10, 2021 08:15 AM VA-TOBACCO QUIT < 1 YEAR 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 [facility] August 03, 2020 02:00 PM VA-TOBACCO USER EVERY DAY GA CNTRL WSTRN [facility] August 10, 2019 01:26 PM VA-TOBACCO NEVER USED VA C NTRL WSTRN [facility] Jul 15, 2018 03:43 PM VA-TOBACCO FORMER USER VA CNTRL WSTRN [facility] Jul 15, 2018 03:43 PM VA-TOBACCO QUIT 1 TO < 5 V A CNTRL WSTRN YRS [facility] August 22, 2017 03:08 PM QUIT TOBACCO USE 1-7 VA CN TRL WSTRN YEARS AGO [facility] August 22, 2017 03:08 PM V1-QUIT TOBACCO USE > 1 VA CNTRL WSTRN YEAR AGO [facility] Dec 31, 2016 01:45 PM QUIT TOBACCO USE IN PAST V A CNTRL WSTRN YEAR quit 11/21/16 [facility] Nov 20, 2016 08:15 PM TOBACCO INPATIENT VA CNTRL WSTRN DECLINES MEDS [facility] Jun 26, 2016 07:05 AM CURRENT SMOKER VA CNTRL W STRN [facility] Jun 26, 2016 07:05 AM V1-PT NOT INTERESTED IN VA CNTRL WSTRN QUIT TOBACCO USE [facility] Feb 28, 2014 01:16 PM CURRENT SMOKER VA CNTRL W STRN < 1 PP week [facility] Feb 28, 2014 01:16 PM V1-PT DECLINES REF TO VA C NTRL WSTRN TOBACCO CESS [facility] Feb 28, 2014 01:16 PM V1-PT DECLINES TOBACCO VA CNTRL WSTRN CESSATION MEDS [facility] Feb 28, 2014 01:16 PM V1-PT NOT INTERESTED IN VA CNTRL WSTRN QUIT TOBACCO USE [facility] August 17, 2013 09:43 AM V1-PT DECLINES REF TO VA C NTRL WSTRN TOBACCO CESS [facility] August 17, 2013 09:43 AM V1-PT DECLINES TOBACCO VA CNTRL WSTRN CESSATION MEDS [facility] August 17, 2013 09:43 AM V1-PT THINKING ABOUT QUIT VA CNTRL WSTRN TOBACCO USE [facility] Jan 28, 2013 09:57 AM CURRENT SMOKER VA CNTRL W STRN [facility] Jan 28, 2013 09:57 AM V1-PT DECLINES REF TO VA C NTRL WSTRN TOBACCO CESS [facility] [place] Jan 28, 2013 09:57 AM V1-PT DECLINES TOBACCO [facility] Jan 28, 2013 09:57 AM V1-PT NOT INTERESTED IN VA CNTRL WSTRN QUIT TOBACCO USE [facility] Oct 18, 2011 02:45 PM QUIT TOBACCO USE IN PAST V A CNTRL WSTRN YEAR [facility] Oct 18, 2011 12:56 PM CURRENT SMOKER VA CNTRL W STRN half pack a week [facility] Encounter Notes: All associated encounter notes This section contains the clinical notes associated to the Encounter. Date/Time Encounter Note(s) Provider Source Sep 21, 2021 08:19 AM AUDIOLOGY NOTE: LESLIE DE LA TORRE [facility] CNTRL W STRN LOCAL TITLE: EMPLOYEE HEALTH HEARING CONSERVATI ON [facility] STANDARD TITLE: AUDIOLOGY NOTE DATE OF NOTE: SEP 21, 2021@08:19 ENTRY DATE: SEP 21, 2021@08:19:05 AUTHOR: LESLIE DE LA TORRE EXP COSIGNER: URGENCY: STATUS: COMPLETED You may not VIEW this COMPLETED EMPLOYEE HEALTH HEARING CONSERVATION.
--- OUTSIDE RECORDS SUMMARY | 2021-12-31 15:56 | XMS_ITS ---
:1990 Author Organization [facility] rs Address [address] [place] [id number] Support Name Relationship Address Phone RESHMA ROUSE Unavailable [address] [place] [address] RESHMA ROUSE Unavailable [address] [place] [address] Selected Encounter This section includes the information on record at [place] for the Encounter. Date/Time Encounter Type Encounter Reason Provider Source Description Dec 31, 2021 07:18 Outpatient PRIMARY PREET WHELAN AM Encounter CARE/MEDICINE A E Encounter Template Text not used by [place] Social History: Smoking Status (Most current) and Tobacco Use (All prior to encounter date) This section includes the most current, and the historical, smoking and tobacco-related health factors from the [place] facility where the Encounter took place.Current Smoking Status This section includes the most current smoking, or tobacco-related health factor, from the [place] facility where the Encounter took place. Date/Time Current Smoking Status Comment Facility August 10, 2021 08:15 AM VA-TOBACCO [facility] Tobacco Use History This section includes a history of the smoking, or tobacco- related health factors, that were collected on or before the date of the Encounter. The data comes from the [place] facility where the Encounter took place. 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 VA CNTRL WSTRN [place] [facility] August 03, 2020 02:00 PM VA-TOBACCO USE MED NO VA C NTRL WSTRN [place] [facility] August 03, 2020 02:00 PM VA-TOBACCO USE WI 30 MIN V A CNTRL WSTRN OF [place] [facility] August 03, 2020 02:00 PM VA-TOBACCO USER EVERY DAY VA CNTRL WSTRN [place] [facility] August 10, 2019 01:26 PM VA-TOBACCO NEVER USED VA C NTRL WSTRN [place] [facility] Jul 15, 2018 03:43 PM VA-TOBACCO FORMER USER VA CNTRL WSTRN [place] [facility] Jul 15, 2018 03:43 PM VA-TOBACCO QUIT 1 TO < 5 V [facility] August 22, 2017 03:08 PM QUIT TOBACCO USE 1-7 VA CN TRL WSTRN [facility]ARS [facility] August 22, 2017 03:08 PM V1-QUIT TOBACCO USE > 1 [facility] CNTRL [facility]STRN [facility] Dec 31, 2016 01:45 PM QUIT TOBACCO USE IN PAST V A CNTRL WSTRN YEAR quit 11/21/16 [facility] Nov 20, 2016 08:15 PM TOBACCO INPATIENT VA CNTRL WSTRN DECLINES [facility]S [facility] Jun 26, 2016 07:05 AM CURRENT SMOKER [facility] Jun 26, 2016 07:05 AM V1-PT NOT INTERESTED IN VA CNTRL WSTRN QUIT TOBACCO USE [place] [facility] Feb 28, 2014 01:16 PM CURRENT SMOKER VA CNTRL W STRN < 1 PP week [facility] Feb 28, 2014 01:16 PM V1-PT DECLINES REF TO VA C NTRL WSTRN [facility]BACCO CESS [facility] Feb 28, 2014 01:16 PM V1-PT DECLINES TOBACCO VA CNTRL WSTRN [facility]ATION [facility] Feb 28, 2014 01:16 PM V1-PT NOT INTERESTED IN VA CNTRL WSTRN QUIT [facility]BACCO [facility] August 17, 2013 09:43 AM V1-PT DECLINES REF TO VA C NTRL WSTRN TOBACCO CESS [facility] August 17, 2013 09:43 AM V1-PT DECLINES TOBACCO VA CNTRL WSTRN CESSATION MEDS [facility] August 17, 2013 09:43 AM V1-PT THINKING ABOUT QUIT VA CNTRL WSTRN TOBACCO USE [place] [facility] Jan 28, 2013 09:57 AM CURRENT SMOKER VA CNTRL W STRN [facility] Jan 28, 2013 09:57 AM V1-PT DECLINES REF TO VA C NTRL WSTRN [facility]BACCO CESS [facility] Jan 28, 2013 09:57 AM V1-PT DECLINES TOBACCO VA CNTRL WSTRN CESSATION MEDS [facility] Jan 28, 2013 09:57 AM V1-PT NOT INTERESTED IN VA CNTRL WSTRN QUIT TOBACCO USE [facility] Oct 18, 2011 02:45 PM QUIT TOBACCO USE IN PAST V A CNTRL WSTRN YEAR [facility] Oct 18, 2011 12:56 PM CURRENT SMOKER VA CNTRL W STRN half pack a week [facility] Encounter Notes: All associated encounter notes This section contains the clinical notes associated to the Encounter. Date/Time Encounter Note(s) Provider Source Dec 31, 2021 07:18 AM PRIMARY CARE SECURE MESSAGING: Perez WHELAN [place] CNTRL WSTRN LOCAL TITLE: PRIMARY CARE SECURE MESSAGING [facility] STANDARD TITLE: PRIMARY CARE SECURE MESSAGING DATE OF NOTE: DEC 31, 2021@07:18 ENTRY DATE: DEC 31, 2021@08:18:13 AUTHOR: CHIQUIS WHELAN EXP COSIGNER: URGENCY: STATUS: COMPLETED PRIMARY CARE SECURE MESSAGING Has ADDENDA * ------Original Message Sent: 12/31/2021 06:58 AM ET From: DRAGAN ROUSE To: Valeria MOCTEZUMA_PRIMARY CARE_[facility] Subject: General:Urgent Good morning, could I please get a phone call, m y back is in too much pain to move and I have been unable to stand and would really like to speak to a doctor please thank you. ------Original Message Sent: 12/31/2021 08:18 AM ET From: CHIQUIS WHELAN To: DRAGAN ROUSE Subject: General:Urgent Good Morning Mr. Ruose, I will alert Dr. Moctezuma to your request for a phone call. Respectfully, Chiquis Whelan RN /martita/ Chiquis Whelan MSN RN CNL Primary Care RN Signed: 12/31/2021 08:18 Receipt Acknowledged By: 12/31/2021 09:36 /martita/ Catracho Moctezuma DNP, [facility] Primary Care Nurse Practitioner 12/31/2021 ADDENDUM STATUS: COMPLETED I suggest urgent care or ER evaluation c onsidering the level of distress he is reporting. /martita/ Catracho Moctezuma DNP, [facility]-, KYLIE Primary Care Nurse Practitioner Signed: 12/31/2021 09:37 Receipt Acknowledged By: 12/31/2021 09:54 /martita/ Chiquis SUGGS RN C Primary Care RN 12/31/2021 ADDENDUM STATUS: COMPLETED Vet advised of above via TC, provided [facility] information and number. /amlik SUGGS RN CNL Primary Care RN Signed: 12/31/2021 09:54
--- OUTSIDE RECORDS SUMMARY | 2021-12-31 15:56 | XMS_ITS ---
:1990 Author Organization Department [facility] rs Address [address] [place] [id number] Support Name Relationship Address Phone RESHMA ROUSE Unavailable [address] [place] [address] RESHMA ROUSE Unavailable [address] [place] [address] Selected Encounter This section includes the information on record at [place] for the Encounter. Date/Time Encounter Type Encounter Reason Provider Source Description Sep 25, 2021 07:51 Outpatient PRIMARY PREET WHELAN AM Encounter CARE/MEDICINE A IHE Encounter Template Text not used by [place] Plan of Treatment: Future Appointments (+ 6 months) and Future Tests (+/- 45 days) The Plan of Treatment section includes future care activities for the patient from all [place] treatmentfacilities. This section includes future appointments and future orders which are active, pending orscheduled.Future Appointments This section includes appointments that were scheduled to occur 6 months from the date of the Encounter, up to a maximum of 20 appointments. The data comes from all [place] treatment facilities. Appointment Date/Time Appointment Type Appointment Facili ty Name Nov 16, 2021 09:30 AM AMBULATORY - MEDICINE [facility] [place] [facility] Active, Pending, and Scheduled Orders This section includes a listing of several types of active, pending, and scheduled orders, including clinic medications orders, diagnostic test orders, procedure orders and consult orders; where the start date of the order is 45 days before the date of the Encounter or 45 days after the date of the Encounter. The data comes from all [place] treatment facilities. Test Date/Time Test Type Test Details Facility Name Oct 02, 2021 12:32 PM Consult Order MENTAL HEALTH/[facility] WSN OUTPT Cons [place] [facility] Microbiological Analyst's Choice Nov 02, 2021 12:00 AM Laboratory - CBC BLOOD (LAV-BLOOD) [place] C NTRL WSTRN Chemistry Order [facility] Nov 02, 2021 12:00 AM Laboratory - LIVER FUNCTION BLOOD [place] CN TRL WSTRN Chemistry Order (SST-SERUM) [facility] Nov 02, 2021 12:00 AM Laboratory - LIPID PANEL FASTING [place] CNT RL WSTRN Chemistry Order BLOOD (SST-SERUM) [facility] Nov 02, 2021 12:00 AM Laboratory - BASIC METABOLIC PANEL [place] C NTRL WSTRN Chemistry Order (fasting) BLOOD [facility] (SST-SERUM) Nov 02, 2021 12:00 AM Laboratory - THYROID T4 FREE(FT4) [place] CN TRL WSTRN Chemistry Order BLOOD (SST-SERUM) [facility] Nov 02, 2021 12:00 AM Laboratory - TSH BLOOD (SST-SERUM) [facility] NTRL WSTR[facility] Chemistry Order [facility] Nov 02, 2021 12:00 AM Laboratory - HEMOGLOBIN A1C PANEL [place] CN TRL WSTRN Chemistry Order BLOOD (LAV-BLOOD) [facility] Social History: Smoking Status (Most current) and Tobacco Use (All prior to encounter date) This section includes the most current, and the historical, smoking and tobacco-related health factors from the [place] facility where the Encounter took place.Current Smoking Status This section includes the most current smoking, or tobacco-related health factor, from the [place] facility where the Encounter took place. Date/Time Current Smoking Status Comment Facility August 10, 2021 08:15 AM [facility] Tobacco Use History This section includes a history of the smoking, or tobacco- related health factors, that were collected on or before the date of the Encounter. The data comes from the [place] facility where the Encounter took place. 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 VA CNTRL WSTRN [place] [facility] August 03, 2020 02:00 PM VA-TOBACCO USE MED NO VA C NTRL WSTRN [place] [facility] August 03, 2020 02:00 PM VA-TOBACCO USE [place] 30 MIN V A CNTRL WSTRN [facility] [facility] August 03, 2020 02:00 PM VA-TOBACCO USER EVERY DAY VA CNTRL WSTRN [place] [facility] August 10, 2019 01:26 PM VA-TOBACCO NEVER USED VA C N[facility]L [facility] Jul 15, 2018 03:43 PM VA-TOBACCO FORMER USER [facility] Jul 15, 2018 03:43 PM VA-TOBACCO QUIT 1 TO < 5 V A CNTRL WSTRN Y[facility] August 22, 2017 03:08 PM QUIT TOBACCO USE 1-7 VA CN TRL WSTRN YEARS AGO [facility] August 22, 2017 03:08 PM V1-QUIT TOBACCO USE > 1 VA CNTRL [facility]STRN [facility] Dec 31, 2016 01:45 PM QUIT TOBACCO USE IN PAST V A CNTRL WSTRN YEAR quit 11/21/16 [facility] Nov 20, 2016 08:15 PM TOBACCO INPATIENT VA CNTRL WSTRN DECLINES MED[facility] Jun 26, 2016 07:05 AM CURRENT SMOKER [facility] Jun 26, 2016 07:05 AM V1-PT NOT INTERESTED IN VA CNTRL WSTRN QUIT TOBACCO [facility] Feb 28, 2014 01:16 PM CURRENT SMOKER VA CNTRL W STRN < 1 PP week [facility] Feb 28, 2014 01:16 PM V1-PT DECLINES REF TO VA C NTRL WSTRN [facility]ACCO [facility]ESS [facility] Feb 28, 2014 01:16 PM V1-PT DECLINES TOBACCO VA CNTRL WSTRN [facility]ATION [facility] Feb 28, 2014 01:16 PM V1-PT NOT INTERESTED IN VA CNTRL WSTRN QUIT [facility]BACCO [facility] August 17, 2013 09:43 AM V1-PT DECLINES REF TO VA C NTRL WSTRN [facility]BACCO CESS [facility] August 17, 2013 09:43 AM V1-PT DECLINES TOBACCO VA CNTRL WSTRN [facility] August 17, 2013 09:43 AM V1-PT THINKING ABOUT QUIT VA CNTRL WSTRN TOBACCO USE [place] [facility] Jan 28, 2013 09:57 AM CURRENT SMOKER VA CNTRL W STRN [place] [facility] Jan 28, 2013 09:57 AM V1-PT DECLINES REF TO VA C NTRL WSTRN TOBACCO CESS [facility] Jan 28, 2013 09:57 AM V1-PT DECLINES TOBACCO VA CNTRL WSTRN CESSATION MEDS [facility] Jan 28, 2013 09:57 AM V1-PT NOT INTERESTED IN VA CNTRL WSTRN QUIT [facility]BACCO [facility] Oct 18, 2011 02:45 PM QUIT TOBACCO USE IN PAST V A CNTRL WSTRN YEAR [facility] Oct 18, 2011 12:56 PM CURRENT SMOKER VA CNTRL W STRN half pack a week [facility] Encounter Notes: All associated encounter notes This section contains the clinical notes associated to the Encounter. Date/Time Encounter Note(s) Provider Source Sep 25, 2021 07:51 AM PRIMARY CARE SECURE MESSAGING: Perez WHELAN [place] CNTRL WSTRN LOCAL TITLE: PRIMARY CARE SECURE MESSAGING [facility] STANDARD TITLE: PRIMARY CARE SECURE MESSAGING DATE OF NOTE: SEP 25, 2021@07:51 ENTRY DATE: SEP 25, 2021@08:51:18 AUTHOR: CHIQUIS WHELAN EXP COSIGNER: URGENCY: STATUS: COMPLETED PRIMARY CARE SECURE MESSAGING Has ADDENDA * ------Original Message Sent: 09/25/2021 07:48 AM ET From: DRAGAN ROUSE To: Valeria MOCTEZUMA_PRIMARY CARE_[facility] Subject: Medication:Sleep aid Good morning, I would like t o request some sort of sleep aid. I have no problem going to bed normally around 830/9 but I tend to wake at 1am and from that point I am waking and falling back asleep every 30/45 minutes. Thank you ------Original Message Sent: 09/25/2021 08:51 AM ET From: CHIQUIS WHELAN To: DRAGAN ROUSE Subject: Medication:Sleep aid Greetings Mr. Rouse, I will alert Dr. Moctezuma to your request for a sleep aid. Thank you for your service, Chiquis Whelan /martita/ Chiquis Whelan MSN RN CNL Primary Care RN Signed: 09/25/2021 08:51 09/25/2021 ADDENDUM STATUS: COMPLETED Last PCP visit 04/27/21 Next PCP visit scheduled for 11/16/21 /malik SUGGS RN CNL Primary Care RN Signed: 09/25/2021 08:52 Receipt Acknowledged By: 09/25/2021 08:56 /martita/ Catracho Moctezuma DNP, [facility] -NATALIE, KYLIE Primary Care Nurse Practitioner 09/25/2021 ADDENDUM STATUS: COMPLETED Alert to PACT RN: I have ord ered melatonin for him, window fern picker. He can take one 30mins to 60mins prior to bedtime. He can in crease to two tabs if needed. thank you. /martita/ Catracho Moctezuma DNP, SCHOOL BASED THERAPIST-BC, KYLIE Primary Care Nurse Practitioner Signed: 09/25/2021 09:29 Receipt Acknowledged By: 09/25/2021 09:42 /malik SUGGS RN C Primary Care RN 09/25/2021 ADDENDUM STATUS: COMPLETED Vet alerted to new RX via to include listed i nstructions from PCP /matrita/ Chiquis Whelan MSN RN CNL Primary Care RN Signed: 09/25/2021 09:43
--- OUTSIDE RECORDS SUMMARY | 2021-12-31 15:56 | XMS_ITS ---
:1990 Author Organization Department of [facility] rs Address [address] [place] [id number] Support Name Relationship Address Phone RESHMA BARROW Unavailable [address] [place] [address] RESHMA BARROW Unavailable [address] [place] [address] Selected Encounter This section includes the information on record at [place] for the Encounter. Date/Time Encounter Type Encounter Description Reason Provider Source Nov 12, 2021 11:18 Outpatient Encounter PRIMARY CARE/MEDICINE AM IHE Encounter Template Text not used by [place] Plan of Treatment: Future Appointments (+ 6 months) and Future Tests (+/- 45 days) The Plan of Treatment section includes future care activities for the patient from all [place] treatmentfacilities. This section includes future appointments and future orders which are active, pending orscheduled.Future Appointments This section includes appointments that were scheduled to occur 6 months from the date of the Encounter, up to a maximum of 20 appointments. The data comes from all [place] treatment facilities. Appointment Date/Time Appointment Type Appointment Facili ty Name Nov 16, 2021 09:30 AM [facility] [place] [facility] Active, Pending, and Scheduled Orders This section includes a listing of several types of active, pending, and scheduled orders, including clinic medications orders, diagnostic test orders, procedure orders and consult orders; where the start date of the order is 45 days before the date of the Encounter or 45 days after the date of the Encounter. The data comes from all [place] treatment facilities. Test Date/Time Test Type Test Details Facility Name Oct 02, 2021 12:32 PM Consult Order [facility] Cons [place] [facility] Emulsion Operator's Choice Nov 02, 2021 12:00 AM Laboratory - CBC BLOOD (LAV-BLOOD) [place] C NTRL WSTRN Chemistry Order SP [facility] Nov 02, 2021 12:00 AM Laboratory - LIPID PANEL FASTING [place] CNT RL WSTRN Chemistry Order BLOOD (SST-SERUM) [facility] Nov 02, 2021 12:00 AM Laboratory - LIVER FUNCTION BLOOD [facility] TRL WSTRN Chemistry Order (SST-SERUM) [facility] Nov 02, 2021 12:00 AM Laboratory - HEMOGLOBIN A1C PANEL [place] CN TRL WSTRN Chemistry Order BLOOD (LAV-BLOOD) [facility] Nov 02, 2021 12:00 AM Laboratory - BASIC METABOLIC PANEL [place] C NTRL WSTR[place] Chemistry Order (fasting) [facility] (SST-SERUM) Nov 02, 2021 12:00 AM Laboratory - THYROID T4 FREE(FT4) [facility] TRL WSTRN Chemistry Order BLOOD (SST-SERUM) [facility] Nov 02, 2021 12:00 AM Laboratory - TSH BLOOD (SST-SERUM) [facility] NTRL WSTRN Chemistry Order [facility] Social History: Smoking Status (Most current) and Tobacco Use (All prior to encounter date) This section includes the most current, and the historical, smoking and tobacco-related health factors from the [place] facility where the Encounter took place.Current Smoking Status This section includes the most current smoking, or tobacco-related health factor, from the [place] facility where the Encounter took place. Date/Time Current Smoking Status Comment Facility August 10, 2021 08:15 AM [facility] Tobacco Use History This section includes a history of the smoking, or tobacco- related health factors, that were collected on or before the date of the Encounter. The data comes from the [place] facility where the Encounter took place. Date/Time Smoking Status/Tobacco Comment Facility Use August 10, 2021 08:15 AM VA-TOBACCO QUIT < 1 YEAR V A CNTRL WSTRN [place] [facility] August 03, 2020 02:00 PM VA-TOBACCO USE 1 TO < 5 [place] [facility] August 03, 2020 02:00 PM VA-TOBACCO USE ADVICE [place] [facility] August 03, 2020 02:00 PM VA-TOBACCO USE RHINOLOGIST NO [place] CNTRL [place] [facility] August 03, 2020 02:00 PM VA-TOBACCO USE MED NO [facility] C [facility] August 03, 2020 02:00 PM VA-TOBACCO USE WI 30 MIN V A CNTRL WSTRN [facility] [place] [facility] August 03, 2020 02:00 PM VA-TOBACCO USER EVERY DAY [facility] August 10, 2019 01:26 PM VA-TOBACCO NEVER USED VA C N[facility]L [facility] Jul 15, 2018 03:43 PM VA-TOBACCO FORMER USER [facility] Jul 15, 2018 03:43 PM VA-TOBACCO QUIT 1 TO < 5 V A CNTRL WSTRN YRS [facility] August 22, 2017 03:08 PM QUIT TOBACCO USE 1-7 VA CN TRL WSTRN YEARS AGO [facility] August 22, 2017 03:08 PM V1-QUIT TOBACCO USE > 1 [facility] CNTRL WSTRN YEAR AGO [facility] Dec 31, 2016 01:45 PM QUIT TOBACCO USE IN PAST V A CNTRL WSTRN YEAR quit 11/21/16 [facility] Nov 20, 2016 08:15 PM TOBACCO INPATIENT [facility] CNTRL WSTR[facility]ES [facility] Jun 26, 2016 07:05 AM CURRENT SMOKER [facility] Jun 26, 2016 07:05 AM V1-PT NOT INTERESTED IN [place] CNTRL WSTR[facility] QUIT [facility]BACCO USE [facility] Feb 28, 2014 01:16 PM CURRENT SMOKER VA CNTRL W STRN < 1 PP week [facility] Feb 28, 2014 01:16 PM V1-PT DECLINES REF TO VA C NTRL WSTRN [facility]BACCO [facility]ESS [facility] Feb 28, 2014 01:16 PM V1-PT DECLINES TOBACCO [facility] CN[facility]L W[facility] CESSATION MEDS [facility] Feb 28, 2014 01:16 PM V1-PT NOT INTERESTED IN VA CNTRL WSTRN QUIT TOBACCO USE [facility] August 17, 2013 09:43 AM V1-PT DECLINES REF TO VA C NTRL WSTR[facility] TOBACCO CESS [facility] August 17, 2013 09:43 AM V1-PT DECLINES TOBACCO VA CNTRL W[facility] CESSATION [facility] August 17, 2013 09:43 AM V1-PT THINKING ABOUT QUIT [place] CNTRL [facility] TOBACCO USE [place] [facility] Jan 28, 2013 09:57 AM CURRENT SMOKER [place] CNTRL [place] [facility] Jan 28, 2013 09:57 AM V1-PT DECLINES REF TO VA C NTRL WSTRN TOBACCO CESS [facility] Jan 28, 2013 09:57 AM V1-PT DECLINES TOBACCO VA CNTRL WSTR[facility] CESSATION MEDS [facility] Jan 28, 2013 09:57 AM V1-PT NOT INTERESTED IN VA CNTRL WSTRN QUIT [facility]BACCO [facility] Oct 18, 2011 02:45 PM QUIT TOBACCO USE IN PAST V A CNTRL WSTRN YEAR [facility] Oct 18, 2011 12:56 PM CURRENT SMOKER VA CNTRL W STRN half pack a week [facility] Encounter Notes: All associated encounter notes This section contains the clinical notes associated to the Encounter. Date/Time Encounter Note(s) Provider Source Nov 12, 2021 11:18 AM NURSING NOTE: EBER VERA [place] CNTRL W STRN LOCAL TITLE: NURSING/TELEPHONE [facility] STANDARD TITLE: NURSING NOTE DATE OF NOTE: NOV 12, 2021@11:18 ENTRY DATE: NOV 12, 2021@11:18:55 AUTHOR: EBER VERA EXP COSIGNER: URGENCY: STATUS: COMPLETED vet was called, HT spoke with vet inform he has an appt with PCP on 11-16-2021@ [id number],also labs have been orderd,vet acknowledge these instructions. /martita/ Eber Vera, Health Fitting Room Associate DIRECTOR ELECTRICAL ENGINEERING,PRIMARY CARE Signed: 11/12/2021 11:21
--- OUTSIDE RECORDS SUMMARY | 2021-12-31 15:57 | XMS_ITS ---
:1990 Author Organization Department [facility] rs Address [address] [place] [id number] Support Name Relationship Address Phone RESHMA BARROW Unavailable [address] [place] [address] RESHMA BARROW Unavailable [address] [place] [address] Selected Encounter This section includes the information on record at [place] for the Encounter. Date/Time Encounter Type Encounter Description Reason Provider Source August 10, 2021 08:18 Outpatient Encounter PRIMARY CARE/MEDICINE AM E Encounter Template Text not used by [place] [...] Appointment Type Appointment Facili ty Name August 14, 2021 08:30 AM AMBULATORY - MEDICINE [place] [facility] August 28, 2021 11:00 AM AMBULATORY - REHAB [facility]ICINE [facility] W [place]N [place] [facility] Sep 13, 2021 10:00 AM AMBULATORY MEDICINE [place] [facility] Sep 21, 2021 08:00 AM AMBULATORY MEDICINE [place] [facility] Nov 16, 2021 09:30 AM [facility] Vital Signs: All taken on the encounter date This section contains inpatient and outpatient Vital Signs collected on the date of the Encounter. Date/Time Temperature Pulse Blood Respiratory SP02 Pain Height Weight Iker dy Source Pressure Rate Mass Index August 10 in 221 lb 32 [place] 2021 11:41 CN[place] AM [place] [facility] August 10 F 72 120/75 20 /min 97 % 7 221 lb 32 [place] 2021 08:17 /min mm[Hg] CNTRL AM [place] [facility] Social History: Smoking Status (Most current) [...] 10, 2021 08:15 AM VA-TOBACCO FORMER USER [place] CNTRL [place] [facility] Tobacco Use History This section includes a history of the smoking, or tobacco- related health factors, that were collected on or before the date of the Encounter. The data comes from the [place] facility where the Encounter took place. Date/Time Smoking Status/Tobacco Comment Facility Use August 10, 2021 08:15 AM VA-TOBACCO QUIT < 1 YEAR V A CNTRL WSTRN [place] [facility] August 03, 2020 02:00 PM VA-TOBACCO USE 1 TO < 5 VA CNTRL WSTRN YEARS [place] [facility] August 03, 2020 02:00 PM VA-TOBACCO USE ADVICE VA C NTRL W[place] [facility] August 03, 2020 02:00 PM VA-TOBACCO USE DIRECTOR SURGICAL NO [place] CNTRL [facility] [facility] August 03, 2020 02:00 PM VA-TOBACCO USE MED NO VA C NTRL W[place] [facility] August 03, 2020 02:00 PM VA-TOBACCO USE WI 30 MIN V A CNTRL WSTRN OF [place] [facility] August 03, 2020 02:00 PM VA-TOBACCO USER EVERY DAY VA CNTRL [place] [facility] August 10, 2019 01:26 PM VA-TOBACCO NEVER USED VA C NTRL WSTRN [place] [facility] Jul 15, 2018 03:43 PM VA-TOBACCO FORMER USER VA CNTRL WSTRN [place] [facility] Jul 15, 2018 03:43 PM VA-TOBACCO QUIT 1 TO < 5 V A [facility] August 22, 2017 03:08 PM QUIT TOBACCO USE 1-7 [facility] August 22, 2017 03:08 PM V1-QUIT TOBACCO USE > 1 [facility] CNTRL [facility]GO [facility] Dec 31, 2016 01:45 PM QUIT TOBACCO USE IN PAST V A CNTRL WSTRN YEAR quit 11/21/[facility] Nov 20, 2016 08:15 PM TOBACCO INPATIENT [place] [facility] Jun 26, 2016 07:05 AM CURRENT SMOKER [facility] Jun 26, 2016 07:05 AM V1-PT NOT INTERESTED IN [place] CNTRL WSTRN QUIT TOBACCO USE [facility] Feb 28, 2014 01:16 PM CURRENT SMOKER VA CNTRL W STRN < 1 PP week [facility] Feb 28, 2014 01:16 PM V1-PT DECLINES REF TO VA C NTRL WSTRN TOBACCO CESS [facility] [place] [facility] Feb 28, 2014 01:16 PM V1-PT DECLINES TOBACCO [facility] CN[facility]ATION [facility] Feb 28, 2014 01:16 PM V1-PT NOT INTERESTED IN [place] CNTRL WSTRN QUIT TOBACCO USE [facility] August 17, 2013 09:43 AM V1-PT DECLINES REF TO VA C NTRL WSTR[facility]BACCO CESS [facility] August 17, 2013 09:43 AM V1-PT DECLINES TOBACCO [facility] August 17, 2013 09:43 AM V1-PT THINKING ABOUT QUIT VA CNTRL WSTRN TOBACCO USE [facility] Jan 28, 2013 09:57 AM CURRENT SMOKER [place] CNTRL W [place] [facility] Jan 28, 2013 09:57 AM V1-PT DECLINES REF TO VA C NTRL WSTR[facility]BACCO CESS [facility] Jan 28, 2013 09:57 AM V1-PT DECLINES TOBACCO [facility] CN[facility] Jan 28, 2013 09:57 AM V1-PT NOT INTERESTED IN [place] CNTRL WSTR[facility] QUIT TOBACCO USE [place] [facility] Oct 18, 2011 02:45 PM QUIT TOBACCO USE IN PAST V A CNTRL WSTRN YEAR [facility] Oct 18, 2011 12:56 PM CURRENT SMOKER [place] CNT W STRN half pack a week [facility] Radiology Reports: +/- 30 days of [...] data comes from all [place] treatment facilities. Date/Time Radiology Report Provider Source August 10, 2021 09:38 AM HAND 3 OR MORE VIEWS(LEFT): EMMANUELLE BATRES [place] CNTRL WSTR[place] DRAGAN BARROW [facility] [phone] [phone] [phone] M [facility] Exm Date: AUGUST 10, 2021@09:38 Req Phys: ANGIE REID Pat Loc: CWM/NO/SICK C DIOMEDES KUO (Req'g Loc Img Loc: [facility]/BUILDING 1 Service: Unknown (Case [id number] COMPLETE) HAND 3 OR MORE VIEWS(LEFT) ( RAD Detailed) CPT:53561 Proc Modifiers : LEFT CPT Modifiers : LT LEFT SIDE Reason for Study: L hand pain Clinical History: Report Status: Verified Date Reported: AUGUST 10, 2021 Date Verified: AUGUST 10, 2021 Phlebotomy Lab Assistant E-Sig:/ES/Emmanuelle Batres MD Report: EXAM: Left HAND, 3 VIEWS HISTORY: pain COMPARISON: None Impression: FINDINGS AND IMPRESSION: No acute fracture or dislocation. No significan t arthritic or degenerative changes. No focal soft tissue abno rmality. Primary Diagnostic Code: No immediate attention required Primary Interpreting Staff: Emmanuelle Batres MD, Chief of Imaging (Phlebotomy Lab Assistant ) /[facility] Encounter Notes: All associated encounter notes This section contains the clinical notes associated to the Encounter. Date/Time Encounter Note(s) Provider Source August 10, 2021 08:19 AM PRIMARY CARE NOTE: [facility] CNTR L WSTRN LOCAL TITLE: WALK-IN NOTE PRIMARY CARE (T) EITAN HANSON RA [facility] STANDARD TITLE: PRIMARY CARE NOTE DATE OF NOTE: AUGUST 10, 2021@08:19 ENTRY DATE: AUGUST 10, 2021@08:19:05 AUTHOR: VINAY CABALLERO EXP COSIGNER: URGENCY: STATUS: COMPLETED <====Click to Start Advanced Medical Support [place] presents to the Primary Care clinic with the following request: [ ]Medication Renewal/Refill [ ]Consultation with Team RN [ X ]Symptoms HAND ISSUES [ ]Other The [place] states they are: [ X ]Waiting [ ]Not Waiting Yes Walk in visit scheduled with PACT Nurse [ X ] At this encounter the [place]'s demographi cs were verified. [ X ] At this encounter the [place]'s Insurance information was verified. [ X ] At this encounter the below scheduled visi ts for the [place] were discussed and appointment reminder card wa s offered. Future appointments: 11/16/2021 09:30 CWM/NO/PAC T 7 /es/ EITAN REICH Advanced Sole Tier Signed: 08/10/2021 08:19 Receipt Acknowledged By: * AWAITING SIGNATURE * FRANCES ZACARIAS
--- OUTSIDE RECORDS SUMMARY | 2021-12-31 15:57 | XMS_ITS | Encounter Summary ---
:1990 Author Organization Department [facility] rs Address [address] [place] [id number] Support Name Relationship Address Phone RESHMA BARROW Unavailable [address] [place] [address] RESHMA BARROW Unavailable [address] [place] [address] Selected Encounter This section includes the information on record at [place] for the Encounter. Date/Time Encounter Type Encounter Reason Provider Source Description August 14, 2021 OFFICE O/P EST PRIMARY ICD-10-CM MAGDI ALONZO 08:30 AM MINIMAL PROB CARE/MEDICINE M79.642 Pain M in left hand with Provider Comments: Pain in left Hand IHE Encounter Template Text not used by [facility] Assessments - Encounter Diagnoses This section includes the primary and secondary diagnoses documented for the Encounter. Date/Time Primary/Secondary Diagnosis Name Provider Source Diagnosis August 14, 2021 PRIMARY Pain [facility] left [facility] hand M [facility] Plan of Treatment: Future Appointments (+ 6 [...] 2021 11:00 AM AMBULATORY - [facility] [place] [facility] Sep 13, 2021 10:00 AM AMBULATORY - MEDICINE [facility] Sep 21, 2021 08:00 AM AM[place]ULATORY - [place]ICINE [place] [facility] W[place]N [place] [facility] Nov 16, 2021 09:30 AM AMBULATORY - MEDICINE [place] CN[place] W[place]N [facility] Vital Signs: All taken on the encounter date This section contains inpatient and outpatient Vital Signs collected on the date of the Encounter. Date/Time Temperature Pulse Blood Respiratory SP02 Pain Height Weight Iker dy Source Pressure Rate Mass Index August 14, 98.6 F 55 118/74 14 /min 97 % 0 [place] 2021 08:35 /min mm[Hg] [facility] Social History: Smoking Status (Most current) [...] 10, 2021 08:15 AM VA-TOBACCO FORMER USER [place] CNTRL WSTRN [facility] Tobacco Use History This section includes a history of the smoking, or tobacco- related health factors, that were collected on or before the date of the Encounter. The data comes from the [place] facility where the Encounter took place. 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 [place] [facility] August 03, 2020 02:00 PM VA-TOBACCO USE MED NO [place] C [place]TRL [place] [facility] August 03, 2020 02:00 PM VA-TOBACCO USE WI 30 MIN V A CNTRL WSTRN OF WAKEUP [facility] August 03, 2020 02:00 PM VA-TOBACCO USER EVERY DAY [facility] August 10, 2019 01:26 PM VA-TOBACCO NEVER USED [facility] Jul 15, 2018 03:43 PM VA-TOBACCO FORMER USER [facility] Jul 15, 2018 03:43 PM VA-TOBACCO QUIT 1 TO < 5 V A CNTRL WSTRN YRS [facility] August 22, 2017 03:08 PM QUIT TOBACCO USE 1-7 VA CN TRL WSTRN YEARS AGO [facility] August 22, 2017 03:08 PM V1-QUIT TOBACCO USE > 1 VA CNTRL WSTRN [facility]AR [facility] Dec 31, 2016 01:45 PM QUIT TOBACCO USE IN PAST V A CNTRL WSTRN YEAR quit 11/21/16 [facility] Nov 20, 2016 08:15 PM TOBACCO INPATIENT VA CNTRL WSTRN DECLINES MEDS [facility] Jun 26, 2016 07:05 AM CURRENT SMOKER [facility] Jun 26, 2016 07:05 AM V1-PT NOT INTERESTED IN VA CNTRL WSTRN QUIT TOBACCO USE [facility] Feb 28, 2014 01:16 PM CURRENT SMOKER VA CNTRL W STRN < 1 PP week [facility] Feb 28, 2014 01:16 PM V1-PT DECLINES REF TO VA C NTRL WSTRN TOBACCO CESS [facility] Feb 28, 2014 01:16 PM V1-PT DECLINES TOBACCO VA CNTRL WSTRN CESSATION MEDS [facility] Feb 28, 2014 01:16 PM V1-PT NOT INTERESTED IN VA CNTRL WSTRN QUIT TOBACCO USE [facility] August 17, 2013 09:43 AM V1-PT DECLINES REF TO VA C NTRL WSTRN TOBACCO CESS PRGM [facility] August 17, 2013 09:43 AM V1-PT DECLINES TOBACCO VA CNTRL WSTRN C[facility]ATION [facility] August 17, 2013 09:43 AM V1-PT THINKING ABOUT QUIT VA CNTRL WSTRN TOBACCO USE [facility] Jan 28, 2013 09:57 AM CURRENT SMOKER VA CN[facility]L W STRN [facility] Jan 28, 2013 09:57 AM V1-PT DECLINES REF TO VA C NTRL WSTRN TOBACCO CESS [facility] Jan 28, 2013 09:57 AM V1-PT DECLINES TOBACCO [place] CNTR WSTRN CESSATION MEDS [facility] Jan 28, 2013 09:57 AM V1-PT NOT INTERESTED IN [place] CNT WSTRN QUIT TOBACCO USE [facility] Oct 18, 2011 02:45 PM QUIT TOBACCO USE IN PAST V A CNTRL WSTRN YEAR [facility] Oct 18, 2011 12:56 PM CURRENT SMOKER [place] CNTR W STRN half pack a week [facility] Radiology Reports: +/- 30 days of [...] data comes from all [place] treatment facilities. Date/Time Radiology Report Provider Source August 10, 2021 09:38 AM HAND 3 OR MORE VIEWS(LEFT): EMMANUELLE BATRES [place] CNTRL WSTRN DRAGAN BARROW ANT [id number] -[birth year]Y 05 9 M [facility] Exm Date: AUGUST 10, 2021@09:38 Req Phys: ANGIE REID Pat Loc: CWM/NO/SICK C DIOMEDES KUO (Req'g Loc Img Loc: [facility] 1 Service: Unknown (Case [id number] COMPLETE) HAND 3 OR MORE VIEWS(LEFT) ( RAD Detailed) CPT:65487 Proc Modifiers : LEFT CPT Modifiers : LT LEFT SIDE Reason for Study: L hand pain Clinical History: Report Status: Verified Date Reported: AUGUST 10, 2021 Date Verified: AUGUST 10, 2021 [place]cher E-Sig:/ES/Emmanuelle Batres MD Report: EXAM: Left HAND, 3 VIEWS HISTORY: pain COMPARISON: None Impression: FINDINGS AND IMPRESSION: No acute fracture or dislocation. No significan t arthritic or degenerative changes. No focal soft tissue abno rmality. Primary Diagnostic Code: No immediate attention required Primary Interpreting Staff: Emmanuelle Batres MD, Chief of Imaging (Crab Butcher ) /[facility] Encounter Notes: All associated encounter notes This section contains the clinical notes associated to the Encounter. Date/Time Encounter Note(s) Provider Source August 14, 2021 08:36 AM PRIMARY CARE OUTPATIENT NOTE: MEGAN ALONZO [place] CNTRL WSTRN LOCAL TITLE: AMBULATORY/OUTPATIENT CARE NOTE [facility] STANDARD TITLE: PRIMARY CARE OUTPATIENT NOTE DATE OF NOTE: AUGUST 14, 2021@08:36 ENTRY DATE: AUGUST 14, 2021@08:36:42 AUTHOR: MAGDI ALONZO EXP COSIGNER: URGENCY: STATUS: COMPLETED F: Walk-in for L hand pain, f/u D: walks in for f/u on sick call visit l ast Friday. reports ongoing pain in his left hand when he uses it. P ain level of 0 this morning, but goes up to a 7 or 8 when he uses it. X-rays done last Friday. Radial pulse strong and regular, VS WNL. Hand do es not appear to be red or swollen upon examination. [place] has full ROM. A: X-ray results communicated to during visit: No acute fracture or dislocation. No significan t arthritic or degenerative changes. No focal soft tissue abnor mality. R: Continue with MD plan of care from Friday: Consultation with OT: appt scheduled for 2 @ 11am Take APAP/ibuprofen as neeed for pain. also instructed that he should elevate h and and apply ice when he is experiencing pain. [place] appreciative of care. Will f/u with OT on the . Pneumococcal PPSV23 (Pneumovax): The patient declines to receive the recommended dose of pneumococcal polysaccharide vaccine PPSV23 (Pneumovax). Medication Reconciliation: Outpatient: Has the patient been taking medications as docu mented in the EMLR? YES: The patient has been taking medications as documented in the EMLR. Essential Medication List for Review used to co mplete this medication reconciliation. INCLUDED IN THIS LIST: Alphabetical list of act carmelo outpatient prescriptions dispensed from this VA (local) an d dispensed from another VA or DoD facility (remote) as well as inpatien t orders (local, pending and active), local clinic medications, locally documented non-VA medications, and local prescriptions that have or been discontinued in the past 90 days. - All changes in medications, including all non -VA/Herbal/OTC medications were entered into CPRS. - If there were any medications the patient nicolette uld no longer take, they were discontinued. - The patient/caregiver was instructed to updat e this list, discard old lists, and take this list to the next appointme nt, whether with a VA or non-VA provider. Allergies/ADRs (Tool #5) FACILITY ALLERGY/ADR -------- No Remote Allergy/ADR Data available for this [facility]L [facility] [place] [facility] No Known Allergi es Med Recon NoGlossary (Tool #1) INCLUDED IN THIS LIST: Alphabetical list of act carmelo outpatient prescriptions dispensed from this [place] (local) an d dispensed from another [place] or [facility] facility (remote) as well as inpatien t orders (local pending and active), local clinic medications, locally docu mented non-VA medications, and local prescriptions that have or be en discontinued in the past 90 days. Non-VA Meds Last Documented On: Data not fou nd NOTE The display of VA prescriptions disp ensed from another VA or DoD facility (remote) is limited to active outp [facility] prescription entries matched to National Drug File at the [facility] emergency department site and may not include some items such as investigational drugs, compo unds, etc. NOT INCLUDED IN THIS LIST: Medications self-ent ered by the patient into personal health records (i.e. [employer]) ar e NOT included in this list. Non-VA medications documented outside [facility] VA, remote inpatient orders (regardless of status) and remote clinic medications are NOT included in this list. The patient and provider must always discuss medications the patient is taking, regardless o f where the medication was dispensed or obtained. OUTPT SILDENAFIL CITRATE 100MG TAB (Status = Di scontinued) TAKE ONE TABLET BY MOUTH ONCE DAILY NEEDED * *TAKE 1 HOUR PRIOR TO SEXUAL ACTIVITY Rx# [id number] Last Released: 04/27/21 Qty/Days Sup ply: 07/28 Rx Expiration Date: 04/28/22 Refills Remainin SUPPLIES Td / Tdap Immunization: The patient declines to receive the recommended dose of Tetanus/Diphtheria vaccine (Td). COVID-19 Immunization: The patient declines an additional dose of vacc ine at this time. /martita/ MAGDI ALONZO, MSN, RN, NICHOLE-BC REGISTERED NURSE Signed: 08/14/2021 08:46 Receipt Acknowledged By: * AWAITING SIGNATURE * GEORGE LUQUE
--- OUTSIDE RECORDS SUMMARY | 2021-12-31 15:57 | XMS_ITS | Encounter Summary ---
:1990 Author Organization Department [facility] rs Address [address] [place] [id number] Support Name Relationship Address Phone RESHMA BARROW Unavailable [address] [place] [address] RESHMA BARROW Unavailable [address] [place] [address] Selected Encounter This section includes the information on record at [place] for the Encounter. Date/Time Encounter Type Encounter Description Reason Provider Source August 14, 2021 08:29 Outpatient Encounter PRIMARY CARE/MEDICINE [facility] Encounter Template Text not used by [place] Plan of Treatment: Future Appointments (+ 6 months) and Future Tests (+/- 45 days) The Plan of Treatment section includes future care activities for the patient from all [place] treatmentfacilities. This section includes future appointments and future orders which are active, pending orscheduled.Future Appointments This section includes appointments that were scheduled to occur 6 months from the date of the Encounter, up to a maximum of 20 appointments. The data comes from all [place] treatment facilities. Appointment Date/Time Appointment Type Appointment Facili ty Name August 28, 2021 11:00 AM AMBULATORY - [facility]IC[facility] Sep 13, 2021 10:00 AM [facility] Sep 21, 2021 08:00 AM [facility] Nov 16, 2021 09:30 AM [facility] Vital Signs: All taken on the encounter date This section contains inpatient and outpatient Vital Signs collected on the date of the Encounter. Date/Time Temperature Pulse Blood Respiratory SP02 Pain Height Weight Iker dy Source Pressure Rate Mass Index August 14, 98.6 F 55 118/74 14 /min 97 % 0 [facility] 2021 08:35 /min mm[Hg] CNTRL AM [place] [facility] Social History: Smoking Status (Most current) and Tobacco Use (All prior to encounter date) This section includes the most current, and the historical, smoking and tobacco-related health factors from the [place] facility where the Encounter took place.Current Smoking Status This section includes the most current smoking, or tobacco-related health factor, from the [place] facility where the Encounter took place. Date/Time Current Smoking Status Comment Facility August 10, 2021 08:15 AM VA-TOBACCO FORMER USER [place] [facility] Tobacco Use History This section includes a history of the smoking, or tobacco- related health factors, that were collected on or before the date of the Encounter. The data comes from the [place] facility where the Encounter took place. 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[place] [facility] August 03, 2020 02:00 PM VA-TOBACCO USE MED NO VA C NTRL [place] [facility] August 03, 2020 02:00 PM VA-TOBACCO USE WI 30 MIN V A CNTRL WSTRN OF [place] [facility] August 03, 2020 02:00 PM VA-TOBACCO USER EVERY DAY [place] CNTRL [place] [facility] August 10, 2019 01:26 PM VA-TOBACCO NEVER USED VA C NTRL [place] [facility] Jul 15, 2018 03:43 PM VA-TOBACCO FORMER USER [place] CNTRL [place] [facility] Jul 15, 2018 03:43 PM VA-TOBACCO QUIT 1 TO < 5 V A CNTRL WSTRN YRS [place] [facility] August 22, 2017 03:08 PM QUIT TOBACCO USE 1-7 VA CN TRL WSTRN YEARS AGO [place] [facility] August 22, 2017 03:08 PM V1-QUIT TOBACCO USE > 1 VA CNTRL WSTRN YEAR AGO [place] [facility] Dec 31, 2016 01:45 PM QUIT TOBACCO USE IN PAST V A CNTRL WSTRN YEAR quit 11/21/16 [facility] Nov 20, 2016 08:15 PM TOBACCO INPATIENT [place] CNTRL WSTR[facility]CL[facility]ES [facility] Jun 26, 2016 07:05 AM CURRENT SMOKER VA CNTRL [place] [facility] Jun 26, 2016 07:05 AM V1-PT NOT INTERESTED IN VA CNTRL WSTRN QUIT TOBACCO USE [facility] Feb 28, 2014 01:16 PM CURRENT SMOKER VA CNTRL W STRN < 1 PP week [facility] Feb 28, 2014 01:16 PM V1-PT DECLINES REF TO VA C NTRL WSTRN TOBACCO [facility]ESS [facility] Feb 28, 2014 01:16 PM V1-PT DECLINES TOBACCO VA CNTRL WSTRN CESSATION MEDS [facility] Feb 28, 2014 01:16 PM V1-PT NOT INTERESTED IN VA CNTRL WSTRN QUIT TOBACCO USE [facility] August 17, 2013 09:43 AM V1-PT DECLINES REF TO VA C NTRL WSTRN TOBACCO CESS [facility] August 17, 2013 09:43 AM V1-PT DECLINES TOBACCO VA CNTRL WSTRN CESSATION MEDS [facility] August 17, 2013 09:43 AM V1-PT THINKING ABOUT QUIT VA CNTRL WSTRN TOBACCO USE [facility] Jan 28, 2013 09:57 AM CURRENT SMOKER VA [facility]L W [facility] Jan 28, 2013 09:57 AM V1-PT DECLINES REF TO VA C NTRL WSTRN TOBACCO CESS [facility] Jan 28, 2013 09:57 AM V1-PT DECLINES TOBACCO VA CNTRL WSTRN CESSATION MEDS [facility] Jan 28, 2013 09:57 AM V1-PT NOT INTERESTED IN VA CNTRL WSTRN QUIT TOBACCO USE [facility] Oct 18, 2011 02:45 PM QUIT TOBACCO USE IN PAST V A CNTRL WSTRN YEAR [facility] Oct 18, 2011 12:56 PM CURRENT SMOKER VA CNTRL W STRN half pack a week [facility] Radiology Reports: +/- 30 days of [...] the Encounter. The data comes from all [place] treatment facilities. Date/Time Radiology Report Provider Source August 10, 2021 09:38 AM HAND 3 OR MORE VIEWS(LEFT): EMMANUELLE BATRES [place] CNTRL WSTRN [place] [facility] [phone] -[birth year]Y 05 9 M [facility] Exm Date: AUGUST 10, 2021@09:38 Req Phys: ANGIE REID Pat Loc: CWM/NO/SICK C ALL (Req'g Loc Img Loc: [facility] [place] 1 Service: Unknown (Case [id number] COMPLETE) HAND 3 OR MORE VIEWS(LEFT) ( RAD Detailed) CPT:30586 Proc Modifiers : LEFT CPT Modifiers : LT LEFT SIDE Reason for Study: L hand pain Clinical History: Report Status: Verified Date Reported: AUGUST 10, 2021 Date Verified: AUGUST 10, 2021 Wildlife Officer E-Sig:/ES/Emmanuelle Batres MD Report: EXAM: Left HAND, 3 VIEWS HISTORY: pain COMPARISON: None Impression: FINDINGS AND IMPRESSION: No acute fracture or dislocation. No significan t arthritic or degenerative changes. No focal soft tissue abno rmality. Primary Diagnostic Code: No immediate attention required Primary Interpreting Staff: Emmanuelle Batres MD, Chief of Imaging (Wildlife Officer ) /[facility] Encounter Notes: All associated encounter notes This section contains the clinical notes associated to the Encounter. Date/Time Encounter Note(s) Provider Source August 14, 2021 08:29 AM PRIMARY CARE [facility]: [facility] CNTR L WSTRN LOCAL TITLE: WALK-IN NOTE PRIMARY CARE (T) EITAN HANSON RA [facility] STANDARD TITLE: PRIMARY CARE NOTE DATE OF NOTE: AUGUST 14, 2021@08:29 ENTRY DATE: AUGUST 14, 2021@08:30:02 AUTHOR: VINAY CABALLERO EXP COSIGNER: URGENCY: STATUS: COMPLETED <====Click to Start Advanced Medical Support [place] presents to the Primary Care clinic with the following request: [ ]Medication Renewal/Refill [ ]Consultation with Team RN [ X ]Symptoms HAND ISSUES - XRAY RESULTS [ ]Other The [place] states they are: [ X ]Waiting [ ]Not Waiting Yes Walk in visit scheduled with PACT Nurse [ X ] At this encounter the [place]'s demographi cs were verified. [ X ] At this encounter the [place]'s Insurance information was verified. [ X ] At this encounter the below scheduled visi ts for the [place] were discussed and appointment reminder card wa s offered. Future appointments: 08/28/2021 11:00 CWM/NO/OCC UPATIONAL THERA 11/16/2021 09:30 CWM/NO/PACT 7 /es/ EITAN REICH Advanced Manager Of Supply Chain Signed: 08/14/2021 08:31 Receipt Acknowledged By: * AWAITING SIGNATURE * MAGDI ALONZO
--- OUTSIDE RECORDS SUMMARY | 2021-12-31 15:58 | XMS_ITS | Encounter Summary ---
:1990 Author Organization Department [facility] rs Address [address] [place] [address] Support Name Relationship Address Phone RESHMA BARROW Unavailable [address] [place] [address] RESHMA BARROW Unavailable [address] [place] [address] Selected Encounter This section includes the information on record at [place] for the Encounter. Date/Time Encounter Type Encounter Description Reason Provider Source May 08, 2021 01:14 Outpatient Encounter COMMUNITY CARE PM CONSULT IHE Encounter Template Text not used by [facility] Plan of Treatment: Future Appointments (+ 6 [...] 20 appointments. The data comes from all [place] treatment facilities. Appointment Date/Time Appointment Type Appointment Facili ty Name May 09, 2021 12:15 PM AMBULATORY - MEDICINE [place] [facility] [place] [facility] Jun 04, 2021 12:00 PM AMBULATORY - MEDICINE [place] [facility] [place] [place] [facility] August 10, 2021 08:15 AM AMBULATORY - MEDICINE [place] [facility] [place] [facility] August 10, 2021 08:45 AM AMBULATORY - MEDICINE [place] [facility] [place] [facility] August 10, 2021 09:30 AM AMBULATORY - NONE [place] [facility] [place] [facility] August 14, 2021 08:30 AM AMBULATORY - MEDICINE [place] [facility] [place] [facility] August 28, 2021 11:00 AM AMBULAT[facility] Sep 13, 2021 10:00 AM AMBULATORY - MEDICINE [place] [facility] [place] [place] [facility] Sep 21, 2021 08:00 AM AMBULATORY - MEDICINE PA CN[facility]L WSTRN [facility] Social History: Smoking Status (Most current) and Tobacco Use (All prior to encounter date) This section includes the most current, and the historical, smoking and tobacco-related health factors from the [place] facility where the Encounter took place.Current Smoking Status This section includes the most current smoking, or tobacco-related health factor, from the [place] facility where the Encounter took place. Date/Time Current Smoking Status Comment Facility August 03, 2020 02:00 PM VA-TOBACCO USER EVERY DAY PA CNTRL WSTRN [facility] Tobacco Use History This section includes a history of the smoking, or tobacco- related health factors, that were collected on or before the date of the Encounter. The data comes from the [place] facility where the Encounter took place. 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 [facility] August 03, 2020 02:00 PM VA-TOBACCO USE MED NO [facility] C [facility] [place] [facility] August 03, 2020 02:00 PM VA-TOBACCO USE WI 30 MIN V A CNTRL WSTRN OF [place] [facility] August 03, 2020 02:00 PM VA-TOBACCO USER EVERY DAY [facility] [place] [facility] August 10, 2019 01:26 PM VA-TOBACCO NEVER USED [facility] Jul 15, 2018 03:43 PM VA-TOBACCO FORMER USER [facility] Jul 15, 2018 03:43 PM VA-TOBACCO QUIT 1 TO < 5 V A [facility] August 22, 2017 03:08 PM QUIT TOBACCO USE 1-7 VA CN TRL WSTRN YEARS AGO [facility] August 22, 2017 03:08 PM V1-QUIT TOBACCO USE > 1 [facility] Dec 31, 2016 01:45 PM QUIT TOBACCO USE IN PAST V A CNTRL WSTRN YEAR quit 11/21/16 [facility] Nov 20, 2016 08:15 PM TOBACCO INPATIENT [facility] Jun 26, 2016 07:05 AM CURRENT SMOKER [facility] [place] [facility] Jun 26, 2016 07:05 AM V1-PT NOT INTERESTED IN [facility] CN[facility]L [facility] QUIT TOBACCO USE [place] [facility] Feb 28, 2014 01:16 PM CURRENT SMOKER VA CNTRL W STRN < 1 PP week [facility] Feb 28, 2014 01:16 PM V1-PT DECLINES REF TO VA C NTRL WSTRN [facility]ACCO [facility]ESS [facility] Feb 28, 2014 01:16 PM V1-PT DECLINES TOBACCO VA CNTRL WSTRN CESSATION MEDS [facility] Feb 28, 2014 01:16 PM V1-PT NOT INTERESTED IN VA CN[facility]L WSTRN QUIT [facility]BACCO [facility] August 17, 2013 09:43 AM V1-PT DECLINES REF TO VA C NTRL WSTRN TOBACCO CESS [facility] August 17, 2013 09:43 AM V1-PT DECLINES TOBACCO VA CN[facility]L W[facility] C[facility]ATION [facility] August 17, 2013 09:43 AM V1-PT THINKING ABOUT QUIT VA CNTRL WSTRN TOBACCO USE [facility] Jan 28, 2013 09:57 AM CURRENT SMOKER [facility] [place] [facility] Jan 28, 2013 09:57 AM V1-PT DECLINES REF TO VA C NTRL WSTRN TOBACCO CESS [facility] Jan 28, 2013 09:57 AM V1-PT DECLINES TOBACCO VA CN[facility]L W[facility] C[facility]ATION [facility] Jan 28, 2013 09:57 AM V1-PT NOT INTERESTED IN VA CNTRL WSTRN QUIT TOBACCO [facility] Oct 18, 2011 02:45 PM QUIT TOBACCO USE IN PAST V A CNTRL WSTRN YEAR [facility] Oct 18, 2011 12:56 PM CURRENT SMOKER VA CNTRL W STRN half pack a week [facility] Encounter Notes: All associated encounter notes This section contains the clinical notes associated to the Encounter. Date/Time Encounter Note(s) Provider Source May 08, 2021 01:14 PM NONVA NOTE: [facility] TITLE: COMMUNITY CARE COORDINATION PLAN STANDARD TITLE: NONVA NOTE DATE OF NOTE: MAY 08, 2021@13:14 ENTRY DATE: MAY 08, 2021@13:15:03 AUTHOR: KEVIN LOBO EXP COSIGNER: URGENCY: STATUS: COMPLETED self-presented to community emergency fa cility Emergency Notification Intake Date Presenting to the Facility: May [facility] Hospital Name: Hospital: [place] [address] [phone] Address: City: [place] State: Zip Code: Phone : Chief complaint: FELL ON ARM Primary Diagnosis: Patient Admitted? No Community Facility Point of Contact: Name: Phone: info from [employer] /martita/ KEVIN SOMMER Signed: 05/08/2021 13:19 Receipt Acknowledged By: * AWAITING SIGNATURE * NURYS SMYTH * AWAITING SIGNATURE * HAILY MELLO * AWAITING SIGNATURE * NITIN RENDON * AWAITING SIGNATURE * GEORGE LUQUE
--- OUTSIDE RECORDS SUMMARY | 2021-12-31 15:58 | XMS_ITS | Encounter Summary ---
:1990 Author Organization Department [facility] rs Address [address] [place] [id number] Support Name Relationship Address Phone RESHMA BARROW Unavailable [address] [place] [address] RESHMA BARROW Unavailable [address] [place] [address] Selected Encounter This section includes the information on record at [place] for the Encounter. Date/Time Encounter Type Encounter Description Reason Provider Source May 10, 2021 12:00 Outpatient Encounter COMMUNITY CARE AM CONSULT IHE Encounter Template Text not used [...] 20 appointments. The data comes from all MD treatment facilities. Appointment Date/Time Appointment Type Appointment Facili ty Name Jun 04, 2021 12:00 PM AMBULATORY - MEDICINE [place] [facility] August 10, 2021 08:15 AM AMBULATORY - MEDICINE MD [facility] [place] [facility] August 10, 2021 08:45 AM AMBULATORY - MEDICINE MD CN[facility] [place] [facility] August 10, 2021 09:30 AM AMBULATORY - NONE MD CNTRL [place] [facility] August 14, 2021 08:30 AM AMBULATORY - MEDICINE MD CN[facility] [facility] August 28, 2021 11:00 AM AMBULATORY - REHAB MEDICINE MD [facility] [facility] Sep 13, 2021 10:00 AM AMBULATORY - MEDICINE MD [facility] [facility] Sep 21, 2021 08:00 AM AMBULATORY - MEDICINE MD CNTRL WSTRN [facility] Social History: Smoking Status (Most current) and Tobacco Use (All prior to encounter date) This section includes the most current, and the historical, smoking and tobacco-related health factors from the MD facility where the Encounter took place.Current Smoking Status This section includes the most current smoking, or tobacco-related health factor, from the MD facility where the Encounter took place. Date/Time Current Smoking Status Comment Facility August 03, 2020 02:00 PM VA-TOBACCO USER EVERY DAY MD CNTRL WSTRN [facility] Tobacco Use History This section includes a history of the smoking, or tobacco- related health factors, that were collected on or before the date of the Encounter. The data comes from the MD facility where the Encounter took place. 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 [facility] August 03, 2020 02:00 PM VA-TOBACCO USE MED NO [facility] August 03, 2020 02:00 PM VA-TOBACCO USE WI 30 MIN V A CNTRL WSTRN OF [place] [facility] August 03, 2020 02:00 PM VA-TOBACCO USER EVERY DAY [facility] August 10, 2019 01:26 PM VA-TOBACCO NEVER USED [facility] Jul 15, 2018 03:43 PM VA-TOBACCO FORMER USER [facility] Jul 15, 2018 03:43 PM VA-TOBACCO QUIT 1 TO < 5 V A CNTRL WSTRN Y[facility] August 22, 2017 03:08 PM QUIT TOBACCO USE 1-7 VA CN TRL WSTRN YEARS AGO [facility] August 22, 2017 03:08 PM V1-QUIT TOBACCO USE > 1 VA CNTRL WSTRN YEAR AGO [facility] Dec 31, 2016 01:45 PM QUIT TOBACCO USE IN PAST V A CNTRL WSTRN YEAR quit 11/21/16 [facility] Nov 20, 2016 08:15 PM TOBACCO INPATIENT VA [facility]L [facility]INES [facility] Jun 26, 2016 07:05 AM CURRENT SMOKER VA [facility] [place] [facility] Jun 26, 2016 07:05 AM V1-PT NOT INTERESTED IN VA CNTRL WSTRN QUIT TOBACCO [facility] Feb 28, 2014 01:16 PM CURRENT SMOKER VA CNTRL W STRN < 1 PP week [facility] Feb 28, 2014 01:16 PM V1-PT DECLINES REF TO VA C NTRL WSTRN TOBACCO [facility]ESS [facility] Feb 28, 2014 01:16 PM V1-PT DECLINES TOBACCO VA CNTRL WSTRN CESSATION MEDS [facility] Feb 28, 2014 01:16 PM V1-PT NOT INTERESTED IN VA CNTRL WSTRN QUIT TOBACCO USE [facility] August 17, 2013 09:43 AM V1-PT DECLINES REF TO VA C NTRL WSTRN TOBACCO CESS [facility] August 17, 2013 09:43 AM V1-PT DECLINES TOBACCO VA CNTRL WSTRN CESSATION MEDS [facility] August 17, 2013 09:43 AM V1-PT THINKING ABOUT QUIT VA CNTRL WSTRN TOBACCO USE [facility] Jan 28, 2013 09:57 AM CURRENT SMOKER [facility] Jan 28, 2013 09:57 AM V1-PT DECLINES REF TO VA C NTRL WSTRN TOBACCO CESS [facility] Jan 28, 2013 09:57 AM V1-PT DECLINES TOBACCO VA CNTRL WSTRN CESSATION [facility]S [facility] Jan 28, 2013 09:57 AM V1-PT NOT INTERESTED IN VA CNTRL WSTRN QUIT TOBACCO USE [facility] Oct 18, 2011 02:45 PM QUIT TOBACCO USE IN PAST V A CNTRL WSTRN YEAR [facility] Oct 18, 2011 12:56 PM CURRENT SMOKER VA CNTRL W STRN half pack a week [facility] Encounter Notes: All associated encounter notes This section contains the clinical notes associated to the Encounter. Date/Time Encounter Note(s) Provider Source May 10, 2021 12:00 AM NONVA CONSULT: VA CNTRL W STRN LOCAL TITLE: COMMUNITY CARE-CONSULT RESULT NOTE [facility] STANDARD TITLE: NONVA CONSULT DATE OF NOTE: MAY 10, 2021 ENTRY DATE: MAY 15 022@09:34:33 AUTHOR: ORLANDO PANCHAL COSIGNER: URGENCY: STATUS: COMPLETED VistA Imaging - Scanned Document SCANNED DOCUMENT SIGNATURE NOT REQUIRED Electronically Filed: 05/15/2021 by: YEYO PANCHAL Spinner Tender
--- OUTSIDE RECORDS SUMMARY | 2021-12-31 15:58 | XMS_ITS ---
:1990 Author Organization Department [facility] rs Address [address] [place] [address] Support Name Relationship Address Phone RESHMA BARROW Unavailable [address] [place] [address] RESHMA BARROW Unavailable [address] [place] [address] Selected Encounter This section includes the information on record at [place] for the Encounter. Date/Time Encounter Type Encounter Description Reason Provider Source Jun 04, 2021 12:00 Outpatient Encounter COMMUNITY CARE AM [...] Appointment Type Appointment Facili ty Name August 10, 2021 08:15 AM AMBULATORY [place]ICINE [place] [facility] August 10, 2021 08:45 AM AMBULATORY - MEDICINE [place] [facility] August 10, 2021 09:30 AM AMBULATORY - NONE [place] [facility] August 14, 2021 08:30 AM AMBULATORY - MEDICINE [place] [facility] August 28, 2021 11:00 AM AMBULATORY - REHAB MEDICINE [place] [facility] Sep 13, 2021 10:00 AM AMBULATORY - MEDICINE [place] [facility] Sep 21, 2021 08:00 AM AMBULATORY - MEDICINE [place] [facility] [facility] Nov 16, 2021 09:30 AM AMBULATORY - [facility]ICINE [place] [facility] Social History: Smoking Status (Most current) [...] 2020 02:00 PM VA-TOBACCO USER EVERY DAY [place] CNTR[place]STR[place] [facility] Tobacco Use History This section includes a history of the smoking, or tobacco- related health factors, that were collected on or before the date of the Encounter. The data comes from the [place] facility where the Encounter took place. 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 [facility] August 03, 2020 02:00 PM VA-TOBACCO USE MED NO [place] C [place] [facility] August 03, 2020 02:00 PM VA-TOBACCO USE WI 30 MIN V A CNTRL WSTRN OF [place] [facility] August 03, 2020 02:00 PM VA-TOBACCO USER EVERY DAY [facility] August 10, 2019 01:26 PM VA-TOBACCO NEVER USED VA C NTRL WSTR[facility] Jul 15, 2018 03:43 PM VA-TOBACCO FORMER USER [facility] Jul 15, 2018 03:43 PM VA-TOBACCO QUIT 1 TO < 5 V A CNTRL WSTRN YRS [facility] August 22, 2017 03:08 PM QUIT TOBACCO USE 1-7 VA CN TRL WSTRN YEARS AGO [facility] August 22, 2017 03:08 PM V1-QUIT TOBACCO USE > 1 VA CNTRL WSTRN YEAR AGO [facility] Dec 31, 2016 01:45 PM QUIT TOBACCO USE IN PAST V A CNTRL WSTRN YEAR quit 11/21/16 [facility] Nov 20, 2016 08:15 PM TOBACCO INPATIENT VA CNTRL WSTRN DECLINES MEDS [facility] Jun 26, 2016 07:05 AM CURRENT SMOKER [facility] [place] [facility] Jun 26, 2016 07:05 AM V1-PT NOT INTERESTED IN VA CNTRL WSTRN QUIT TOBACCO USE [facility] Feb 28, 2014 01:16 PM CURRENT SMOKER VA CNTRL W STRN < 1 PP week [facility] Feb 28, 2014 01:16 PM V1-PT DECLINES REF TO VA C NTRL WSTRN TOBACCO CESS [facility] Feb 28, 2014 01:16 PM V1-PT DECLINES TOBACCO VA CNTRL WSTRN CESSATION MEDS [facility] Feb 28, 2014 01:16 PM V1-PT NOT INTERESTED IN VA CNTRL WSTRN QUIT TOBACCO USE [facility] August 17, 2013 09:43 AM V1-PT DECLINES REF TO VA C NTRL WSTRN TOBACCO CESS [facility] August 17, 2013 09:43 AM V1-PT DECLINES TOBACCO VA CNTRL WSTRN CESSATION MEDS [facility] August 17, 2013 09:43 AM V1-PT THINKING ABOUT QUIT VA CNTRL WSTRN TOBACCO USE [facility] Jan 28, 2013 09:57 AM CURRENT SMOKER [facility] Jan 28, 2013 09:57 AM V1-PT DECLINES REF TO VA C NTRL WSTRN TOBACCO CESS [facility] Jan 28, 2013 09:57 AM V1-PT DECLINES TOBACCO VA CNTRL WSTRN CESSATION MEDS [facility] Jan 28, 2013 09:57 AM V1-PT NOT INTERESTED IN VA CNTRL WSTRN QUIT TOBACCO USE [facility] Oct 18, 2011 02:45 PM QUIT TOBACCO USE IN PAST V A CNTRL WSTRN YEAR [facility] Oct 18, 2011 12:56 PM CURRENT SMOKER VA CNTRL W STRN half pack a week [facility] Encounter Notes: All associated encounter notes This section contains the clinical notes associated to the Encounter. Date/Time Encounter Note(s) Provider Source Jun 04, 2021 12:00 AM NONVA CONSULT: VA CNTRL W STRN LOCAL TITLE: COMMUNITY CARE-CONSULT RESULT [facility] STAND[facility] TITLE: NONVA CONSULT DATE OF NOTE: JUN 04, 2021 ENTRY DATE: AUGUST 09 022@14:52:40 AUTHOR: JOVANY FAN COSIGNER: URGENCY: STATUS: COMPLETED VistA Imaging - Scanned Document SCANNED DOCUMENT SIGNATURE NOT REQUIRED Electronically Filed: 08/09/2021 by: JOVANY FAN ICE CRUSHER
--- OUTSIDE RECORDS SUMMARY | 2021-12-31 15:58 | XMS_ITS ---
:1990 Author Organization Department [facility] rs Address [address] [place] [id number] Support Name Relationship Address Phone RESHMA BARROW Unavailable [address] [place] [address] RESHMA BARROW Unavailable [address] [place] [address] Selected Encounter This section includes the information on record at [place] for the Encounter. Date/Time Encounter Type Encounter Reason Provider Source Description August 10, 2021 OFFICE O/P EST PRIMARY ICD-10-CM I10 SPENCER ZACARIAS 08:15 AM MINIMAL PROB CARE/MEDICINE Essential HY E (primary) hypertension with Provider Comments: Hypertension IHE Encounter Template Text not used by [place] Assessments - Encounter Diagnoses This section includes the primary and secondary diagnoses documented for the Encounter. Date/Time Primary/Secondary Diagnosis Name Provider Source Diagnosis August 10, 2021 PRIMARY Essential SPENCER ZACARIAS [facility] 01:01 PM (primary) HY E [facility] hypertension Plan of Treatment: Future Appointments (+ 6 months) and Future Tests (+/- 45 days) The Plan of Treatment section includes future care activities for the patient from all [place] treatmentfacilities. This section includes future appointments and future orders which are active, pending orscheduled.Future Appointments This section includes appointments that were scheduled to occur 6 months from the date of the Encounter, up to a maximum of 20 appointments. The data comes from all [place] treatment facilities. Appointment Date/Time Appointment Type Appointment Facili ty Name August 14, 2021 08:30 AM AMBULATORY - MEDICINE [facility] August 28, 2021 11:00 AM AMBULATORY - REHAB MEDICINE [facility] Sep 13, 2021 10:00 AM AMBULATORY [place]IC[place] [facility] [place] [facility] Sep 21, 2021 08:00 AM AMBULATORY - [place]ICINE [place] [facility] [place] [facility] Nov 16, 2021 09:30 AM [facility] [place] [facility] Vital Signs: All taken on the encounter date This section contains inpatient and outpatient Vital Signs collected on the date of the Encounter. Date/Time Temperature Pulse Blood Respiratory SP02 Pain Height Weight Iker dy Source Pressure Rate Mass Index August 10 in 221 lb 32 [place] 2021 11:41 [place] [facility] August 10 F 72 120/75 20 /min 97 % 7 221 lb 32 [place] 2021 08:17 /min mm[Hg] [facility] [place] [facility] Social History: Smoking Status (Most current) and Tobacco Use (All prior to encounter date) This section includes the most current, and the historical, smoking and tobacco-related health factors from the [place] facility where the Encounter took place.Current Smoking Status This section includes the most current smoking, or tobacco-related health factor, from the [place] facility where the Encounter took place. Date/Time Current Smoking Status Comment Facility August 10, 2021 08:15 AM VA-TOBACCO FORMER USER [facility] Tobacco Use History This section includes a history of the smoking, or tobacco- related health factors, that were collected on or before the date of the Encounter. The data comes from the [place] facility where the Encounter took place. Date/Time Smoking Status/Tobacco Comment Facility Use August 10, 2021 08:15 AM VA-TOBACCO QUIT < 1 YEAR V A [facility] [place] 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 August 03, 2020 02:00 PM VA-TOBACCO USE MED NO [facility] C [facility] [place] [facility] August 03, 2020 02:00 PM VA-TOBACCO USE WI 30 MIN V A CNTRL W[facility] [place] [facility] August 03, 2020 02:00 PM VA-TOBACCO USER EVERY DAY [facility] August 10, 2019 01:26 PM VA-TOBACCO NEVER USED [facility] C [facility] Jul 15, 2018 03:43 PM VA-TOBACCO FORMER USER VA [facility] Jul 15, 2018 03:43 PM VA-TOBACCO QUIT 1 TO < 5 V A CNTRL WSTRN YRS [facility] August 22, 2017 03:08 PM QUIT TOBACCO USE 1-7 VA CN TRL WSTRN YEARS AGO [facility] August 22, 2017 03:08 PM V1-QUIT TOBACCO USE > 1 VA CNTRL WSTRN YEAR AGO [facility] Dec 31, 2016 01:45 PM QUIT TOBACCO USE IN PAST V A CNTRL WSTRN YEAR quit 11/21/16 [facility] Nov 20, 2016 08:15 PM TOBACCO INPATIENT [facility] Jun 26, 2016 07:05 AM CURRENT SMOKER [facility] Jun 26, 2016 07:05 AM V1-PT NOT INTERESTED IN [place] [facility] QUIT TOBACCO USE [facility] Feb 28, 2014 01:16 PM CURRENT SMOKER VA CN[facility]L W STRN < 1 PP week [facility] Feb 28, 2014 01:16 PM V1-PT DECLINES REF TO VA C NTRL WSTRN TOBACCO CESS [facility] Feb 28, 2014 01:16 PM V1-PT DECLINES TOBACCO VA CNTRL WSTRN CESSATION MEDS [facility] Feb 28, 2014 01:16 PM V1-PT NOT INTERESTED IN VA [facility] QUIT TOBACCO USE [facility] August 17, 2013 09:43 AM V1-PT DECLINES REF TO VA C NTRL W[facility] TOBACCO CESS [facility] August 17, 2013 09:43 AM V1-PT DECLINES TOBACCO VA CN[facility]L [facility] CESSATION MEDS [facility] August 17, 2013 09:43 AM V1-PT THINKING ABOUT QUIT VA [facility]L [facility]N TOBACCO USE [facility] Jan 28, 2013 09:57 AM CURRENT SMOKER VA [facility] Jan 28, 2013 09:57 AM V1-PT DECLINES REF TO VA C NTRL WSTRN TOBACCO CESS [facility] Jan 28, 2013 09:57 AM V1-PT DECLINES TOBACCO VA CNTRL WSTR[facility] CESSATION MEDS [facility] Jan 28, 2013 09:57 AM V1-PT NOT INTERESTED IN VA CN[facility]L [facility] QUIT TOBACCO USE [facility] Oct 18, 2011 02:45 PM QUIT TOBACCO USE IN PAST V A CNTRL WSTRN YEAR [facility] Oct 18, 2011 12:56 PM CURRENT SMOKER [place] CN[facility] [place] STR[facility] half pack a week [facility] Radiology Reports: +/- 30 days of the [...] the Encounter. The data comes from all [place] treatment facilities. Date/Time Radiology Report Provider Source August 10, 2021 09:38 AM HAND 3 OR MORE VIEWS(LEFT): EMMANUELLE BATRES [place] [facility]AGAN BARROW [facility] [id number] [phone] [phone] M [facility] Exm Date: AUGUST 10, 2021@09:38 Req Phys: ANGIE REID Pat Loc: CWM/NO/SICK C DIOMEDES KUO (Req'g Loc Img Loc: [facility] 1 Service: Unknown (Case [id number] COMPLETE) HAND 3 OR MORE VIEWS(LEFT) ( RAD Detailed) CPT:56898 Proc Modifiers : LEFT CPT Modifiers : LT LEFT SIDE Reason for Study: L hand pain Clinical History: Report Status: Verified Date Reported: AUGUST 10, 2021 Date Verified: AUGUST 10, 2021 Shift Lab Technician E-Sig:/ES/Emmanuelle Batres MD Report: EXAM: Left HAND, 3 VIEWS HISTORY: pain COMPARISON: None Impression: FINDINGS AND IMPRESSION: No acute fracture or dislocation. No significan t arthritic or degenerative changes. No focal soft tissue abno rmality. Primary Diagnostic Code: No immediate attention required Primary Interpreting Staff: Emmanuelle Batres MD, Chief of Imaging (Shift Lab Technician ) /[facility] Encounter Notes: All associated encounter notes This section contains the clinical notes associated to the Encounter. Date/Time Encounter Note(s) Provider Source August 10, 2021 08:16 AM PRIMARY CARE OUTPATIENT NOTE: JAH ZACARIAS [place] [facility] LOCAL TITLE: AMBULATORY/OUTPATIENT CARE NOTE [place] [facility] STANDARD TITLE: PRIMARY CARE OUTPATIENT NOTE DATE OF NOTE: AUGUST 10, 2021@08:16 ENTRY DATE: AUGUST 10, 2021@08:16:09 AUTHOR: FRANCES ZACARIAS EXP COSIGNER: URGENCY: STATUS: COMPLETED F: Walk-in D: Vet presented as a walkin requesting to be seen in sick call for what he says is hand issues. He says that his L hand/wrist is hurting him. He says that he has had L hand pain for the last 2 weeks . He does not recall any injury. He is taking no meds for this pain. He has good ROM in his L hand Left hand 3 views today: Impression: FINDINGS AND IMPRESSION: No acute fracture or dislocation. No significan t arthritic or degenerative changes. No focal soft tissue abno rmality. Primary Diagnostic Code: No immediate attention required Advance Directive Screen: Patient does not have a completed advance direc tive on file at any facility, [place] or outside. S/he is not interested in completing one at this time. The patient received education about Advance Di rectives and written notification of his/her rights. Suicide Screen: C-SSRS Screening [place] Suicide Severity Rating Scale (C-SSRS) screener 1. Over the past month, have you wished you wer e or wished you could go to sleep and not wake up? No 2. Over the past month, have you had any actual thoughts of killing yourself? No 3. Over the past month, have you been thinking about how you might do this? Response not required due to responses to other questions. 4. Over the past month, have you had these thou ghts and had some intention of acting on them? Response not required due to responses to other questions. 5. Over the past month, have you started to wor k out or worked out the details of how to kill yourself? Response not required due to responses to other questions. 6. If yes, at any time in the past month did yo u intend to carry out this plan? Response not required due to responses to other questions. 7. In your lifetime, have you ever done anythin g, started to do anything, or prepared to do anything to end you r life (for example, collected pills, obtained a gun, gave away valu kristi, went to the roof but didn't jump)? No 8. If YES, was this within the past 3 months? Response not required due to responses to other questions. Tobacco Use Screening: The patient is a former tobacco user. The patient quit less than one year ago. Alcohol Use Screen (AUDIT-C): Alcohol Screen: SCREEN FOR ALCOHOL (AUDIT-C) An alcohol screening test (AUDIT-C) was negativ e (score=2). 1. How often did you have a drink containing al cohol in the past year? Two to four times a month 2. How many drinks containing alcohol did you h ave on a typical day when you were drinking in the past year? One or two drinks 3. How often did you have six or more drinks on one occasion in the past year? Never BMI>30/>24.99 High Risk: Click to enter Height Height: 70 in [177.8 cm) Click to enter Weight Weight: 221 lb (100.5 kg) At this visit, the health risks of obesity were reviewed and discussed with the [place], and the benefits of a weight management treatment program, such as MOVE! was discussed and offere d to the . New Height and/or Weight Measurement just enter ed. /es/ FRANCES ZACARIAS MSN Ed., BSN CRAFT DEMONSTRATOR NURSE Signed: 08/10/2021 13:01 Receipt Acknowledged By: * AWAITING SIGNATURE * ANGIE REID
--- OUTSIDE RECORDS SUMMARY | 2021-12-31 15:58 | XMS_ITS ---
:1990 Author Organization Department [facility] rs Address [address] [place] [address] Support Name Relationship Address Phone RESHMA BARROW Unavailable [address] [place] [address] RESHMA BARROW Unavailable [address] [place] [address] Selected Encounter This section includes the information on record at [place] for the Encounter. Date/Time Encounter Type Encounter Reason Provider Source Description August 10, 2021 OFFICE O/P EST PRIMARY ICD-10-CM ANGIE REID 08:45 AM LOW 20-29 MIN CARE/MEDICINE M25.542 Pain D in joints of left hand with Provider Comments: Pain in joints of left hand IHE Encounter Template Text not used by [place] Assessments - Encounter Diagnoses This section includes the primary and secondary diagnoses documented for the Encounter. Date/Time Primary/Secondary Diagnosis Name Provider Source Diagnosis August 10, 2021 PRIMARY Pain in joints ANGIE REID [facility] RN 09:13 AM of left hand D [facility] Plan of Treatment: Future Appointments (+ 6 months) and Future Tests (+/- 45 days) The Plan of Treatment section includes future care activities for the patient from all [place] treatmentfacilities. This section includes future appointments and future orders which are active, pending orscheduled.Future Appointments This section includes appointments that were scheduled to occur 6 months from the date of the Encounter, up to a maximum of 20 appointments. The data comes from all [place] treatment facilities. Appointment Date/Time Appointment Type Appointment Facili ty Name August 14, 2021 08:30 AM [facility] August 28, 2021 11:00 AM AMBULATORY - [facility]ICINE [facility] [place] [facility] Sep 13, 2021 10:00 AM AMBULATORY - MEDICINE [place] [facility] [place] [facility] Sep 21, 2021 08:00 AM AMBULATORY - MEDICINE [place] [facility] [place] [facility] Nov 16, 2021 09:30 AM AMBULATORY - MEDICINE [place] [facility] [place] [facility] Vital Signs: All taken on the encounter date This section contains inpatient and outpatient Vital Signs collected on the date of the Encounter. Date/Time Temperature Pulse Blood Respiratory SP02 Pain Height Weight Iker dy Source Pressure Rate Mass Index August 10 in 221 lb 32 [place] 2021 11:41 [facility] [place] [facility] August 10 F 72 120/75 20 /min 97 % 7 221 lb 32 [place] 2021 08:17 /min mm[Hg] [facility] [place] [facility] Social History: Smoking Status (Most current) and Tobacco Use (All prior to encounter date) This section includes the most current, and the historical, smoking and tobacco-related health factors from the [place] facility where the Encounter took place.Current Smoking Status This section includes the most current smoking, or tobacco-related health factor, from the [place] facility where the Encounter took place. Date/Time Current Smoking Status Comment Facility August 10, 2021 08:15 AM VA-TOBACCO FORMER USER [place] [facility] [place] [facility] Tobacco Use History This section includes a history of the smoking, or tobacco- related health factors, that were collected on or before the date of the Encounter. The data comes from the [place] facility where the Encounter took place. 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 August 03, 2020 02:00 PM VA-TOBACCO USER EVERY DAY [facility] [place] [facility] August 10, 2019 01:26 PM VA-TOBACCO NEVER USED VA C [facility] [place] [facility] Jul 15, 2018 03:43 PM VA-TOBACCO FORMER USER [facility] [place] [facility] Jul 15, 2018 03:43 PM VA-TOBACCO QUIT 1 TO < 5 V A [facility] August 22, 2017 03:08 PM QUIT TOBACCO USE 1-7 VA CN TRL WSTRN YEARS AGO [facility] August 22, 2017 03:08 PM V1-QUIT TOBACCO USE > 1 VA CNTRL WSTRN YEAR AGO [facility] Dec 31, 2016 01:45 PM QUIT TOBACCO USE IN PAST V A CNTRL WSTRN YEAR quit 11/21/16 [facility] Nov 20, 2016 08:15 PM TOBACCO INPATIENT [facility] Jun 26, 2016 07:05 AM CURRENT SMOKER [facility] Jun 26, 2016 07:05 AM V1-PT NOT INTERESTED IN VA [facility] QUIT TOBACCO USE [facility] Feb 28, 2014 01:16 PM CURRENT SMOKER VA [facility] W STRN < 1 PP week [facility] Feb 28, 2014 01:16 PM V1-PT DECLINES REF TO VA C NTRL WSTRN TOBACCO CESS [facility] Feb 28, 2014 01:16 PM V1-PT DECLINES TOBACCO VA [facility] CESSATION MEDS [facility] Feb 28, 2014 01:16 PM V1-PT NOT INTERESTED IN VA CN[facility]L WSTRN QUIT TOBACCO USE [facility] August 17, 2013 09:43 AM V1-PT DECLINES REF TO VA C NTRL WSTRN TOBACCO CESS PR[facility] August 17, 2013 09:43 AM V1-PT DECLINES TOBACCO VA [facility] CESSATION MEDS [facility] August 17, 2013 09:43 AM V1-PT THINKING ABOUT QUIT VA [facility]L WSTRN TOBACCO USE [facility] Jan 28, 2013 09:57 AM CURRENT SMOKER [facility] Jan 28, 2013 09:57 AM V1-PT DECLINES REF TO VA C NTRL WSTRN TOBACCO CESS [facility] Jan 28, 2013 09:57 AM V1-PT DECLINES TOBACCO VA CN[facility] WSTRN CESSATION MEDS [facility] Jan 28, 2013 09:57 AM V1-PT NOT INTERESTED IN VA CNTRL WSTRN QUIT TOBACCO USE [facility] Oct 18, 2011 02:45 PM QUIT TOBACCO USE IN PAST V A CNTRL WSTRN YEAR [facility] Oct 18, 2011 12:56 PM CURRENT SMOKER VA [facility] W STRN half pack a week [facility] Radiology Reports: +/- 30 days of the [...] the Encounter. The data comes from all [place] treatment facilities. Date/Time Radiology Report Provider Source August 10, 2021 09:38 AM HAND 3 OR MORE VIEWS(LEFT): EMMANUELLE BATRES [place] [facility] W[facility]N DRAGAN BARROW [id number] -[birth year] M [facility] Exm Date: AUGUST 10, 2021@09:38 Req Phys: ANGIE REID Pat Loc: CWM/NO/SICK C DIOMEDES KUO (Req'g Loc Img Loc: [facility]/BUILDING 1 Service: Unknown (Case [id number] COMPLETE) HAND 3 OR MORE VIEWS(LEFT) ( RAD Detailed) CPT:56156 Proc Modifiers : LEFT CPT Modifiers : LT LEFT SIDE Reason for Study: L hand pain Clinical History: Report Status: Verified Date Reported: AUGUST 10, 2021 Date Verified: AUGUST 10, 2021 Regulatory Submissions Associate E-Sig:/ES/Emmanuelle Batres MD Report: EXAM: Left HAND, 3 VIEWS HISTORY: pain COMPARISON: None Impression: FINDINGS AND IMPRESSION: No acute fracture or dislocation. No significan t arthritic or degenerative changes. No focal soft tissue abno rmality. Primary Diagnostic Code: No immediate attention required Primary Interpreting Staff: Emmanuelle Batres MD, Chief of Imaging (Regulatory Submissions Associate ) /[facility] Encounter Notes: All associated encounter notes This section contains the clinical notes associated to the Encounter. Date/Time Encounter Note(s) Provider Source August 10, 2021 04:17 LETTERS: ANGIE REID [place] [facility] WSTR N PM LOCAL TITLE: PATIENT LETTER (T) [place] [facility] STANDARD TITLE: LETTERS DATE OF NOTE: AUGUST 10, 2021@16:17 ENTRY DATE: AUGUST 10, 2021@16:17:38 AUTHOR: ANGIE REID EXP COSIGNER: URGENCY: STATUS: COMPLETED DEPARTMENT OF [facility] Toll Free Number Primary Care Telephone Assistance can be reached at extension [phone] [facility] scheduling can be reac hed at extension [phone] [facility] scheduling can be david ched at ext [phone] [facility] [address], [place], [address] Dear , Your recent XR is below. There were no fractures or dislocations noted. This is reassuring. Date Procedure CPT Status Case # 08/10/2021 HAND 3 OR MORE VIEWS(LEFT) [id number] Veri fied 402 FINDINGS AND IMPRESSION: No acute fracture or dislocation. No significan t arthritic or degenerative changes. No focal soft tissue abno rmality. Please call if you have any questions or concern s. Sincerely, Angie Reid MD [place] Sincerely, Your Primary Care Team [facility] [address] [facility] [address] [place] [address] [place] [address] [phone] [facility] [address] [place] [address] [place] [address] [phone] [facility] [address] [facility] [address] [place] [address] [place] [address] August 10, 2021 08:56 PRIMARY CARE ATTENDING NOTE: ANGIE REID [place] [facility] WSTRN AM [facility] TITLE: PRIMARY CARE ATTENDING [facility] STANDARD TITLE: PRIMARY CARE ATTENDING NOTE DATE OF NOTE: AUGUST 10, 2021@08:56 ENTRY DATE: AUGUST 10, 2021@08:57:03 AUTHOR: ANGIE REID EXP COSIGNER: URGENCY: STATUS: COMPLETED CC: L hand pain HPI: Pt states that for the past two weeks he has had pain w/ use. Denies specific injury. Pt points to dorsal aspect of L hand ove r carpal/metacarpal area. Pt states pain feels stabbing pain. Denies n/t. Pt states that he has normal ROM and strength in hand until the pain comes on. De nies skin changes. Pt states the pain is intermittent w/ pain. Pt states the pain will be an 8 when it occurs. But is a 0. Aggravating - States that pu shing up to get out of a chair, taking boots off, opening a jar will make it hurt. Alleviating - Not using it. Pt has not tried taking anything for t he pain. Pt denies h/o prior injury to hand. Was seen by prior RA specialist, and was r/o'd. ROS: As per HPI; otherwise, negative or not pert inent. Active Medical Problems: Active problems - Computerized Problem List is t he source for the followin. Diarrhea 2. Hyperlipidemia 3. Depersonalization disorder 4. Joint pain 5. Reduced libido 6. Erectile dysfunction 7. Adult screening status 04/12/2019 - Pre op sc reening EKG- NSR/ cxr - neg 8. Chronic post-[facility] stress [facility] Reviewed 9. Depressive disorder Reviewed 10. Intermittent explosive disorder Reviewed 11. Hypersomnia 12. Low back pain 13. Tinnitus 14. Alcohol abuse (SNOMED CT [id number]) Meds: Active Outpatient Medications (including S upplies): SILDENAFIL CITRATE 100MG TAB TAKE ONE TABLET BY MOUTH ONCE ACTIVE DAILY NEEDED TAKE 1 HOUR PRIOR TO SEXUAL A CTIVITY No Active Remote Medications for this patient Allergies: Patient has answered NKA Physical Exam: Wt: 221 lb [100.24 kg] ( 08:17) Date Vital Measurement Qualifiers 08/10/2021 08:17 Temp F (C) 97 (36.1) Pulse 72 Respir 20 BP 120/75 Wt lbs (kg)[BMI] 221 (100.24)[32*] Pain 7 POx (L/Min)(%) 97 At Rest Physical Exam: General: Pt is AAO in NAD. No lumps/bumps on ne ck. Normal ROM neck. HEENT: NCAT, EOMI-B, no scleral icterus. Grossly normal hearing. Normal ROM neck Skin: No grossly visible abnormalities on expose d surfaces. CV: In NAD w/ grossly normal peripheral perfusio n. Resp: Normal WOB. No grossly audible wheezing. N o perioral cyanosis Neuro: CN II-XII grossly intact BL. No grossly f ocal deficits. Psych: Appropriate mood/behaviour for situation. L hand: No swelling, discolouration. Pt has norm al ROM throughout all ranges. Pt has 5/5 strength against resistance w / flexion/extension of wrist. 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 R hand: Of note, pt is weari ng a splint on R hand/wrist. He states that this is for wrist issues that he is getting f/u for at a [facility] facility. A/P: L hand pain and weakness -XR of L hand ordered -Will consult OT -Pt advised on APAP/IBU PRN as directed, especia lly to take prior to known activity to prevent pain. Time spent with patient: 20 minutes Medication Reconciliation: Outpatient: Has the patient been taking medications as docu mented in the EMLR? No: Discrepencies were identified. See below. Essential Medication List for Review used to [...] discontinued in the past 90 days. - Discrepancies were identified, addressed, and discussed with the patient/caregiver at this encounter. - All changes in medications, including all non -VA/Herbal/OTC medications were entered into CPRS. - If there were any medications the patient nicolette uld no longer take, they were discontinued. D/C'd meds: Pt states he is no longer takind si ldenafil - The patient/caregiver was instructed to updat e this list, discard old lists, and take this list to the next appointme nt, whether with a VA or non-VA provider. /es/ ANGIE REID MD [place] PHYSICIAN Signed: 08/10/2021 09:14
--- OUTSIDE RECORDS SUMMARY | 2021-12-31 15:58 | XMS_ITS | Encounter Summary ---
:1990 Author Organization Department [facility] rs Address [address] [place] [address] Support Name Relationship Address Phone RESHMA BARROW Unavailable [address] [place] [address] RESHMA BARROW Unavailable [address] [place] [address] Selected Encounter This section includes the information on record at [place] for the Encounter. Date/Time Encounter Type Encounter Reason Provider Source Description May 08, 2021 10:49 Outpatient PRIMARY NITIN RENDON AM Encounter CARE/MEDICINE DHRUV Juan Jose Encounter Template Text not used by [place] Plan of Treatment: Future Appointments (+ 6 months) and Future Tests (+/- 45 days) The Plan of Treatment section includes future care activities for the patient from all [place] treatmentfacilities. This section includes future appointments and future orders which are active, pending orscheduled.Future Appointments This section includes appointments that were scheduled to occur 6 months from the date of the Encounter, up to a maximum of 20 appointments. The data comes from all [place] treatment facilities. Appointment Date/Time Appointment Type Appointment Facili ty Name May 09, 2021 12:15 PM AMBULATORY - MEDICINE [place] [facility] Jun 04, 2021 12:00 PM AMBULATORY - MEDICINE [place] [facility] [facility] August 10, 2021 08:15 AM AMBULATORY - MEDICINE [place] [facility] August 10, 2021 08:45 AM AMBULATORY - MEDICINE [place] [facility] August 10, 2021 09:30 AM AMBULATORY - NONE [place] [facility] August 14, 2021 08:30 AM AMBULATORY - MEDICINE [place] [facility] August 28, 2021 11:00 AM AMBULATORY - REHAB MEDICINE [place] [facility] [facility] Sep 13, 2021 10:00 AM AMBULATORY - MEDICINE [place] [facility] Sep 21, 2021 08:00 AM AMBULATORY - MEDICINE [place] CN[facility] W[facility] M [facility] Social History: Smoking Status (Most current) and Tobacco Use (All prior to encounter date) This section includes the most current, and the historical, smoking and tobacco-related health factors from the [place] facility where the Encounter took place.Current Smoking Status This section includes the most current smoking, or tobacco-related health factor, from the [place] facility where the Encounter took place. Date/Time Current Smoking Status Comment Facility August 03, 2020 02:00 PM VA-TOBACCO USER EVERY DAY [place] [facility] Tobacco Use History This section includes a history of the smoking, or tobacco- related health factors, that were collected on or before the date of the Encounter. The data comes from the [place] facility where the Encounter took place. 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 [facility] [place] [facility] August 03, 2020 02:00 PM VA-TOBACCO USE MED NO VA C [facility]TRL [place] [facility] August 03, 2020 02:00 PM VA-TOBACCO USE WI 30 MIN V A CNTRL WSTRN OF [place] [facility] August 03, 2020 02:00 PM VA-TOBACCO USER EVERY DAY [facility] [place] [facility] August 10, 2019 01:26 PM VA-TOBACCO NEVER USED VA C NTRL [place] [facility] Jul 15, 2018 03:43 PM VA-TOBACCO FORMER USER [facility] [place] [facility] Jul 15, 2018 03:43 PM VA-TOBACCO QUIT 1 TO < 5 [facility] August 22, 2017 03:08 PM QUIT TOBACCO USE 1-7 VA CN TRL WSTRN YEARS AGO [place] [facility] August 22, 2017 03:08 PM V1-QUIT TOBACCO USE > 1 VA CNTRL WSTRN YEAR AGO [facility] Dec 31, 2016 01:45 PM QUIT TOBACCO USE IN PAST V A CNTRL WSTRN YEAR quit 11/21/16 [facility] Nov 20, 2016 08:15 PM TOBACCO INPATIENT VA CN[facility]L WSTR[facility] DECLINES MEDS [facility] Jun 26, 2016 07:05 AM CURRENT SMOKER [facility] [place] [facility] Jun 26, 2016 07:05 AM V1-PT NOT INTERESTED IN VA CNTRL WSTRN QUIT [facility]ACCO [facility] Feb 28, 2014 01:16 PM CURRENT SMOKER VA CNTRL W STRN < 1 PP week [facility] Feb 28, 2014 01:16 PM V1-PT DECLINES REF TO VA C NTRL WSTRN [facility]ACCO [facility]ESS [facility] Feb 28, 2014 01:16 PM V1-PT DECLINES TOBACCO VA CNTRL WSTRN CESSATION MEDS [facility] Feb 28, 2014 01:16 PM V1-PT NOT INTERESTED IN VA CNTRL WSTRN QUIT TOBACCO USE [facility] August 17, 2013 09:43 AM V1-PT DECLINES REF TO VA C NTRL WSTRN TOBACCO CESS PR[facility] August 17, 2013 09:43 AM V1-PT DECLINES TOBACCO VA CNTRL WSTRN CESSATION MEDS [facility] August 17, 2013 09:43 AM V1-PT THINKING ABOUT QUIT VA CNTRL WSTRN TOBACCO USE [facility] Jan 28, 2013 09:57 AM CURRENT SMOKER [facility] Jan 28, 2013 09:57 AM V1-PT DECLINES REF TO VA C NTRL WSTRN TOBACCO CESS PR[facility] Jan 28, 2013 09:57 AM V1-PT DECLINES TOBACCO VA CNTRL WSTRN CESSATION MEDS [facility] Jan 28, 2013 09:57 AM V1-PT NOT INTERESTED IN VA CNTRL WSTRN QUIT TOBACCO USE [facility] Oct 18, 2011 02:45 PM QUIT TOBACCO USE IN PAST V A CNTRL WSTRN YEAR [facility] Oct 18, 2011 12:56 PM CURRENT SMOKER VA CNTRL W STRN half pack a week [facility] Encounter Notes: All associated encounter notes This section contains the clinical notes associated to the Encounter. Date/Time Encounter Note(s) Provider Source May 08, 2021 10:49 AM PRIMARY CARE SECURE MESSAGING: NATALIE RENDON [place] CN[place] WSTR[place] LOCAL TITLE: PRIMARY CARE SECURE MESSAGING LIOR [facility] STANDARD TITLE: PRIMARY CARE SECURE MESSAGING DATE OF NOTE: MAY 08, 2021@10:49:51 ENTRY DATE: MAY 08, 2021@10:49:51 AUTHOR: NITIN RENDON EXP COSIGNER: URGENCY: STATUS: COMPLETED PRIMARY CARE SECURE MESSAGING Has ADDENDA * ------Original Message Sent: 05/08/2021 09:47 AM From: DRAGAN BARROW To: Valeria LUQUE_PRIMARY CARE_[facility] Subject: Pain medication Hi I was wondering is there anyway that I could be prescribed pain medicine for my wrist while it's broken. I have an appointment tomorrow with the filter pulp washer and said if I need surgery that would most likel y be happening Friday. The prescription I was given from the hospital does not have enough pain meds to last me until then, is there any that you could prescribe and I could pick pack worker here at the hospital, Thank you /JOHN Campbell REGISTERED NURSE Signed: 05/08/2021 10:49 Receipt Acknowledged By: 05/08/2021 12:30 /CASSIUS Morejon DNP, CNL Primary Care Nurse Practitioner 05/08/2021 ADDENDUM STATUS: COMPLETED PDMP checked no new RX for pain medication /martita/ JOHN CALDERA REGISTERED NURSE Signed: 05/08/2021 10:54 Receipt Acknowledged By: 05/08/2021 11:07 /CASSIUS Morejon DNP, CNL Primary Care Nurse Practitioner 05/08/2021 ADDENDUM STATUS: COMPLETED Awaiting records to see what was provided. /PAGE Morejon DNP, SLICK Primary Care Nurse Practitioner Signed: 05/08/2021 12:31
--- OUTSIDE RECORDS SUMMARY | 2021-12-31 15:58 | XMS_ITS ---
:1990 Author Organization Department [facility] rs Address [address] [place] [id number] Support Name Relationship Address Phone RESHMA BARROW Unavailable [address] [place] [address] RESHMA BARROW Unavailable [address] [place] [address] Selected Encounter This section includes the information on record at [place] for the Encounter. Date/Time Encounter Type Encounter Reason Provider Source Description Jun 28, 2021 08:26 Outpatient PRIMARY NITIN RENDON AM Encounter CARE/MEDICINE DHRUV Juan Jose Encounter Template Text not used by [place] Plan of Treatment: Future Appointments (+ 6 months) and Future Tests (+/- 45 days) The Plan of Treatment section includes future care activities for the patient from all [place] treatmentfacilities. This section includes future appointments and future orders which are active, pending orscheduled.Future Appointments This section includes appointments that were scheduled to occur 6 months from the date of the Encounter, up to a maximum of 20 appointments. The data comes from all [place] treatment facilities. Appointment Date/Time Appointment Type Appointment Facili ty Name August 10, 2021 08:15 AM AMBULATORY [place]ICINE [place] [facility] [place] [facility] August 10, 2021 08:45 AM AMBULATORY - [place]ICINE [place] [facility] [place] [facility] August 10, 2021 09:30 AM AMBULATORY - NONE [place] [facility] [place] [facility] August 14, 2021 08:30 AM AMBULATORY - [place]ICINE [place] [facility] [place] [facility] August 28, 2021 11:00 AM AMBULATORY - REHAB MEDICINE [place] [facility] [place] [facility] Sep 13, 2021 10:00 AM AMBULATORY - MEDICINE [place] [facility] [place] [facility] Sep 21, 2021 08:00 AM [facility] Nov 16, 2021 09:30 AM AMBULATORY - MEDICINE [place] [facility] Social History: Smoking Status (Most current) and Tobacco Use (All prior to encounter date) This section includes the most current, and the historical, smoking and tobacco-related health factors from the [place] facility where the Encounter took place.Current Smoking Status This section includes the most current smoking, or tobacco-related health factor, from the [place] facility where the Encounter took place. Date/Time Current Smoking Status Comment Facility August 03, 2020 02:00 PM VA-TOBACCO USER EVERY DAY [place] [facility] Tobacco Use History This section includes a history of the smoking, or tobacco- related health factors, that were collected on or before the date of the Encounter. The data comes from the [place] facility where the Encounter took place. Date/Time Smoking Status/Tobacco Comment Facility Use August 03, 2020 02:00 PM VA-TOBACCO USE ADVICE [place] [facility] 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 August 03, 2020 02:00 PM VA-TOBACCO USE MED NO [place] [facility] August 03, 2020 02:00 PM VA-TOBACCO USE WI 30 MIN V [facility] August 03, 2020 02:00 PM VA-TOBACCO USER EVERY DAY [place] [facility] [place] [facility] August 10, 2019 01:26 PM VA-TOBACCO NEVER USED [place] [facility] [place] [facility] Jul 15, 2018 03:43 PM VA-TOBACCO FORMER USER [facility] [place] [facility] Jul 15, 2018 03:43 PM VA-TOBACCO QUIT 1 TO < 5 [facility] August 22, 2017 03:08 PM QUIT TOBACCO USE 1-7 [facility] August 22, 2017 03:08 PM V1-QUIT TOBACCO USE > 1 [facility] Dec 31, 2016 01:45 PM QUIT TOBACCO USE IN PAST V A CNTRL WSTRN YEAR quit 11/21/16 [facility] Nov 20, 2016 08:15 PM TOBACCO INPATIENT [facility] [place] [facility] Jun 26, 2016 07:05 AM CURRENT SMOKER [facility] [place] [place] [facility] Jun 26, 2016 07:05 AM V1-PT NOT INTERESTED IN [facility]IT [facility] Feb 28, 2014 01:16 PM CURRENT SMOKER [facility] W [facility] < 1 PP week [facility] Feb 28, 2014 01:16 PM V1-PT DECLINES REF TO [facility] C [facility]ACCO [facility] Feb 28, 2014 01:16 PM V1-PT DECLINES TOBACCO [facility] Feb 28, 2014 01:16 PM V1-PT NOT INTERESTED IN [facility] QUIT [facility] August 17, 2013 09:43 AM V1-PT DECLINES REF TO [facility] C [facility]ACCO [facility] August 17, 2013 09:43 AM V1-PT DECLINES TOBACCO [facility] CESSATION MEDS [facility] August 17, 2013 09:43 AM V1-PT THINKING ABOUT QUIT [facility] Jan 28, 2013 09:57 AM CURRENT SMOKER [facility] Jan 28, 2013 09:57 AM V1-PT DECLINES REF TO VA C N[facility]L W[facility]ACCO [facility] Jan 28, 2013 09:57 AM V1-PT DECLINES TOBACCO [facility] Jan 28, 2013 09:57 AM V1-PT NOT INTERESTED IN VA [facility] QUIT TOBACCO USE [facility] Oct 18, 2011 02:45 PM QUIT TOBACCO USE IN PAST V A CNTRL WSTRN YEAR [facility] Oct 18, 2011 12:56 PM CURRENT SMOKER [facility] half pack a week [facility] Encounter Notes: All associated encounter notes This section contains the clinical notes associated to the Encounter. Date/Time Encounter Note(s) Provider Source Jun 28, 2021 08:26 AM PRIMARY CARE SECURE MESSAGING: JUSTICENATALIE [place] [facility] LOCAL TITLE: PRIMARY CARE SECURE MESSAGING LIOR RAMOS [facility] STANDARD TITLE: PRIMARY CARE SECURE MESSAGING DATE OF NOTE: JUN 28, 2021@08:26 ENTRY DATE: JUN 28, 2021@09:26:48 AUTHOR: NITIN RENDON EXP COSIGNER: URGENCY: STATUS: COMPLETED PRIMARY CARE SECURE MESSAGING Has ADDENDA * ------Original Message Sent: 06/28/2021 07:48 AM ET From: DRAGAN BARROW To: Valeria MOCTEZUMA_PRIMARY CARE_[facility] Subject: General:Brace My cast was just take it off yesterday f or my broken wrist and the doctor said my wrist is still broken and wanted to know if I could get a brace from prosthetics [place] at the [place]. [place] at the [place] all day today is there any chance I could get a brace thank you. /martita/ JOHN CALDERA REGISTERED NURSE Signed: 06/28/2021 09:26 Receipt Acknowledged By: 06/28/2021 11:26 /martita/ CASSIUS Flowers DNP, [facility] Primary Care Nurse Practitioner 06/28/2021 ADDENDUM STATUS: COMPLETED please order brace for vet to potato picker today /malik RENDON RN MSN REGISTERED NURSE Signed: 06/28/2021 09:50 06/28/2021 ADDENDUM STATUS: COMPLETED I have placed a consult to OT. /martita/ Catracho Moctezuma DNP, PEBBLES-NATALIE, SLICK Primary Care Nurse Practitioner Signed: 06/28/2021 11:28 Receipt Acknowledged By: * AWAITING SIGNATURE * NITIN RENDON
--- OUTSIDE RECORDS SUMMARY | 2021-12-31 15:58 | XMS_ITS ---
:1990 Author Organization Department [facility] rs Address [address] [place] [id number] Support Name Relationship Address Phone RESHMA BARROW Unavailable [address] [place] [address] RESHMA BARROW Unavailable [address] [place] [address] Selected Encounter This section includes the information on record at [place] for the Encounter. Date/Time Encounter Type Encounter Description Reason Provider Source May 07, 2021 11:46 Outpatient Encounter TELEPHONE TRIAGE AM [facility] Encounter Template Text not used by [place] Plan of Treatment: Future Appointments (+ 6 months) and Future Tests (+/- 45 days) The Plan of Treatment section includes future care activities for the patient from all [place] treatmentfacilities. This section includes future appointments and [...] - MEDICINE [place] [facility] [facility] Jun 04, 2021 12:00 PM AMBULATORY - MEDICINE [place] [facility] [place] [facility] August 10, 2021 08:15 AM AMBULATORY - MEDICINE [place] [facility] [facility] August 10, 2021 08:45 AM AMBULATORY - MEDICINE [place] [facility] [facility] August 10, 2021 09:30 AM AMBULATORY - NONE [facility] [place] [facility] August 14, 2021 08:30 AM AMBULATORY - MEDICINE [place] [facility] [facility] August 28, 2021 11:00 AM AMBULAT[facility] - [facility] Sep 13, 2021 10:00 AM AMBULATORY - [facility] Sep 21, 2021 08:00 AM AMBULATORY - MEDICINE [place] [facility] M [facility] Social History: Smoking Status (Most current) and [...] VA-TOBACCO USER EVERY DAY [place] [facility] Tobacco Use History This section includes a history of the smoking, or tobacco- related health factors, that were collected on or before the date of the Encounter. The data comes from the [place] facility where the Encounter took place. 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 [facility] August 03, 2020 02:00 PM VA-TOBACCO USE MED NO [facility] [place] [facility] August 03, 2020 02:00 PM VA-TOBACCO USE WI 30 MIN V [facility] August 03, 2020 02:00 PM VA-TOBACCO USER EVERY DAY [place] [facility] [facility] August 10, 2019 01:26 PM VA-TOBACCO NEVER USED [facility] Jul 15, 2018 03:43 PM VA-TOBACCO FORMER USER [facility] [facility] Jul 15, 2018 03:43 PM VA-TOBACCO QUIT 1 TO < 5 V [facility] August 22, 2017 03:08 PM QUIT TOBACCO USE 1-7 [facility] August 22, 2017 03:08 PM V1-QUIT TOBACCO USE > 1 VA [facility] YEAR AGO [facility] Dec 31, 2016 01:45 PM QUIT TOBACCO USE IN PAST V A CNTRL WSTRN YEAR quit 11/21/16 [facility] Nov 20, 2016 08:15 PM TOBACCO INPATIENT [facility] Jun 26, 2016 07:05 AM CURRENT SMOKER [facility] [place] [facility] Jun 26, 2016 07:05 AM V1-PT NOT INTERESTED IN [facility] QUIT [place]BACCO USE [place] [facility] Feb 28, 2014 01:16 PM CURRENT SMOKER [facility] W STR[facility] < 1 PP week [facility] Feb 28, 2014 01:16 PM V1-PT DECLINES REF TO [facility] Feb 28, 2014 01:16 PM V1-PT DECLINES TOBACCO [facility] CESSATION MEDS [facility] Feb 28, 2014 01:16 PM V1-PT NOT INTERESTED IN [facility] QUIT [facility]ACCO [facility] August 17, 2013 09:43 AM V1-PT DECLINES REF TO [facility] C [facility] August 17, 2013 09:43 AM V1-PT DECLINES TOBACCO [facility] August 17, 2013 09:43 AM V1-PT THINKING ABOUT QUIT [facility]ACCO [facility] Jan 28, 2013 09:57 AM CURRENT SMOKER [facility] Jan 28, 2013 09:57 AM V1-PT DECLINES REF TO [facility] C [facility] Jan 28, 2013 09:57 AM V1-PT DECLINES TOBACCO [facility] Jan 28, 2013 09:57 AM V1-PT NOT INTERESTED IN [facility] QUIT [facility]BACCO [facility] Oct 18, 2011 02:45 PM QUIT TOBACCO USE IN PAST V A CNTRL WSTRN YEAR [facility] Oct 18, 2011 12:56 PM CURRENT SMOKER VA CNTRL W STRN half pack a week [facility] Encounter Notes: All associated encounter notes This section contains the clinical notes associated to the Encounter. Date/Time Encounter Note(s) Provider Source May 07, 2021 11:46 AM NURSING TELEPHONE ENCOUNTER TRIAGE NOTE: KLEBER ZHANG [facility] LOCAL TITLE: [facility] CLINICAL CONTACT CENTER [facility] STANDARD TITLE: NURSING TELEPHONE ENCOUNTER TRIA GE NOTE DATE OF NOTE: MAY 07, 2021@11:46:09 ENTRY DATE: MAY 07, 2021@11:49:44 AUTHOR: KLEBER KAMARA EXP COSIGNER: URGENCY: STATUS: COMPLETED [facility] 1 CLINICAL CONTACT CENTER Has ADDENDA PARENT called in for DRAGAN CORREA ([id number]) . The following identifiers were used to verify th is patient: . SSN. Other: Arun. Contact Type of call: ADMINISTRATIVE. Caller Response: ADM CALL RESOLVED Caller Area: [facility] Provider Info: LOCAL - [facility] ([id number]) PACT: NO PACT 7 (Focus: Primary Care Only) Primary Care Provider: Catracho Moctezuma PH ONE:[phone] Dishwasher Busser: Jerica Peraza PHONE :[phone] Clinical Associate: Eber Ruano PHONE:[phone] Salon Sales Consultant: Randell Ko PACT Clinical Pharmacist: Yesenia Gonzalez PHONE:[phone] Clinical POC: Dishwasher Busser Jerica Peraza PHONE:[phone] Administrative POC: Salon Sales Consultant Randell Ko MH: [facility] (TC) Psychiatrist Venecia Linder Author: KLEBER KAMARA Comments: Patient fatherArun no auth on file, calling to notify PACT of missed PT appointment on 05/07/2021 du e to broken wrist that Patient had to go to ER for. Evaluation/Management Code: HC PRO PHONE CALL 5- 10 MIN ([phone]). Starting at: 05/07/2021 @ 11:46:09 Ending at: 05/07/2021 @ 11:48:24 Length: 2 minutes. Chief Complaint: Not applicable to call. Class Code: Other specified counseling. Patient's Email Address: [email or web address] KLEBER KAMARA Signed: 05/07/2021 11:49 Receipt Acknowledged By: 05/07/2021 12:45 /martita/ JERICA PERAZA RN MSN REGISTERED NURSE 05/07/2021 12:50 /es/ RANDELL KO ADVANCED POWER GENERATION TECHNICIAN 05/07/2021 ADDENDUM STATUS: COMPLETED attempted to reach by phone LM to return call /martita/ JERICA PERAZA RN MSN REGISTERED NURSE Signed: 05/07/2021 12:46 05/08/2021 ADDENDUM STATUS: COMPLETED spoke with by phone he fell on ice and fractured his right wrist displaced per the bones are not aligned he is in a splint and was told to contact DR ALESSANDRA SCOTT ( Orthopedic surgeon) [address] [place] [address] Dr Benton rodríguez will [place] consult for TODAY have requested records /martita/ JERICA PERAZA RN MSN REGISTERED NURSE Signed: 05/08/2021 08:15 Receipt Acknowledged By: 05/08/2021 08:30 /martita/ CASSIUS Flowers DNP, [place] Primary Care Nurse Practitioner 05/08/2021 ADDENDUM STATUS: COMPLETED Consult placed to ortho surg, CC group emailed. /martita/ PAGE Flowers DNP, [place] Primary Care Nurse Practitioner Signed: 05/08/2021 08:34
--- OUTSIDE RECORDS SUMMARY | 2021-12-31 15:58 | XMS_ITS | Encounter Summary ---
:1990 Author Organization Department [facility] rs Address [address] [place] [id number] Support Name Relationship Address Phone RESHMA BARROW Unavailable [address] [place] [address] RESHMA BARROW Unavailable [address] [place] [address] Selected Encounter This section includes the information on record at DC for the Encounter. Date/Time Encounter Type Encounter Description Reason Provider Source August 09, 2021 02:05 Outpatient Encounter PRIMARY CARE/MEDICINE PM IHE Encounter Template Text not used by DC Plan of Treatment: Future Appointments (+ 6 months) and Future Tests (+/- 45 days) The Plan of Treatment section includes future care activities for the patient from all DC treatmentfacilities. This section includes future appointments and future orders which are active, pending orscheduled.Future Appointments This section includes appointments that were scheduled to occur 6 months from the date of the Encounter, up to a maximum of 20 appointments. The data comes from all DC treatment facilities. Appointment Date/Time Appointment Type Appointment Facili ty Name August 10, 2021 08:15 AM AMBULATORY - MEDICINE [place] [facility] August 10, 2021 08:45 AM AMBULATORY - MEDICINE [place] [facility] August 10, 2021 09:30 AM AMBULATORY - NONE [place] [facility] August 14, 2021 08:30 AM AMBULATORY - MEDICINE [place] [facility] August 28, 2021 11:00 AM AMBULATORY - REHAB MEDICINE [place] [facility] Sep 13, 2021 10:00 AM AMBULATORY - MEDICINE [place] [facility] Sep 21, 2021 08:00 AM [facility] Nov 16, 2021 09:30 AM AMBULATORY - MEDICINE DC CNTRL WSTRN [facility] Social History: Smoking Status (Most current) and Tobacco Use (All prior to encounter date) This section includes the most current, and the historical, smoking and tobacco-related health factors from the DC facility where the Encounter took place.Current Smoking Status This section includes the most current smoking, or tobacco-related health factor, from the DC facility where the Encounter took place. Date/Time Current Smoking Status Comment Facility August 03, 2020 02:00 PM VA-TOBACCO USER EVERY DAY DC CNTRL WSTRN [facility] Tobacco Use History This section includes a history of the smoking, or tobacco- related health factors, that were collected on or before the date of the Encounter. The data comes from the DC facility where the Encounter took place. 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 [facility] August 03, 2020 02:00 PM VA-TOBACCO USE MED NO DC C [facility] August 03, 2020 02:00 PM VA-TOBACCO USE WI 30 MIN V A CNTRL WSTRN [place] [facility] August 03, 2020 02:00 PM VA-TOBACCO USER EVERY DAY VA [facility] August 10, 2019 01:26 PM VA-TOBACCO NEVER USED VA C N[facility]L [facility] Jul 15, 2018 03:43 PM VA-TOBACCO FORMER USER [facility] Jul 15, 2018 03:43 PM VA-TOBACCO QUIT 1 TO < 5 V A [facility] August 22, 2017 03:08 PM QUIT TOBACCO USE 1-7 VA CN TRL WSTRN YEARS AGO [facility] August 22, 2017 03:08 PM V1-QUIT TOBACCO USE > 1 VA CNTRL WSTRN YEAR AGO [facility] Dec 31, 2016 01:45 PM QUIT TOBACCO USE IN PAST V A CNTRL WSTRN YEAR quit 11/21/16 [facility] Nov 20, 2016 08:15 PM TOBACCO INPATIENT VA CNTRL WSTRN [facility]ES [facility]S [facility] Jun 26, 2016 07:05 AM CURRENT SMOKER [place] [facility] Jun 26, 2016 07:05 AM V1-PT NOT INTERESTED IN VA CNTRL WSTRN QUIT TOBACCO USE [facility] Feb 28, 2014 01:16 PM CURRENT SMOKER VA CNTRL W STRN < 1 PP week [facility] Feb 28, 2014 01:16 PM V1-PT DECLINES REF TO VA C NTRL WSTRN TOBACCO CESS PRGM [facility] Feb 28, 2014 01:16 PM V1-PT DECLINES TOBACCO VA CNTRL WSTRN CESSATION MEDS [facility] Feb 28, 2014 01:16 PM V1-PT NOT INTERESTED IN VA CNTRL WSTRN QUIT TOBACCO USE [facility] August 17, 2013 09:43 AM V1-PT DECLINES REF TO VA C NTRL WSTRN TOBACCO CESS PRGM [facility] August 17, 2013 09:43 AM V1-PT DECLINES TOBACCO VA CNTRL WSTRN CESSATION MEDS [facility] August 17, 2013 09:43 AM V1-PT THINKING ABOUT QUIT VA CNTRL WSTRN TOBACCO USE [facility] Jan 28, 2013 09:57 AM CURRENT SMOKER VA CNTRL W [facility] Jan 28, 2013 09:57 AM V1-PT DECLINES REF TO VA C NTRL WSTRN TOBACCO CESS PRGM [facility] Jan 28, 2013 09:57 AM V1-PT DECLINES TOBACCO VA CNTRL WSTRN CESSATION MEDS [facility] Jan 28, 2013 09:57 AM V1-PT NOT INTERESTED IN VA CNTRL WSTRN QUIT TOBACCO USE [facility] Oct 18, 2011 02:45 PM QUIT TOBACCO USE IN PAST V A CNTRL WSTRN YEAR [facility] Oct 18, 2011 12:56 PM CURRENT SMOKER VA CNTRL W STRN half pack a week [facility] Radiology Reports: +/- 30 days [...] the Encounter. The data comes from all DC treatment facilities. Date/Time Radiology Report Provider Source August 10, 2021 09:38 AM HAND 3 OR MORE VIEWS(LEFT): EMMANUELLE BATRES DC CNTRL WSTRSenait DRAGAN BARROW [facility] [id number] -[birth year] 198 9 M [facility] Exm Date: AUGUST 10, 2021@09:38 Req Phys: ANGIE REID Loc: CWM/NO/SICK C DIOMEDES KUO (Req'g Loc Img Loc: [facility] 1 Service: Unknown (Case [id number] COMPLETE) HAND 3 OR MORE VIEWS(LEFT) ( RAD Detailed) CPT:18379 Proc Modifiers : LEFT CPT Modifiers : LT LEFT SIDE Reason for Study: L hand pain Clinical History: Report Status: Verified Date Reported: AUGUST 10, 2021 Date Verified: AUGUST 10, 2021 Health Plan Manager E-Sig:/ES/Emmanuelle Batres MD Report: EXAM: Left HAND, 3 VIEWS HISTORY: pain COMPARISON: None Impression: FINDINGS AND IMPRESSION: No acute fracture or dislocation. No significa nt arthritic or degenerative changes. No focal soft tissue abno rmality. Primary Diagnostic Code: No immediate attention required Primary Interpreting Staff: Emmanuelle Batres MD, Chief of Imaging (Health Plan Manager ) /[facility] Encounter Notes: All associated encounter notes This section contains the clinical notes associated to the Encounter. Date/Time Encounter Note(s) Provider Source August 09, 2021 02:05 PM PRIMARY CARE NOTE: [facility] CNTR L WSTRN LOCAL TITLE: WALK-IN NOTE PRIMARY CARE (T) EITAN HANSON RA [facility] STANDARD TITLE: PRIMARY CARE NOTE DATE OF NOTE: AUGUST 09, 2021@14:05 ENTRY DATE: AUGUST 09, 2021@14:05:41 AUTHOR: VINAY CABALLERO EXP COSIGNER: URGENCY: STATUS: COMPLETED <====Click to Start Advanced Medical Support [place] presents to the Primary Care clinic with the following request: [ ]Medication Renewal/Refill [ ]Consultation with Team RN [ X ]Symptoms HAND ISSUES [ ]Other The [place] states they are: [ ]Waiting [ X ]Not Waiting No Walk in visit scheduled with PACT Nurse [ X ] At this encounter the [place]'s demographi cs were verified. [ X ] At this encounter the [place]'s Insurance information was verified. [ X ] At this encounter the below scheduled visi ts for the [place] were discussed and appointment reminder card wa s offered. Future appointments: 11/16/2021 09:30 CWM/NO/PAC T 7 STOPPED IN LOOKING F OR AN APPT W/PCP. HE IS HAVING MORE ISSUES WITH HIS HAND. NO APPT AVAILABLE IN THE NEAR FUTURE. AMSA ADVISED TO COME TO SICK CALL. WILL COME TO SICK CALL TOMORR OW. /es/ EITAN REICH Advanced Canal Equipment Mechanic Signed: 08/09/2021 14:16
--- OUTSIDE RECORDS SUMMARY | 2021-12-31 15:58 | XMS_ITS ---
:1990 Author Organization Department [facility] rs Address [address] [place] [address] Support Name Relationship Address Phone RESHMA BARROW Unavailable [address] [place] [address] RESHMA BARROW Unavailable [address] [place] [address] Selected Encounter This section includes the information on record at [place] for the Encounter. Date/Time Encounter Type Encounter Reason Provider Source Description August 10, 2021 07:21 Outpatient PRIMARY NAYELI HOGAN AM Encounter CARE/MEDICINE IHE Encounter Template Text not used by [place] Plan of Treatment: Future Appointments (+ 6 months) and Future Tests (+/- 45 days) The Plan of Treatment section includes future care activities for the patient from all [place] treatmentfacilities. This section includes future appointments and future orders which are active, pending orscheduled.Future Appointments This section includes appointments that were scheduled to occur 6 months from the date of the Encounter, up to a maximum of 20 appointments. The data comes from all [place] treatment facilities. Appointment Date/Time Appointment Type Appointment Facili ty Name August 14, 2021 08:30 AM AMBULATORY - MEDICINE [place] [facility] August 28, 2021 11:00 AM AMBULATORY - REHAB MEDICINE [place]TR [place] [facility] Sep 13, 2021 10:00 AM AMBULATORY MEDICINE [place] [facility] Sep 21, 2021 08:00 AM AMBULATORY MEDICINE [place] [facility] Nov 16, 2021 09:30 AM AMBULATORY [facility] Vital Signs: All taken on the encounter date This section contains inpatient and outpatient Vital Signs collected on the date of the Encounter. Date/Time Temperature Pulse Blood Respiratory SP02 Pain Height Weight Iker dy Source Pressure Rate Mass Index August 10 in 221 lb 32 [place] 2021 11:41 [place] [facility] August 10 F 72 120/75 20 /min 97 % 7 221 lb 32 [place] 2021 08:17 /min mm[Hg] CN[place] AM [place] [facility] Social History: Smoking Status (Most current) and Tobacco Use (All prior to encounter date) This section includes the most current, and the historical, smoking and tobacco-related health factors from the [place] facility where the Encounter took place.Current Smoking Status This section includes the most current smoking, or tobacco-related health factor, from the [place] facility where the Encounter took place. Date/Time Current Smoking Status Comment Facility August 10, 2021 08:15 AM VA-TOBACCO QUIT < 1 YEAR V A CNTRL [place] [facility] Tobacco Use History This section includes a history of the smoking, or tobacco- related health factors, that were collected on or before the date of the Encounter. The data comes from the [place] facility where the Encounter took place. 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 [facility]L [place] [facility] August 03, 2020 02:00 PM VA-TOBACCO USE MED NO VA C NTRL [place] [facility] August 03, 2020 02:00 PM VA-TOBACCO USE WI 30 MIN V A CNTRL WSTRN OF [place] [facility] August 03, 2020 02:00 PM VA-TOBACCO USER EVERY DAY VA CNTRL [place] [facility] August 10, 2019 01:26 PM VA-TOBACCO NEVER USED VA C NTRL [place] [facility] Jul 15, 2018 03:43 PM VA-TOBACCO FORMER USER VA CNTRL [place] [facility] Jul 15, 2018 03:43 PM VA-TOBACCO QUIT 1 TO < 5 V A CNTRL WSTRN YRS [facility] August 22, 2017 03:08 PM QUIT TOBACCO USE 1-7 [facility] August 22, 2017 03:08 PM V1-QUIT TOBACCO USE > 1 VA CNTRL WSTRN YEAR AGO [facility] Dec 31, 2016 01:45 PM QUIT TOBACCO USE IN PAST V A CNTRL WSTRN YEAR quit 11/21/16 [facility] Nov 20, 2016 08:15 PM TOBACCO INPATIENT VA CN[facility]L [facility] Jun 26, 2016 07:05 AM CURRENT SMOKER [facility] Jun 26, 2016 07:05 AM V1-PT NOT INTERESTED IN VA CNTRL WSTRN QUIT TOBACCO USE [facility] Feb 28, 2014 01:16 PM CURRENT SMOKER VA CNTRL W STRN < 1 PP week [facility] Feb 28, 2014 01:16 PM V1-PT DECLINES REF TO VA C NTRL WSTRN TOBACCO CESS [facility] Feb 28, 2014 01:16 PM V1-PT DECLINES TOBACCO VA CNTRL WSTRN CESSATION MEDS [facility] Feb 28, 2014 01:16 PM V1-PT NOT INTERESTED IN VA CNTRL WSTRN QUIT TOBACCO USE [facility] August 17, 2013 09:43 AM V1-PT DECLINES REF TO VA C NTRL WSTRN TOBACCO CESS [facility] August 17, 2013 09:43 AM V1-PT DECLINES TOBACCO VA CNTRL WSTR[facility] August 17, 2013 09:43 AM V1-PT THINKING ABOUT QUIT VA CNTRL WSTRN TOBACCO USE [facility] Jan 28, 2013 09:57 AM CURRENT SMOKER VA [facility] Jan 28, 2013 09:57 AM V1-PT DECLINES REF TO VA C NTRL WSTRN TOBACCO CESS [facility] Jan 28, 2013 09:57 AM V1-PT DECLINES TOBACCO VA CNTRL WSTRN CESSATION MEDS [facility] Jan 28, 2013 09:57 AM V1-PT NOT INTERESTED IN VA CNTRL WSTRN QUIT TOBACCO USE [facility] Oct 18, 2011 02:45 PM QUIT TOBACCO USE IN PAST V A CNTRL WSTRN YEAR [facility] Oct 18, 2011 12:56 PM CURRENT SMOKER [place] CNTRL W STRN half pack a week [facility] Radiology Reports: +/- 30 days of [...] the Encounter. The data comes from all [place] treatment facilities. Date/Time Radiology Report Provider Source August 10, 2021 09:38 AM HAND 3 OR MORE VIEWS(LEFT): EMMANUELLE BATRES [facility] DRAGAN BARROW [facility] [id number] -MAY [phone] M [facility] Exm Date: AUGUST 10, 2021@09:38 Req Phys: ANGIE REID Pat Loc: CWM/NO/SICK C ALL (Req'g Loc Img Loc: [place] 1 Service: Unknown (Case [id number] COMPLETE) HAND 3 OR MORE VIEWS(LEFT) ( RAD Detailed) CPT:21670 Proc Modifiers : LEFT CPT Modifiers : LT LEFT SIDE Reason for Study: L hand pain Clinical History: Report Status: Verified Date Reported: AUGUST 10, 2021 Date Verified: AUGUST 10, 2021 Thoracic Medicine Specialist E-Sig:/ES/Emmanuelle Batres MD Report: EXAM: Left HAND, 3 VIEWS HISTORY: pain COMPARISON: None Impression: FINDINGS AND IMPRESSION: No acute fracture or dislocation. No significan t arthritic or degenerative changes. No focal soft tissue abno rmality. Primary Diagnostic Code: No immediate attention required Primary Interpreting Staff: Emmanuelle Batres MD, Chief of Imaging (Thoracic Medicine Specialist ) /[facility] Encounter Notes: All associated encounter notes This section contains the clinical notes associated to the Encounter. Date/Time Encounter Note(s) Provider Source August 10, 2021 07:21 AM PRIMARY CARE SECURE MESSAGING: EVAN HOGAN [facility] LOCAL TITLE: PRIMARY CARE SECURE MESSAGING [place] [facility] STANDARD TITLE: PRIMARY CARE SECURE MESSAGING DATE OF NOTE: AUGUST 10, 2021@07:21 ENTRY DATE: AUGUST 10, 2021@08:21:56 AUTHOR: NAYELI HOGAN EXP COSIGNER: URGENCY: STATUS: COMPLETED ------Original Message Sent: 08/07/2021 06:53 PM ET From: DRAGAN BARROW To: Valeria LUQUE_PRIMARY CARE_[facility] Subject: Appointment:Left hand I would like an appointment for my left hand. It's been starting to hurt to the point I need help taking my boots off. The pain is a 10 when it hurts. Thank you ------Original Message Sent: 08/10/2021 08:21 AM ET From: NAYELI HOGAN To: DRAGAN BARROW Subject: Appointment:Left hand Hello It looks like you came to sick call today for ev aluation Take Care Nayeli Hogan RN /martita/ Nayeli Hogan RN, BSN PACT TEAM RN Signed: 08/10/2021 08:21
--- OUTSIDE RECORDS SUMMARY | 2021-12-31 15:59 | XMS_ITS | Encounter Summary ---
:1990 Author Organization Department [facility] rs Address [address] [place] [id number] Support Name Relationship Address Phone RESHMA BARROW Unavailable [address] [place] [address] RESHMA BARROW Unavailable [address] [place] [address] Selected Encounter This section includes the information on record at [place] for the Encounter. Date/Time Encounter Type Encounter Description Reason Provider Source Apr 06, 2021 11:16 Outpatient Encounter PRIMARY CARE/MEDICINE AM E Encounter Template Text not used by MS Plan of Treatment: Future Appointments (+ 6 months) and Future Tests (+/- 45 days) The Plan of Treatment section includes future care activities for the patient from all [place] treatmentfacilities. This section includes future appointments and future orders which are active, pending orscheduled.Future Appointments This section includes appointments that were scheduled to occur 6 months from the date of the Encounter, up to a maximum of 20 appointments. The data comes from all [place] treatment facilities. Appointment Date/Time Appointment Type Appointment Facili ty Name Apr 27, 2021 11:30 AM AMBULATORY - MEDICINE [place] [facility] [place] [facility] May 07, 2021 08:15 AM AMBULATORY - REHAB MEDICINE [facility] [place] [facility] May 09, 2021 12:15 PM AMBULATORY - MEDICINE [place] [facility] [place] [facility] Jun 04, 2021 12:00 PM AMBULATORY - MEDICINE [place] [facility] [place] [facility] August 10, 2021 08:15 AM AMBULATORY - MEDICINE [place] [facility] [place] [facility] August 10, 2021 08:45 AM AMBULATORY - MEDICINE [place] [facility] [place] [facility] August 10, 2021 09:30 AM [facility] [place] [facility] August 14, 2021 08:30 AM [facility] August 28, 2021 11:00 AM [facility]BULAT[facility] - [facility] Sep 13, 2021 10:00 AM [facility] Sep 21, 2021 08:00 AM [facility] Lab Results: +/- 30 days of the encounter This section includes the Chemistry and Hematology Lab Results on record with [place] for the patient. Radiology Reports and Pathology Reports are provided separately, in subsequent sections.Lab Results This section contains the Chemistry/Hematology Results that were resulted 30 days before or 30 daysafter the date of the Encounter. Date/Time Source Result Type Result - Unit Interpretation Reference Range Comment Mar 26, [facility] COVID-19 Specimen Type: NASOPHARYNX 2020 08:30 [facility] SCREENING Comment: Test p erformed on [place] Genexpert at [facility]. This test is authorized for emergency use only. It is authorized for the duration of the declaration that circumstances exist just AM PANEL ifying the autho rization for detection and/or diagnosis of COVID-19. Unless the authorization is terminated or revoked sooner. This test cannot rule out diseases caused by other bacterial or viral patho (CEPFantasyHubID) gens. False nega tive results may occur if virus is present at levels below the analytical limit of detection. Negative results do not preclude SARS-CoV-2, infection and should not be used as the sole ba sis for treatmen t or other patient management decisions. Viral nucleic acid may persist in vivo, independent of virus viability. Detection of analyte target(s) does not imply that the corresponding viru s(es) are infect ious or are the causative agents for clinical symptoms. Cepheid FLUVID: HCPs: https://www.fda.gov/media/012289/download Patients: https://www.fda.gov/media/764559/download Ordering Provid er: EMORY SAMANIEGO Report Released Date/Time: Mar 25, 2021 05:11 PM Reporting Lab: [place] [facility] [place] [facility] [address] [facility] [address] Performing Lab: [place] [facility] [place] [facility] [address] [facility] [address] COVID-19 SCR (CEPHEID) N Negativ e Social History: Smoking Status (Most current) and Tobacco Use (All prior to encounter date) This section includes the most current, and the historical, smoking and tobacco-related health factors from the [place] facility where the Encounter took place.Current Smoking Status This section includes the most current smoking, or tobacco-related health factor, from the [place] facility where the Encounter took place. Date/Time Current Smoking Status Comment Facility August 03, 2020 02:00 PM VA-TOBACCO USE WI 30 MIN V A CNTRL [place] [facility] Tobacco Use History This section includes a history of the smoking, or tobacco- related health factors, that were collected on or before the date of the Encounter. The data comes from the [place] facility where the Encounter took place. 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 [facility] [place] [facility] August 03, 2020 02:00 PM VA-TOBACCO USE MED NO VA C NTRL [place] [facility] August 03, 2020 02:00 PM VA-TOBACCO USE WI 30 MIN [facility] August 03, 2020 02:00 PM VA-TOBACCO USER EVERY DAY [facility] [place] [facility] August 10, 2019 01:26 PM VA-TOBACCO NEVER USED VA C NTRL [place] [facility] Jul 15, 2018 03:43 PM VA-TOBACCO FORMER USER [facility] [place] [facility] Jul 15, 2018 03:43 PM VA-TOBACCO QUIT 1 TO < 5 V A CNTRL W[facility] August 22, 2017 03:08 PM QUIT TOBACCO USE 1-7 VA CN TRL WSTRN [facility] August 22, 2017 03:08 PM V1-QUIT TOBACCO USE > 1 VA CNTRL WSTRN YEAR AGO [facility] Dec 31, 2016 01:45 PM QUIT TOBACCO USE IN PAST V A CNTRL WSTRN YEAR quit 11/21/16 [facility] Nov 20, 2016 08:15 PM TOBACCO INPATIENT VA CN[facility]L WSTRN DECLINES MEDS [facility] Jun 26, 2016 07:05 AM CURRENT SMOKER [facility] [place] [facility] Jun 26, 2016 07:05 AM V1-PT NOT INTERESTED IN VA CNTRL WSTRN QUIT TOBACCO [facility] Feb 28, 2014 01:16 PM CURRENT SMOKER VA CNTRL W STRN < 1 PP week [facility] Feb 28, 2014 01:16 PM V1-PT DECLINES REF TO VA C NTRL WSTRN TOBACCO CESS PRGM [facility] Feb 28, 2014 01:16 PM V1-PT DECLINES TOBACCO VA CNTRL WSTRN CESSATION MEDS [facility] Feb 28, 2014 01:16 PM V1-PT NOT INTERESTED IN VA CNTRL WSTRN QUIT TOBACCO USE [facility] August 17, 2013 09:43 AM V1-PT DECLINES REF TO VA C NTRL WSTRN TOBACCO CESS PRGM [facility] August 17, 2013 09:43 AM V1-PT DECLINES TOBACCO VA CNTRL WSTRN CESSATION MEDS [facility] August 17, 2013 09:43 AM V1-PT THINKING ABOUT QUIT VA CNTRL WSTRN TOBACCO USE [facility] Jan 28, 2013 09:57 AM CURRENT SMOKER VA CNTRL W STR[facility] Jan 28, 2013 09:57 AM V1-PT DECLINES REF TO VA C NTRL WSTRN TOBACCO CESS PRGM [facility] S Jan 28, 2013 09:57 AM V1-PT DECLINES TOBACCO VA CNTRL WSTRN CESSATION MEDS [facility] Jan 28, 2013 09:57 AM V1-PT NOT INTERESTED IN VA CNTRL WSTRN QUIT TOBACCO USE [facility] Oct 18, 2011 02:45 PM QUIT TOBACCO USE IN PAST V A CNTRL WSTRN YEAR [facility] Oct 18, 2011 12:56 PM CURRENT SMOKER VA CNTRL W STRN half pack a week [place] [facility] Encounter Notes: All associated encounter notes This section contains the clinical notes associated to the Encounter. 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
--- OUTSIDE RECORDS SUMMARY | 2021-12-31 15:59 | XMS_ITS | Encounter Summary ---
:1990 Author Organization Department [facility] rs Address [address] [place] [id number] Support Name Relationship Address Phone RESHMA ROUSE Unavailable [address] [place] [address] RESHMA ROUSE Unavailable [address] [place] [address] Selected Encounter This section includes the information on record at [place] for the Encounter. Date/Time Encounter Type Encounter Reason Provider Source Description Mar 07, 2021 PSYTX W PT 30 PSYCHOLOGICAL ICD-10-CM F48.1 MALINOFSKY,T 01:00 PM MINUTES TESTING Depersonalization-saroj ERESA ealization syndrome with Provider Comments: Depersonalization disorder ([facility] [id number]) IHE Encounter Template Text not used by [facility] Assessments - Encounter Diagnoses This section includes the primary and secondary diagnoses documented for the Encounter. Date/Time Primary/Secondary Diagnosis Name Provider Source Diagnosis Mar 07, 2021 PRIMARY Depersonalizati MALINOFSKY,TER [facility] W STRN 01:54 PM on-derealizatio [facility] [place] [facility] n syndrome Mar 07, 2021 SECONDARY Post-traumatic MALINOFSKY,TER [facility] WS TRN 01:54 PM stress [facility] [place] [facility] disorder, chronic Plan of Treatment: Future Appointments (+ 6 months) and Future Tests (+/- 45 days) The Plan of Treatment section includes future care activities for the patient from all [place] treatmentfacilities. This section includes future appointments and future orders which are active, pending orscheduled.Future Appointments This section includes appointments that were scheduled to occur 6 months from the date of the Encounter, up to a maximum of 20 appointments. The data comes from all [place] treatment facilities. Appointment Date/Time Appointment Type Appointment Facili ty Name Mar 14, 2021 01:00 PM AMBULATORY - PSYCHIATRY [place] [facility] [place] [facility] Apr 27, 2021 11:30 AM AMBULATORY - MEDICINE [place] [facility] [place] [facility] May 07, 2021 08:15 AM AMBULATORY - REHAB MEDICINE [place] [facility] [place] [facility] May 09, 2021 12:15 PM AMBULATORY - MEDICINE [place] [facility] [place] [facility] Jun 04, 2021 12:00 PM AMBULATORY - MEDICINE [place] [facility] [place] [facility] August 10, 2021 08:15 AM AMBULATORY - MEDICINE [place] [facility] [place] [facility] August 10, 2021 08:45 AM AMBULATORY - MEDICINE [place] [facility] [place] [facility] August 10, 2021 09:30 AM AMBULATORY - NONE [place] [facility] [place] [facility] August 14, 2021 08:30 AM AMBULATORY - MEDICINE [place] [facility] [place] [facility] August 28, 2021 11:00 AM AMBULATORY - REHAB MEDICINE [place] [facility] Lab Results: +/- 30 days of the encounter This section includes the Chemistry and Hematology Lab Results on record with [place] for the patient. Radiology Reports and Pathology Reports are provided separately, in subsequent sections.Lab Results This section contains the Chemistry/Hematology Results that were resulted 30 days before or 30 daysafter the date of the Encounter. Date/Time Source Result Type Result - Unit Interpretation Reference Range Comment [facility] Specimen Type: NASOPHARYNX 2020 08:30 [facility] SCREENING Comment: Test p erformed on CepCoupOptionid Genexpert at [facility]. This test is authorized for emergency use only. It is authorized for the duration of the declaration that circumstances exist just AM PANEL ifying the autho rization for detection and/or diagnosis of COVID-19. Unless the authorization is terminated or revoked sooner. This test cannot rule out diseases caused by other bacterial or viral patho (CEPHEID) gens. False nega tive results may occur [...] agents for clinical symptoms. Cepheid FLUVID: HCPs: https://www.fda.gov/media/179866/download Patients: https://www.fda.gov/media/887497/download Ordering Provid er: EMORY SAMANIEGO Report Released Date/Time: Mar 25, 2021 05:11 PM Reporting Lab: [place] CNT WSTRN [address] [address] Performing Lab: [facility] WSTRN [address] [address] COVID-19 SCR (CEPHEID) N Negativ e Social History: Smoking Status (Most current) and Tobacco Use (All prior to encounter date) This section includes the most current, and the historical, smoking and tobacco-related health factors from the [place] facility where the Encounter took place.Current Smoking Status This section includes the most current smoking, or tobacco-related health factor, from the [place] facility where the Encounter took place. Date/Time Current Smoking Status Comment Facility August 03, 2020 02:00 PM VA-TOBACCO USER EVERY DAY [facility] Tobacco Use History This section includes a history of the smoking, or tobacco- related health factors, that were collected on or before the date of the Encounter. The data comes from the [place] facility where the Encounter took place. 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 [facility] [facility] August 03, 2020 02:00 PM VA-TOBACCO USE MED NO VA C [facility]TRL [place] [facility] August 03, 2020 02:00 PM VA-TOBACCO USE WI 30 MIN V A CNTRL W[place] [facility] August 03, 2020 02:00 PM VA-TOBACCO USER EVERY DAY [place] [facility] [place] [facility] August 10, 2019 01:26 PM VA-TOBACCO NEVER USED VA C NTRL [place] [facility] Jul 15, 2018 03:43 PM VA-TOBACCO FORMER USER [facility] CN[facility]L [place] [facility] Jul 15, 2018 03:43 PM VA-TOBACCO QUIT 1 TO < 5 [facility] August 22, 2017 03:08 PM QUIT TOBACCO USE 1-7 VA CN [facility] August 22, 2017 03:08 PM V1-QUIT TOBACCO USE > 1 [facility] Dec 31, 2016 01:45 PM QUIT TOBACCO USE IN PAST V A CNTRL WSTRN YEAR quit 11/21/[facility] Nov 20, 2016 08:15 PM TOBACCO INPATIENT [facility] CN[facility]L W[facility] Jun 26, 2016 07:05 AM CURRENT SMOKER [facility] Jun 26, 2016 07:05 AM V1-PT NOT INTERESTED IN VA CNTRL WSTRN QUIT TOBACCO USE [facility] Feb 28, 2014 01:16 PM CURRENT SMOKER VA CNTRL W STRN < [address] [facility] Feb 28, 2014 01:16 PM V1-PT DECLINES REF TO VA C NTRL WSTRN TOBACCO CESS [facility] Feb 28, 2014 01:16 PM V1-PT DECLINES TOBACCO VA CNTRL WSTRN CESSATION MEDS [facility] Feb 28, 2014 01:16 PM V1-PT NOT INTERESTED IN VA CNTRL WSTRN QUIT TOBACCO USE [facility] August 17, 2013 09:43 AM V1-PT DECLINES REF TO VA C NTRL WSTRN TOBACCO CESS PR[facility] August 17, 2013 09:43 AM V1-PT DECLINES TOBACCO VA CN[facility]L W[facility] August 17, 2013 09:43 AM V1-PT THINKING ABOUT QUIT VA CNTRL WSTRN [facility]BACCO [facility] Jan 28, 2013 09:57 AM CURRENT SMOKER [facility] Jan 28, 2013 09:57 AM V1-PT DECLINES REF TO VA C NTRL WSTRN TOBACCO CESS [facility] Jan 28, 2013 09:57 AM V1-PT DECLINES TOBACCO VA CNTRL WSTRN CESSATION MEDS [facility] Jan 28, 2013 09:57 AM V1-PT NOT INTERESTED IN VA CNTRL WSTRN QUIT TOBACCO USE [facility] Oct 18, 2011 02:45 PM QUIT TOBACCO USE IN PAST V A CNTRL WSTRN YEAR [facility] Oct 18, 2011 12:56 PM CURRENT SMOKER VA CNTRL W STRN half pack a week [facility] Encounter Notes: All associated encounter notes This section contains the clinical notes associated to the Encounter. Date/Time Encounter Note(s) Provider Source Mar 07, 2021 01:38 NEUROPSYCHOLOGY NOTE: VICKY MEDRANO [place] [facility] TRL W[facility] PM LOCAL TITLE: NEUROPSYCHOLOGICAL REHABILITATION [facility] STANDARD TITLE: NEUROPSYCHOLOGY NOTE DATE OF NOTE: MAR 07, 2021@13:38 ENTRY DATE: MAR 07, 2021@13:38:37 AUTHOR: VICKY MEDRANO EXP COSIGNER: URGENCY: STATUS: COMPLETED Grayson Rouse ret urns for a second cognitive rehab session following psychological testing. We reviewed the first F/U session discussion. The recommendations then included (1) go ing back to Physical Therapy, and then doing martial arts training; (2) grounding by us ing the 5 senses. Today, I asked him to talk about any stimuli and /or thoughts leading to aggressive impulse. He said there was none. Last week, in discussion we only came up with training re: being ready t o fight. He thought the aggressive impulse might simply b e a male feeling . Testosterone lab level was reviewed (it is nestor l). He disclosed recent dreams which awakened him wi th feelings of panic. He said the content of the dreams burks d no relation to his waking life, nor any conscious fears. He also disclosed that he has used cannabis 15 times this year, and that he feels it helps him in genera l. He said the aggressive impulses are unrelated to cannabis. INTERVENTION: Psychoeducation: introduced him to EMOTION = bod ian sensations, thoughts, feelings, urges. RESPONSE: He was able to describe the bodily sensations, t houghts, feelings related to recent aggressive urges. He said the he feels wa rm, and the back of his head feels tingly. His thought is that he should not express the aggressiveness at home, which could bother the children; and also hurt his hand (he has punched a basement brick wall). If he fights someone outside of the home, it's controlled insofar that it only goes to the point of mutual decision to stop. HOMEWORK: I asked him to monitor urges , along with bodily sensations, thoughts, feelings. RATIONALE: Mindfully watching his urges , bodily sensations, thoughts, feelings will enlist more awareness. RTC: one more session only for purpose of rehab related to test f/u. 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
--- OUTSIDE RECORDS SUMMARY | 2021-12-31 15:59 | XMS_ITS ---
:1990 Author Organization Department of [facility] rs Address [address] [place] [id number] Support Name Relationship Address Phone RESHMA BARROW Unavailable [address] [place] [address] RESHMA BARROW Unavailable [address] [place] [address] Selected Encounter This section includes the information on record at [place] for the Encounter. Date/Time Encounter Type Encounter Description Reason Provider Source Mar 14, 2021 01:00 Outpatient Encounter PSYCHOLOGICAL TESTING PM IHE Encounter Template Text not used by MI Plan of Treatment: Future Appointments (+ 6 months) and Future Tests (+/- 45 days) The Plan of Treatment section includes future care activities for the patient from all [place] treatmentfacilities. This section includes future appointments and future orders which are active, pending orscheduled.Future Appointments This section includes appointments that were scheduled to occur 6 months from the date of the Encounter, up to a maximum of 20 appointments. The data comes from all [place] treatment facilities. Appointment Date/Time Appointment Type Appointment Facili ty Name Apr 27, 2021 11:30 AM AMBULATORY - MEDICINE [place] [facility] May 07, 2021 08:15 AM [facility] [place] [facility] May 09, 2021 12:15 PM AMBULATORY - MEDICINE [place] [facility] Jun 04, 2021 12:00 PM AMBULATORY - MEDICINE [place] [facility] August 10, 2021 08:15 AM AMBULATORY - MEDICINE [place] [facility] August 10, 2021 08:45 AM AMBULATORY - MEDICINE [place]TR [place] [facility] August 10, 2021 09:30 AM [facility] August 14, 2021 08:30 AM AMBULATORY - MEDICINE [facility] August 28, 2021 11:00 AM AMBULATORY - REHAB MEDICINE [facility] Valeria BATEMAN [facility] Lab Results: +/- 30 days of the encounter This section includes the Chemistry and Hematology Lab Results on record with MI for the patient. Radiology Reports and Pathology Reports are provided separately, in subsequent sections.Lab Results This section contains the Chemistry/Hematology Results that were resulted 30 days before or 30 daysafter the date of the Encounter. Date/Time Source Result Type Result - Unit Interpretation Reference Range Comment Mar 26, [facility] COVID-19 Specimen Type: NASOPHARYNX 2020 08:30 [facility] SCREENING Comment: Test p erformed on [employer] Genexpert at [facility]. This test is authorized for emergency use only. It is authorized for the duration of the declaration that circumstances exist just AM PANEL ifying the autho rization for detection and/or diagnosis of COVID-19. Unless the authorization is terminated or revoked sooner. This test cannot rule out diseases caused by other bacterial or viral patho (HongdianzhiboID) gens. False nega tive results may occur [...] agents for clinical symptoms. Cepheid FLUVID: HCPs: https://www.fda.gov/media/272051/download Patients: https://www.fda.gov/media/926997/download Ordering Provid er: EMORY SAMANIEGO Report Released Date/Time: Mar 25, 2021 05:11 PM Reporting Lab: [address] [address] Performing Lab: [address] [address] COVID-19 SCR (CEPHEID) N Negativ e Social History: Smoking Status (Most current) and Tobacco Use (All prior to encounter date) This section includes the most current, and the historical, smoking and tobacco-related health factors from the [place] facility where the Encounter took place.Current Smoking Status This section includes the most current smoking, or tobacco-related health factor, from the [place] facility where the Encounter took place. Date/Time Current Smoking Status Comment Facility August 03, 2020 02:00 PM VA-TOBACCO USER EVERY DAY [place] CNTRL [facility]STRN [facility] Tobacco Use History This section includes a history of the smoking, or tobacco- related health factors, that were collected on or before the date of the Encounter. The data comes from the [place] facility where the Encounter took place. Date/Time Smoking Status/Tobacco Comment Facility Use August 03, 2020 02:00 PM VA-TOBACCO USE ADVICE [facility] August 03, 2020 02:00 PM VA-TOBACCO USE CUFFER NO [facility] [place] [facility] August 03, 2020 02:00 PM VA-TOBACCO USE MED NO VA C [place]L [place] [facility] August 03, 2020 02:00 PM VA-TOBACCO USE WI 30 MIN V A CNTRL WSTRN OF [place] [facility] August 03, 2020 02:00 PM VA-TOBACCO USER EVERY DAY [place] [facility] [place] [facility] August 10, 2019 01:26 PM VA-TOBACCO NEVER USED VA C NTRL [place] [facility] Jul 15, 2018 03:43 PM VA-TOBACCO FORMER USER [facility]L [place] [facility] Jul 15, 2018 03:43 PM VA-TOBACCO QUIT 1 TO < 5 V A CNTRL WSTRN YRS [facility] August 22, 2017 03:08 PM QUIT TOBACCO USE 1-7 VA CN TRL WSTRN YEARS AGO [facility] August 22, 2017 03:08 PM V1-QUIT TOBACCO USE > 1 VA CNTRL W[place]N YEAR AGO [place] [facility] Dec 31, 2016 01:45 PM QUIT TOBACCO USE IN PAST V A CNTRL WSTRN YEAR quit 11/21/16 [facility] Nov 20, 2016 08:15 PM TOBACCO INPATIENT VA CNTRL W[facility] DECLINES MEDS [place] [facility] Jun 26, 2016 07:05 AM CURRENT SMOKER VA [facility]L [place] [facility] Jun 26, 2016 07:05 AM V1-PT NOT INTERESTED IN VA CNTRL W[place] QUIT TOBACCO USE [place] [facility] Feb 28, 2014 01:16 PM CURRENT SMOKER VA CNTRL W STRN < 1 PP week [facility] Feb 28, 2014 01:16 PM V1-PT DECLINES REF TO VA C NTRL WSTRN TOBACCO CESS PRGM [place] Feb 28, 2014 01:16 PM V1-PT DECLINES TOBACCO VA CNTRL WSTRN CESSATION MEDS [facility] Feb 28, 2014 01:16 PM V1-PT NOT INTERESTED IN VA CNTRL W[place]N QUIT TOBACCO USE [place] [facility] August 17, 2013 09:43 AM V1-PT DECLINES REF TO VA C NTRL WSTRN TOBACCO CESS PRGM [facility] August 17, 2013 09:43 AM V1-PT DECLINES TOBACCO VA CNTRL WSTRN CESSATION MEDS [facility] August 17, 2013 09:43 AM V1-PT THINKING ABOUT QUIT VA CNTRL WSTRN TOBACCO USE [facility] Jan 28, 2013 09:57 AM CURRENT SMOKER [place]L [place] [facility] Jan 28, 2013 09:57 AM V1-PT DECLINES REF TO VA C NTRL WSTRN TOBACCO [facility]ESS [facility] Jan 28, 2013 09:57 AM V1-PT DECLINES TOBACCO VA CNTRL WSTRN CESSATION MEDS [facility] Jan 28, 2013 09:57 AM V1-PT NOT INTERESTED IN VA CNTRL WSTRN QUIT TOBACCO USE [facility] Oct 18, 2011 02:45 PM QUIT TOBACCO USE IN PAST V A CNTRL WSTRN YEAR [facility] Oct 18, 2011 12:56 PM CURRENT SMOKER VA CNTRL W STRN half pack a week [facility] Encounter Notes: All associated encounter notes This section contains the clinical notes associated to the Encounter. Date/Time Encounter Note(s) Provider Source Mar 14, 2021 01:26 CLERICAL NOTE: VICKY MEDRANO [facility] CN[facility] WS TRN PM LOCAL TITLE: APPOINTMENT NO SHOW [facility] STANDARD TITLE: CLERICAL NOTE DATE OF NOTE: MAR 14, 2021@13:26 ENTRY DATE: MAR 14, 2021@13:27:05 AUTHOR: VICKY MEDRANO EXP COSIGNER: URGENCY: STATUS: COMPLETED Patient Name: DRAGAN BARROW Patient SSN: [id number] Date and time of Appointment No show : 03/14/21 13:00 PATIENT PHONE - PHONE NUMBER [CELLULAR] - Patient's medical record was reviewed. Follow-up actions were determined and initiated: Please check/complete as applies: [X]Telephoned Directly [ ]Re-scheduled for next available appt [ ]Sent a N0-show letter ( must call for appointment) [ ]Other (Emergent/Overbook, etc.): Additional Comments: left multiple voicemails Future Clinic Visits 04/30/2021 08:00 CWM/NO/PACT 7 /es/ VICKY MEDRANO,PhD Neuropsychologist Signed: 03/14/2021 13:27 Receipt Acknowledged By: * AWAITING SIGNATURE * JOSÉ SINGH
--- OUTSIDE RECORDS SUMMARY | 2021-12-31 15:59 | XMS_ITS ---
:1990 Author Organization Department [facility] rs Address [address] [place] [id number] Support Name Relationship Address Phone RESHMA BARROW Unavailable [address] [place] [address] RESHMA BARROW Unavailable [address] [place] [address] Selected Encounter This section includes the information on record at [place] for the Encounter. Date/Time Encounter Type Encounter Reason Provider Source Description Apr 09, 2021 08:01 Outpatient PRIMARY NITIN RENDON AM Encounter CARE/MEDICINE DHRUV Juan Jose Encounter Template Text not used by LA Plan of Treatment: Future Appointments (+ 6 months) and Future Tests (+/- 45 days) The Plan of Treatment section includes future care activities for the patient from all [place] treatmentfacilities. This section includes future appointments and future orders which are active, pending orscheduled.Future Appointments This section includes appointments that were scheduled to occur 6 months from the date of the Encounter, up to a maximum of 20 appointments. The data comes from all [place] treatment facilities. Appointment Date/Time Appointment Type Appointment Facili ty Name Apr 27, 2021 11:30 AM AMBULATORY - MEDICINE [place]TR [place] [facility] May 07, 2021 08:15 AM [facility] [place] [facility] May 09, 2021 12:15 PM AMBULATORY - MEDICINE LA CNTR [place] [facility] Jun 04, 2021 12:00 PM AMBULATORY - MEDICINE LA CNTR [place] [facility] August 10, 2021 08:15 AM AMBULATORY - MEDICINE [place] CNTR [place] [facility] August 10, 2021 08:45 AM AMBULATORY - MEDICINE [place]L [place] [facility] August 10, 2021 09:30 AM [facility]ULATORY - NONE [facility] [place] [facility] August 14, 2021 08:30 AM AMBULATORY - MEDICINE [place] CNTRL [place] [facility] August 28, 2021 11:00 AM AMBULATORY - [facility] Sep 13, 2021 10:00 AM [facility] [place] [facility] Sep 21, 2021 08:00 AM [facility] Lab Results: +/- 30 days of the encounter This section includes the Chemistry and Hematology Lab Results on record with [place] for the patient. Radiology Reports and Pathology Reports are provided separately, in subsequent sections.Lab Results This section contains the Chemistry/Hematology Results that were resulted 30 days before or 30 daysafter the date of the Encounter. Date/Time Source Result Type Result - Unit Interpretation Reference Range Comment Mar 26, [facility] COVID-19 Specimen Type: NASOPHARYNX 2020 08:30 [facility] SCREENING Comment: Test p erformed on [employer] Genexpert at [facility]. This test is authorized for emergency use only. It is authorized for the duration of the declaration that circumstances exist just AM PANEL ifying the autho rization for detection and/or diagnosis of COVID-19. Unless the authorization is terminated or revoked sooner. This test cannot rule out diseases caused by other bacterial or viral patho (CEPClean MembranesID) gens. False nega tive results may occur [...] agents for clinical symptoms. Cepheid FLUVID: HCPs: https://www.fda.gov/media/563846/download Patients: https://www.fda.gov/media/934439/download Ordering Provid er: LOVEN,EMORY A Report Released Date/Time: Mar 25, 2021 05:11 PM Reporting Lab: [place] [facility] [address] [facility] [address] Performing Lab: [place] CNTR[place] [facility] [address] [facility] [address] COVID-19 SCR (CEPHEID) N Negativ e Social History: Smoking Status (Most current) and Tobacco Use (All prior to encounter date) This section includes the most current, and the historical, smoking and tobacco-related health factors from the [place] facility where the Encounter took place.Current Smoking Status This section includes the most current smoking, or tobacco-related health factor, from the [place] facility where the Encounter took place. Date/Time Current Smoking Status Comment Facility August 03, 2020 02:00 PM VA-TOBACCO USER EVERY DAY [facility] Tobacco Use History This section includes a history of the smoking, or tobacco- related health factors, that were collected on or before the date of the Encounter. The data comes from the [place] facility where the Encounter took place. 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 [place] [facility] August 03, 2020 02:00 PM VA-TOBACCO USE MED NO VA C NTRL [place] [facility] August 03, 2020 02:00 PM VA-TOBACCO USE WI 30 MIN V A CNTRL WSTRN [place] [facility] August 03, 2020 02:00 PM VA-TOBACCO USER EVERY DAY VA [facility]L [place] [facility] August 10, 2019 01:26 PM VA-TOBACCO NEVER USED VA C NTRL [place] [facility] Jul 15, 2018 03:43 PM VA-TOBACCO FORMER USER VA CNTRL [place] [facility] Jul 15, 2018 03:43 PM VA-TOBACCO QUIT 1 TO < 5 V A CN[facility]L [facility] August 22, 2017 03:08 PM QUIT TOBACCO USE 1-7 VA CN TRL WSTRN YEARS AGO [facility] August 22, 2017 03:08 PM V1-QUIT TOBACCO USE > 1 VA CNTRL [facility]STRN [facility] Dec 31, 2016 01:45 PM QUIT TOBACCO USE IN PAST V A CNTRL WSTRN YEAR quit 11/21/16 [facility] Nov 20, 2016 08:15 PM TOBACCO INPATIENT VA CNTRL WSTRN DECLINES MEDS [facility] Jun 26, 2016 07:05 AM CURRENT SMOKER VA CNTRL W [place] [facility] Jun 26, 2016 07:05 AM V1-PT NOT INTERESTED IN VA CNTRL WSTRN QUIT [facility]BACCO USE [facility] Feb 28, 2014 01:16 PM CURRENT SMOKER VA CNTRL W STRN < 1 PP week [facility] Feb 28, 2014 01:16 PM V1-PT DECLINES REF TO VA C NTRL WSTRN TOBACCO CESS [facility] Feb 28, 2014 01:16 PM V1-PT DECLINES TOBACCO VA CNTRL WSTRN CESSATION MEDS [facility] Feb 28, 2014 01:16 PM V1-PT NOT INTERESTED IN VA CNTRL WSTRN QUIT TOBACCO USE [facility] August 17, 2013 09:43 AM V1-PT DECLINES REF TO VA C NTRL WSTRN TOBACCO CESS [facility] August 17, 2013 09:43 AM V1-PT DECLINES TOBACCO VA CNTRL WSTRN CESSATION MEDS [facility] August 17, 2013 09:43 AM V1-PT THINKING ABOUT QUIT VA CNTRL WSTRN TOBACCO USE [facility] Jan 28, 2013 09:57 AM CURRENT SMOKER VA CN[facility]L [place] [facility] Jan 28, 2013 09:57 AM V1-PT DECLINES REF TO VA C NTRL WSTRN TOBACCO CESS [facility] Jan 28, 2013 09:57 AM V1-PT DECLINES TOBACCO VA CNTRL WSTRN [facility]ESSATION MEDS [facility] Jan 28, 2013 09:57 AM V1-PT NOT INTERESTED IN VA CNTRL WSTRN QUIT TOBACCO USE [facility] Oct 18, 2011 02:45 PM QUIT TOBACCO USE IN PAST V A CNTRL WSTRN YEAR [facility] Oct 18, 2011 12:56 PM CURRENT SMOKER VA CNTRL W STRN half pack a week [facility] Encounter Notes: All associated encounter notes This section contains the clinical notes associated to the Encounter. Date/Time Encounter Note(s) Provider Source Apr 09, 2021 08:01 AM PRIMARY CARE SECURE MESSAGING: NATALIE RENDON [place] CNTRL WSTRN LOCAL TITLE: PRIMARY CARE SECURE MESSAGING LIOR MERCADO [place] [employer] [facility] STANDARD TITLE: PRIMARY CARE SECURE MESSAGING DATE OF NOTE: APR 09, 2021@08:01:26 ENTRY DATE: APR 09, 2021@08:01:26 AUTHOR: NITIN RENDON EXP COSIGNER: URGENCY: STATUS: COMPLETED PRIMARY CARE SECURE MESSAGING Has ADDENDA * ------Original Message Sent: 04/08/2021 08:54 PM From: DRAGAN BARROW To: Valeria LUQUE_PRIMARY CARE_[facility] Subject: Having severe stomach issues Can I make an appointment to talk about my stoma ch issues I feel like it's getting worse. Over the past few years. Thank jacqui /martita/ NIITN RENDON RN MSN REGISTERED NURSE Signed: 04/09/2021 08:01 Receipt Acknowledged By: 04/09/2021 09:38 /martita/ RANDELL KO ADVANCED PUTTY TINTER MAKER 04/09/2021 ADDENDUM STATUS: COMPLETED AMSA called and scheduled appt /martita/ RANDELL KO ADVANCED PUTTY TINTER MAKER Signed: 04/09/2021 09:39
--- OUTSIDE RECORDS SUMMARY | 2021-12-31 15:59 | XMS_ITS ---
:1990 Author Organization Department [facility] rs Address [address] [place] [id number] Support Name Relationship Address Phone RESHMA BARROW Unavailable [address] [place] [address] RESHMA BARROW Unavailable [address] [place] [address] Selected Encounter This section includes the information on record at [place] for the Encounter. Date/Time Encounter Type Encounter Reason Provider Source Description Apr 27, 2021 OFFICE O/P EST PRIMARY ICD-10-CM R19.7 DOLLY MOCTEZUMA 11:30 AM MOD 30-39 MIN CARE/MEDICINE Diarrhea, AM J unspecified with Provider Comments: Diarrhea (SNOMED CT [id number]) IHE Encounter Template Text not used by [place] Assessments - Encounter Diagnoses This section includes the primary and secondary diagnoses documented for the Encounter. Date/Time Primary/Secondary Diagnosis Name Provider Source Diagnosis Apr 27, 2021 PRIMARY Diarrhea, DOLLY MOCTEZUMA [place] CNTL WSTR N 12:55 PM unspecified AM J [place] [facility] Apr 27, 2021 SECONDARY Hyperlipidemia, DOLLY MOCTEZUMA [place] CNTRL W STRN 12:55 PM unspecified AM J [place] [facility] Apr 27, 2021 SECONDARY Male erectile DOLLY MOCTEZUMA [place] CNTRL WST RN 12:55 PM disorder AM J [place] [facility] Apr 27, 2021 SECONDARY Other low back DOLLY MOCTEZUMA [place] CNTRL WS TRN 12:55 PM pain AM J [place] [facility] Plan of Treatment: Future Appointments [...] 20 appointments. The data comes from all [place] treatment facilities. Appointment Date/Time Appointment Type Appointment Facili ty Name May 07, 2021 08:15 AM AMBULATORY - REHAB MEDICINE [place] CNTRL W STRN [place] [facility] May 09, 2021 12:15 PM AMBULATORY - MEDICINE [place] CNTRL WSTRN [place] [facility] Jun 04, 2021 12:00 PM AMBULATORY - MEDICINE [place] CNTRL WSTRN [place] [facility] August 10, 2021 08:15 AM AMBULATORY - MEDICINE [place] CNTRL [place] [facility] August 10, 2021 08:45 AM AMBULATORY - MEDICINE [place] CNTRL WSTR[place] [facility] August 10, 2021 09:30 AM AMBULATORY - NONE [place] CNTRL WSTRN [place] [facility] August 14, 2021 08:30 AM AMBULATORY - MEDICINE [place] CNTRL WSTR[place] [facility] August 28, 2021 11:00 AM AMBULATORY - REHAB MEDICINE [place] CNTRL W STRN [place] [facility] Sep 13, 2021 10:00 AM AMBULATORY - MEDICINE [place] CNTRL W[place] [facility] Sep 21, 2021 08:00 AM AMBULATORY - MEDICINE [place] CNTRL WSTR[place] [facility] Vital Signs: All taken on the encounter date This section contains inpatient and outpatient Vital Signs collected on the date of the Encounter. Date/Time Temperature Pulse Blood Respiratory SP02 Pain Height Weight Iker dy Source Pressure Rate Mass Index Apr 27, 98.4 F 64 120/80 16 /min 99 % 0 226 lb 32 [place] 2021 11:22 /min mm[Hg] CNTRL AM W[place]N [place] [facility] Social History: Smoking Status (Most current) and Tobacco Use (All prior to encounter date) This section includes the most current, and the historical, smoking and tobacco-related health factors from the [place] facility where the Encounter took place.Current Smoking Status This section includes the most current smoking, or tobacco-related health factor, from the [place] facility where the Encounter took place. Date/Time Current Smoking Status [facility] August 03, 2020 02:00 PM VA-TOBACCO USER EVERY DAY [place] CNTRL WSTRN [facility] Tobacco Use History This section includes a history of the smoking, or tobacco- related health factors, that were collected on or before the date of the Encounter. The data comes from the [place] facility where the Encounter took place. 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 [facility] August 03, 2020 02:00 PM VA-TOBACCO USE MED NO VA C NTRL WSTRN [facility] August 03, 2020 02:00 PM VA-TOBACCO USE WI 30 MIN V A CNTRL WSTRN OF WAKEUP [facility] August 03, 2020 02:00 PM VA-TOBACCO USER EVERY DAY VA CNTRL WSTRN [facility] August 10, 2019 01:26 PM VA-TOBACCO NEVER USED RI C NTRL WSTRN [facility] Jul 15, 2018 03:43 PM VA-TOBACCO FORMER USER VA CNTRL WSTRN [facility] Jul 15, 2018 03:43 PM VA-TOBACCO QUIT 1 TO < 5 V A CNTRL WSTRN YRS [facility] August 22, 2017 03:08 PM QUIT TOBACCO USE 1-7 VA CN TRL WSTRN YEARS AGO [facility] August 22, 2017 03:08 PM V1-QUIT TOBACCO USE > 1 VA CNTRL WSTRN YEAR AGO [facility] Dec 31, 2016 01:45 PM QUIT TOBACCO USE IN PAST V A CNTRL WSTRN YEAR quit 11/21/16 [facility] Nov 20, 2016 08:15 PM TOBACCO INPATIENT VA CNTRL WSTRN [place] MEDS [facility] Jun 26, 2016 07:05 AM CURRENT SMOKER VA CNTRL W STRN [facility] Jun 26, 2016 07:05 AM V1-PT NOT INTERESTED IN VA CNTRL WSTRN QUIT TOBACCO USE [facility] Feb 28, 2014 01:16 PM CURRENT SMOKER VA CNTRL W STRN < 1 PP week [facility] Feb 28, 2014 01:16 PM V1-PT DECLINES REF TO VA C NTRL WSTRN TOBACCO CESS [facility] Feb 28, 2014 01:16 PM V1-PT DECLINES TOBACCO VA CNTRL WSTRN CESSATION [facility] Feb 28, 2014 01:16 PM V1-PT NOT INTERESTED IN VA CNTRL WSTRN QUIT [facility]ACCO [facility] August 17, 2013 09:43 AM V1-PT DECLINES REF TO VA C NTRL WSTRN [facility]ACCO [facility]ESS [facility] August 17, 2013 09:43 AM V1-PT DECLINES TOBACCO VA CNTRL WSTRN [facility] August 17, 2013 09:43 AM V1-PT THINKING ABOUT QUIT VA CNTRL WSTRN TOBACCO USE [facility] Jan 28, 2013 09:57 AM CURRENT SMOKER VA CN[facility]L W STRN [facility] Jan 28, 2013 09:57 AM V1-PT DECLINES REF TO VA C NTRL WSTRN TOBACCO [facility]ESS [facility] Jan 28, 2013 09:57 AM V1-PT DECLINES TOBACCO VA CNTRL WSTRN [facility] Jan 28, 2013 09:57 AM V1-PT NOT INTERESTED IN VA CNTRL WSTRN QUIT [facility]BACCO [facility] Oct 18, 2011 02:45 PM QUIT TOBACCO USE IN PAST V A CNTRL WSTRN YEAR [facility] Oct 18, 2011 12:56 PM CURRENT SMOKER VA CNTRL W STRN half pack a week [facility] Encounter Notes: All associated encounter notes This section contains the clinical notes associated to the Encounter. 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 HPI: Pleasant male [place] h ere to follow up. He does have intermittent low back pain, was seen by [facility], they suggested PT, consult placed. He is also concerned with intermittent diarrhea w ith associated urge. No known triggers, past efforts with psyllium not helpful. Suggested GI consult, he is agreement. PMH: Active problems - Computerized Problem List is t he source for the followin. Depersonalization disorder 2. Joint pain 3. Reduced libido 4. Erectile dysfunction 5. Adult screening status 04/12/2019 - Pre op sc reening EKG- NSR/ cxr - neg 6. Chronic post-traumatic stress disorder [employer] combat Reviewed 7. Depressive disorder Reviewed 8. Intermittent explosive disorder Reviewed 9. Hypersomnia 10. Low back pain 11. Tinnitus 12. Alcohol abuse (SNOMED CT [id number]) Allergies: Patient has answered NKA The following VA and Non-VA meds were re conciled with patient. The patient was educated on the use of the medications including indication and side effects. Active and Recently Outpatient Medicatio ns (excluding Supplies): Pending Outpatient Medications Status 1) SILDENAFIL CITRATE 100MG TAB TAKE ONE TABLET BY MOUTH PENDING ONCE DAILY NEEDED TAKE 1 HOUR PRIOR TO SEX UAL ACTIVITY Review of Systems: Constitutional: (-)for Fevers , chills, weakness, nights sweats Cardiac: (-) for: Chest pain, HUSAIN, Palpitations Respiratory: (-) for: Cough, Wheeze, Dyspnea, D OE GI/Digestive: (-) for: change in appetite, dysp hagia, heartburn, abdominal pain, change in stool /Urologic: Male : (-) for: dysuria, frequen cy, nocturia, urgency, hematuria, incontinence Musculoskeletal: (-) for: Muscle cramps, joint pain or stiffness Neurologic: (-) for : Headaches, dizziness Skin: (-) for: Rash, lesions, acne, dry skin, i tching, hives On examination: 98.4 F [36.9 C] (04/27/2021 11:22)120/80 (04/27/2021 11:22)64 (04/27/2021 11:22) 16 (04/27/2021 11:22)0 (04/01 11:22)BMI: 32.5226 lb [102.7 kg] (04/27/2021 11:22) [place] is alert and oriented X3 Neck: supple without masses, trachea midline, ln not palpable, no thyromegaly Cardiovasc: 2plus carotids w ithout bruits, no JVD Heart Reguler rate and rhythm NL S1S2 no S3 or murmur Respiration: Normal respiratory effort, lungs cl ear ABD: Benign normal active bowel sounds no HSM no rebound or referred pain EXT: no clubbing, edema, or cyanosis Neuro:grossly non-focal reflexes symmetric bilat , toes downgoing, CN 2 to 10 intact Derm: no worrisome lesions, rashes or ulcers : COVSCR CEPHEID: N All diagnostics from past month were reviewed wi th patient. Assessment/plan: Active problems - Computerized Problem List is t he source for the followin. Diarrhea - see above 2. Low back pain - see above 3. Erectile dysfunction - someone gave him a 100 mg tab of sildenfil which he found helpful so I increased his VA dose. 4. Elevated cholesterol - will get updated fasti ng labs. Health Care Maintenance: Declines flu vaccine Review of medial record = 5mins Time spent with Patient including shared decisio n making = 20 mins Post visit documentation = 5mins Total time = 30 mins Follow up visit in 6 mos. Alert to PACT RN - Labs as necessary to address clinical status. Influenza Immunization: The patient declines to receive the recommended dose of seasonal influenza vaccine. Medication Reconciliation: Outpatient: Has the patient been [...] with a VA or non-VA provider. /es/ Catracho Moctezuma DNP, LIFT MANAGER-BC, CNL Primary Care Nurse Practitioner Signed: 04/27/2021 12:53 Apr 27, 2021 11:24 PREVENTIVE MEDICINE NURSING NOTE: ABHIJEET ERWIN RI CNTRL WSTRN AM [facility] TITLE: CLINICAL REMINDERS/NURSING E [place] [facility] STANDARD TITLE: PREVENTIVE MEDICINE NURSING NOTE DATE OF NOTE: APR 27, 2021@11:24 ENTRY DATE: APR 27, 2021@11:25:01 AUTHOR: HÉCTOR ERWIN EXP ONURIGNER: URGENCY: STATUS: COMPLETED Depression Screening: Perform PHQ-2 A PHQ-2 screen was performed. The score was 0 w hich is a negative screen for depression. Over the past two weeks, how often have you bee n bothered by the following problems? 1. Little interest or pleasure in doing things Not at all 2. Feeling down, depressed, or hopeless Not at all Homelessness/Food Insecurity Screen: In the past 2 months, have you been living in s table housing that you own, rent, or stay in as part of a household? Y es - Living in stable housing. Are you worried or concerned that in the next 2 months you may NOT have stable housing that you own, rent, or stay in a s part of a household? No - Not worried about housing near future The [place] reports the following: Within the past 12 months, you worried whether your food would run out before you got money to buy more. Never true Within the past 12 months, the food you bought just didn't last and you didn't have money to get more. Never true Relationship Health & Safety Screen: Environment is safe to proceed INFORMED CONSENT TO SCREEN & DOCUMENT: Individual consents to documentation? Yes Individual consents to proceed with screening? Yes PRIMARY SCREEN: In the past 12 months, how often did a current or former intimate partner (e.g., boyfriend, girlfriend, , , se xual partner): Scream or curse at you: Never Insult or talk down to you: Never Threaten you with harm: Never Physically hurt you: Never In the past 12 months, how often did a current or former intimate partner force or pressure you to have sexual co ntact against your will, or when you were unable to say no? Never PRIMARY SCREEN RESULTS: The individual denied all forms of IPV above (i .e., answered never to all 5 items above). ??The [employer] tool is US copyright protected by Warner Mitchell MD, and the user has full rights to use it throughout the [employer] system. DISPOSITION: Provided general IPV education. Provided contact information for IPVAP Angelita spears or Iván. /es/ HÉCTOR ERWIN LPN Signed: 04/27/2021 11:28
--- OUTSIDE RECORDS SUMMARY | 2021-12-31 15:59 | XMS_ITS | Encounter Summary ---
:1990 Author Organization Department [facility] rs Address [address] [place] [address] Support Name Relationship Address Phone RESHMA BARROW Unavailable [address] [place] [address] RESHMA BARROW Unavailable [address] [place] [address] Selected Encounter This section includes the information on record at [place] for the Encounter. Date/Time Encounter Type Encounter Description Reason Provider Source Apr 05, 2021 02:14 Outpatient Encounter PRIMARY CARE/MEDICINE PM IHE Encounter Template Text not used by [place] Plan of Treatment: Future Appointments (+ 6 months) and Future Tests (+/- 45 days) The Plan of Treatment section includes future care activities for the patient from all [place] treatmentfacilities. This section includes future appointments and future orders which are active, pending orscheduled.Future Appointments This section includes appointments that were scheduled to occur 6 months from the date of the Encounter, up to a maximum of 20 appointments. The data comes from all [place] treatment facilities. Appointment Date/Time Appointment Type Appointment Facili ty Name Apr 27, 2021 11:30 AM AMBULATORY - MEDICINE [place] CNTRL [place]STR[place] [facility] May 07, 2021 08:15 AM AMBULATORY - REHAB MEDICINE [place] CNTR W STRN [place] [facility] May 09, 2021 12:15 PM AMBULATORY - MEDICINE [place] CNTRL WSTR[place] [facility] Jun 04, 2021 12:00 PM AMBULATORY - MEDICINE [place] CNTRL [place]STR[place] [facility] August 10, 2021 08:15 AM AMBULATORY - MEDICINE [place] CNTRL [place] [facility] August 10, 2021 08:45 AM AMBULATORY - MEDICINE [place] CNTRL [place] [facility] August 10, 2021 09:30 AM [facility] [place] [facility] August 14, 2021 08:30 AM [facility] August 28, 2021 11:00 AM [facility]UL[facility] Sep 13, 2021 10:00 AM [facility]ULAT[facility] Sep 21, 2021 08:00 AM [facility] Lab Results: +/- 30 days of the encounter This section includes the Chemistry and Hematology Lab Results on record with [place] for the patient. Radiology Reports and Pathology Reports are provided separately, in subsequent sections.Lab Results This section contains the Chemistry/Hematology Results that were resulted 30 days before or 30 daysafter the date of the Encounter. Date/Time Source Result Type Result - Unit Interpretation Reference Range Comment Mar 26, [facility] COVID-19 Specimen Type: NASOPHARYNX 2020 08:30 [facility] SCREENING Comment: Test p erformed on Quanterix Genexpert at [facility]. This test is authorized for emergency use only. It is authorized for the duration of the declaration that circumstances exist just AM PANEL ifying the autho rization for detection and/or diagnosis of COVID-19. Unless the authorization is terminated or revoked sooner. This test cannot rule out diseases caused by other bacterial or viral patho (CEPLayarID) gens. False nega tive results may occur [...] agents for clinical symptoms. Cepheid FLUVID: HCPs: https://www.fda.gov/media/812358/download Patients: https://www.fda.gov/media/554413/download Ordering Provid er: EMORY SAMANIEGO Report Released Date/Time: Mar 25, 2021 05:11 PM Reporting Lab: [place] CNTRL WSTR[place] [facility] [address] [facility] [address] Performing Lab: [place] CNTRL WSTR[place] [facility] [address] [facility] [address] COVID-19 SCR (CEPHEID) N Negativ e Social History: Smoking Status (Most current) and Tobacco Use (All prior to encounter date) This section includes the most current, and the historical, smoking and tobacco-related health factors from the [place] facility where the Encounter took place.Current Smoking Status This section includes the most current smoking, or tobacco-related health factor, from the [place] facility where the Encounter took place. Date/Time Current Smoking Status Comment Facility August 03, 2020 02:00 PM VA-TOBACCO USER EVERY DAY [place] [facility]TRL [facility] Tobacco Use History This section includes a history of the smoking, or tobacco- related health factors, that were collected on or before the date of the Encounter. The data comes from the [place] facility where the Encounter took place. 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 VA CNTRL WSTRN [place] [facility] August 03, 2020 02:00 PM VA-TOBACCO USE MED NO VA C NTRL WSTRN [place] [facility] August 03, 2020 02:00 PM VA-TOBACCO USE WI 30 MIN V A CNTRL WSTRN [facility] [place] [facility] August 03, 2020 02:00 PM VA-TOBACCO USER EVERY DAY VA CNTRL WSTRN [place] [facility] August 10, 2019 01:26 PM VA-TOBACCO NEVER USED VA C NTRL WSTRN [place] [facility] Jul 15, 2018 03:43 PM VA-TOBACCO FORMER USER VA CNTRL WSTRN [place] [facility] Jul 15, 2018 03:43 PM VA-TOBACCO QUIT 1 TO < 5 [facility] August 22, 2017 03:08 PM QUIT TOBACCO USE 1-7 VA CN TRL WSTRN [facility] August 22, 2017 03:08 PM V1-QUIT TOBACCO USE > 1 VA CNTRL WSTRN [facility] A[facility] Dec 31, 2016 01:45 PM QUIT TOBACCO USE IN PAST V A CNTRL WSTRN YEAR quit 11/21/16 [facility] Nov 20, 2016 08:15 PM TOBACCO INPATIENT VA CNTRL WSTRN [facility] Jun 26, 2016 07:05 AM CURRENT SMOKER VA CNTRL W STRN [place] [facility] Jun 26, 2016 07:05 AM V1-PT NOT INTERESTED IN VA CNTRL WSTRN QUIT TOBACCO USE [place] [facility] Feb 28, 2014 01:16 PM CURRENT SMOKER VA CNTRL W STRN < 1 PP week [facility] Feb 28, 2014 01:16 PM V1-PT DECLINES REF TO VA C NTRL WSTRN [facility]ACCO [facility]ESS [facility] Feb 28, 2014 01:16 PM V1-PT DECLINES TOBACCO VA CNTRL WSTRN CESSATION MEDS [facility] Feb 28, 2014 01:16 PM V1-PT NOT INTERESTED IN VA CNTRL WSTRN QUIT TOBACCO USE [facility] August 17, 2013 09:43 AM V1-PT DECLINES REF TO VA C NTRL WSTRN [facility]BACCO [facility]ESS [facility] August 17, 2013 09:43 AM V1-PT DECLINES TOBACCO VA CNTRL WSTRN CESSATION MEDS [facility] August 17, 2013 09:43 AM V1-PT THINKING ABOUT QUIT VA CNTRL WSTRN TOBACCO USE [facility] Jan 28, 2013 09:57 AM CURRENT SMOKER VA CNTRL W STR[place] [facility] Jan 28, 2013 09:57 AM V1-PT DECLINES REF TO VA C NTRL WSTRN [facility]BACCO [facility]ESS [facility] Jan 28, 2013 09:57 AM V1-PT DECLINES TOBACCO VA CNTRL WSTRN CESSATION [facility]S [facility] Jan 28, 2013 09:57 AM V1-PT NOT INTERESTED IN VA CNTRL WSTRN QUIT TOBACCO USE [facility] Oct 18, 2011 02:45 PM QUIT TOBACCO USE IN PAST V A CNTRL WSTRN YEAR [facility] Oct 18, 2011 12:56 PM CURRENT SMOKER VA CNTRL W STRN half pack a week [facility] Encounter Notes: All associated encounter notes This section contains the clinical notes associated to the Encounter. Date/Time Encounter Note(s) Provider Source Apr 05, 2021 02:14 PM PRIMARY CARE TELEPHONE ENCOUNTER NOTE: RANDELL ROJAS CNTRL WSTRSenait RAMOS LOCAL TITLE: TELEPHONE NOTE/PRIMARY CARE [facility] STANDARD TITLE: PRIMARY CARE TELEPHONE ENCOUNTER NOTE DATE OF NOTE: APR 05, 2021@14:14 ENTRY DATE: APR 05, 2021@14:15 AUTHOR: RANDELL KO EXP COSIGNER: URGENCY: STATUS: COMPLETED AMSA called and LM asking TIMOTHY ALEJO to switch his 04/23/2021 APPT to a phone call. Asked for a call back to confirm. /martita/ RANDELL KO [employer] CONSULTANT Signed: 04/05/2021 14:15
--- OUTSIDE RECORDS SUMMARY | 2021-12-31 16:00 | XMS_ITS ---
:1990 Author Organization Department of [facility] rs Address [address] [place] [id number] Support Name Relationship Address Phone RESHMA BARROW Unavailable [address] [place] [address] RESHMA BARROW Unavailable [address] [place] [address] Selected Encounter This section includes the information on record at [place] for the Encounter. Date/Time Encounter Type Encounter Description Reason Provider Source Feb 27, 2021 09:52 Outpatient Encounter PSYCHOLOGICAL TESTING AM E Encounter Template Text not used by [place] Plan of Treatment: Future Appointments (+ 6 months) and Future Tests (+/- 45 days) The Plan of Treatment section includes future care activities for the patient from all [place] treatmentfacilities. This section includes future appointments and future orders which are active, pending orscheduled.Future Appointments This section includes appointments that were scheduled to occur 6 months from the date of the Encounter, up to a maximum of 20 appointments. The data comes from all [place] treatment facilities. Appointment Date/Time Appointment Type Appointment Facili ty Name Feb 28, 2021 11:00 AM AMBULATORY - PSYCHIATRY [place] [facility] [place] [facility] Mar 07, 2021 01:00 PM AMBULATORY - PSYCHIATRY [place] [facility] [place] [facility] Mar 14, 2021 01:00 PM AMBULATORY - PSYCHIATRY [place] [facility] [place] [facility] Apr 27, 2021 11:30 AM AMBULATORY - MEDICINE [place] [facility] [place] [facility] May 07, 2021 08:15 AM AMBULATORY - REHAB MEDICINE [place] [facility] W [place] [facility] May 09, 2021 12:15 PM AMBULATORY - MEDICINE [place] [facility] [place] [facility] Jun 04, 2021 12:00 PM [facility] August 10, 2021 08:15 AM [facility] August 10, 2021 08:45 AM [facility] August 10, 2021 09:30 AM [facility] August 14, 2021 08:30 AM [facility] Lab Results: +/- 30 days of the encounter This section includes the Chemistry and Hematology Lab Results on record with [place] for the patient. Radiology Reports and Pathology Reports are provided separately, in subsequent sections.Lab Results This section contains the Chemistry/Hematology Results that were resulted 30 days before or 30 daysafter the date of the Encounter. Date/Time Source Result Type Result - Unit Interpretation Reference Range Comment Mar 26, [facility] COVID-19 Specimen Type: NASOPHARYNX 2020 08:30 [facility] SCREENING Comment: Test p erformed on Cytoguide Genexpert at [facility]. This test is authorized for emergency use only. It is authorized for the duration of the declaration that circumstances exist just AM PANEL ifying the autho rization for detection and/or diagnosis of COVID-19. Unless the authorization is terminated or revoked sooner. This test cannot rule out diseases caused by other bacterial or viral patho (CEPMen's MarketID) gens. False nega tive results may occur [...] agents for clinical symptoms. Cepheid FLUVID: HCPs: https://www.fda.gov/media/229362/download Patients: https://www.fda.gov/media/667272/download Ordering Provid er: EMORY SAMANIEGO Report Released Date/Time: Mar 25, 2021 05:11 PM Reporting Lab: [facility] [place] [facility] [address] [facility] [address] Performing Lab: [place] [facility] [place] [facility] [address] [facility] [address] COVID-19 SCR (CEPHEID) N Negativ e Social History: Smoking Status (Most current) and Tobacco Use (All prior to encounter date) This section includes the most current, and the historical, smoking and tobacco-related health factors from the [place] facility where the Encounter took place.Current Smoking Status This section includes the most current smoking, or tobacco-related health factor, from the [place] facility where the Encounter took place. Date/Time Current Smoking Status Comment Facility August 03, 2020 02:00 PM VA-TOBACCO USER EVERY DAY [facility] Tobacco Use History This section includes a history of the smoking, or tobacco- related health factors, that were collected on or before the date of the Encounter. The data comes from the [place] facility where the Encounter took place. 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 [facility] [place] [facility] August 03, 2020 02:00 PM VA-TOBACCO USE MED NO VA C N[facility]L [place] [facility] August 03, 2020 02:00 PM VA-TOBACCO USE WI 30 MIN V A CNTRL W[facility] August 03, 2020 02:00 PM VA-TOBACCO USER EVERY DAY [facility] [place] [facility] August 10, 2019 01:26 PM VA-TOBACCO NEVER USED VA C NTRL [facility] [facility] Jul 15, 2018 03:43 PM VA-TOBACCO FORMER USER [facility] [place] [facility] Jul 15, 2018 03:43 PM VA-TOBACCO QUIT 1 TO < 5 V A CNTRL WSTRN YRS [place] [facility] August 22, 2017 03:08 PM QUIT TOBACCO USE 1-7 VA CN TRL WSTRN YEARS AGO [place] [facility] August 22, 2017 03:08 PM V1-QUIT TOBACCO USE > 1 VA CNTRL W[place]N YEAR AGO [place] [facility] Dec 31, 2016 01:45 PM QUIT TOBACCO USE IN PAST V A CNTRL WSTRN YEAR quit 11/21/16 [facility] Nov 20, 2016 08:15 PM TOBACCO INPATIENT VA [facility] DECLINES MEDS [place] [facility] Jun 26, 2016 07:05 AM CURRENT SMOKER VA [facility]L W [place] [facility] Jun 26, 2016 07:05 AM V1-PT NOT INTERESTED IN VA CN[facility]L W[facility] QUIT TOBACCO USE [place] [facility] Feb 28, 2014 01:16 PM CURRENT SMOKER VA CNTRL W STRN < 1 PP [facility] Feb 28, 2014 01:16 PM V1-PT DECLINES REF TO VA C NTRL WSTRN TOBACCO CESS [facility] Feb 28, 2014 01:16 PM V1-PT DECLINES TOBACCO VA CN[facility]L W[facility] CESSATION MEDS [facility] Feb 28, 2014 01:16 PM V1-PT NOT INTERESTED IN VA CNTRL WSTRN QUIT TOBACCO USE [facility] August 17, 2013 09:43 AM V1-PT DECLINES REF TO VA C NTRL WSTRN TOBACCO CESS [facility] August 17, 2013 09:43 AM V1-PT DECLINES TOBACCO VA CNTRL WSTRN CESSATION MEDS [facility] August 17, 2013 09:43 AM V1-PT THINKING ABOUT QUIT VA CNTRL WSTRN TOBACCO USE [facility] Jan 28, 2013 09:57 AM CURRENT SMOKER VA [facility]L [place] [facility] Jan 28, 2013 09:57 AM V1-PT DECLINES REF TO VA C NTRL WSTRN TOBACCO CESS [facility] Jan 28, 2013 09:57 AM V1-PT DECLINES TOBACCO VA CNTRL WSTRN CESSATION MEDS [facility] Jan 28, 2013 09:57 AM V1-PT NOT INTERESTED IN VA CNTRL WSTRN QUIT TOBACCO USE [facility] Oct 18, 2011 02:45 PM QUIT TOBACCO USE IN PAST V A CNTRL WSTRN YEAR [facility] Oct 18, 2011 12:56 PM CURRENT SMOKER VA CNTRL W STRN half pack a week [facility] Encounter Notes: All associated encounter notes This section contains the clinical notes associated to the Encounter. Date/Time Encounter Note(s) Provider Source Feb 27, 2021 09:52 AM ADMINISTRATIVE NOTE: NATI HERCULES CN TRL WSTRN LOCAL TITLE: ADMINISTRATIVE NOTE [facility] STANDARD TITLE: ADMINISTRATIVE NOTE DATE OF NOTE: FEB 27, 2021@09:52 ENTRY DATE: FEB 27, 2021@09:52:50 AUTHOR: NATI HERCULES EXP COSIGNER: URGENCY: STATUS: COMPLETED MSA spoke with the - This is a re minder call for your [facility] in clinic appt FridayFebruary 28@11:00- Thank you. /martita/ NATI HERCULES SEAM RUBBING MACHINE OPERATOR Signed: 02/27/2021 09:53
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
[2021-12-31] MEDS: diazePAM 2 MG TABLET 5 MG PO (16:05)
== END 2021-12-31 18:11 | disposition home or self-care (01) ==
PROVIDERS: Emergency Provider Emergency Medicine; PCP Nurse Practitioner Family
DX: M54.16 Radiculopathy, lumbar region (principal)
CPT/HCPCS: 99282; 99283